=== PATIENT | male | born 1980 | race American Indian/Alaskan Native ===

== ENCOUNTER 2019-06-14 09:56 | Emergency (ER) | payer SELFPAY ==
[2019-06-14 10:59] VITALS: BP 216/129; PULSE 71; RESP 16; TEMP 36.6; O2SAT 95; BMI 56.4
--- NOTE | 2019-06-14 11:22 | CT_ITS ---
WS: [id number] CT HEAD NONCONTRAST HISTORY: worst headache ever TECHNIQUE: Contiguous axial imaging performed through the brain in 2.5 mm imaging. Bone and soft tiss ue windows. Sagittal and coronal reformats reviewed. All CT scans at [facility] use at ast one of these dose optimization techniques: automated exposure control; mA and/or kV adjustment pe r patient size (includes targeted exams where dose is matched to clinical indication); or iterative r econstruction. DLP: 1087.6 mGy.cm COMPARISON: 12/10/2014 No acute intracranial hemorrhage, midline shift or mass effect. No atrophy or prior infarcts or herniation. Ventricles: No ventricular dilatation. 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 Paranasal sinuses: As visualized are clear. Mastoid air cells: Well pneumatized. Calvarium and scalp: Skull is intact with no soft tissue edema or swelling. CT/CT head wo con* [id number] IMPRESSION: No acute intracranial process. Stable noncontrast head CT since 12/10/2014.
--- NOTE | 2019-06-14 11:30 | W.ED.HA ---
HPI - Headache General: Chief Complaint: Headache Stated Complaint: Headache Time Seen by Provider: 06/14/19 11:11 Source: patient Mode of arrival: ambulatory Limitations: no limitations History of Present Illness: HPI Narrative: Patient comes in today with complaints of headache for 2 days. Patient thinks he might have a sinus infection or ear infection. Patient appears mildly unwell. Patient appears in moderate pain. Patient has a history of hypertension and gout. Review of Systems General: Reports: 10 or more systems reviewed and unremarkable except in HPI and below Neuro: Reports: headache PFSH ED PFSH: Statuses (acute, chronic, etc) shown below reflect problem list status as previously entered and may not be historically accurate Social History Smoking and tobacco status: never smoked Physical Exam Const: COMMON NORMALS: no apparent distress and oriented x3 GENERAL APPEARANCE: cooperative HENMT: COMMON NORMALS: normocephalic, external ears normal, EAC's normal and external nose normal HEAD & SCALP: normal to inspection and normocephalic FACE & SINUS: normal facial exam NOSE: external nose normal GENERAL EAR: hearing not grossly impaired EXTERNAL EAR: Yes external ears normal EXTERNAL AUDITORY CANAL: EAC's normal TYMPANIC MEMBRANE: TM abnormal TM laterality: right Details: erythematous and left Details: bulging and erythematous MOUTH: oral and palatal mucosa normal THROAT: posterior oropharynx normal Eye: COMMON NORMALS: PERRL and EOMs intact bilaterally PUPIL: Yes PERRL Neck/C-Spine: COMMON NORMALS: full ROM and no lymphadenopathy Lymph: LYMPHATIC: no lymphedema noted Chest: COMMONS NORMALS: inspection of chest normal and palpation of chest normal Resp: COMMON NORMALS: normal respiratory effort and clear to auscultation bilaterally AUSCULTATION: clear to auscultation bilaterally Cardio: COMMON NORMALS: regular rate and regular rhythm RATE: regular rate RHYTHM: regular rhythm GI: COMMON NORMALS: normal to inspection, nondistended, normoactive bowel sounds and non-tender : COMMON NORMALS: Yes no CVA tenderness BLADDER/KIDNEY EXAM: Yes no CVA tenderness Back/Pelvis: COMMON NORMALS: no CVA tenderness and thoracic and lumbar spine normal to inspection Extremity: COMMON NORMALS: normal to inspection GENERAL: No edema Neuro: COMMON NORMALS: oriented x3, moves all extremities and no focal motor deficits Psych: COMMON NORMALS: mental status grossly normal and cooperative Skin: COMMON NORMALS: no rashes or lesions noted GENERAL SKIN EXAM: no rashes or lesions noted Course ED course: 1222, patient reports some improvement in headache, reports being more tired now. blood pressure improved to 180 systolic. wjw 1320, patient reports headache is much improved at this time. reviewed exam and recommendations for further treatment, and home instructions. wjw Vital Signs: Vital signs: Vital Signs Temperature 97.9 F 06/14/19 10:59 Pulse Rate 71 06/14/19 10:59 Respiratory Rate 16 06/14/19 10:59 Blood Pressure 216/129 06/14/19 10:59 Pulse Oximetry 95 06/14/19 10:59 MDM - Headache MDM Narrative: Medical decision making narrative: Patient comes in with ear pain and headache. Patient's blood pressure is significantly high. Exam notes bilateral tympanic membranes are erythematous. Lungs are clear to auscultation. Heart rate is regular with normal auscultation. Abdomen soft nontender. Patient moves all extremities well. No focal neural deficits is noted. Differential diagnosis includes uncontrolled hypertension, hypertensive emergency, migraine, sinusitis, otitis media, subarachnoid hemorrhage. CT scan of the head was normal. Laboratory values were insignificant. Patient was treated for headache with Reglan and Benadryl with significant improvement. Patient was also given clonidine for blood pressure. Patient reports understanding of care plan and need for follow-up. Patient was treated for otitis media and medication for pain. Patient states understanding and agreed to plan. Lab Data: Labs: Lab Results 06/14/19 06/14/19 Range/Units 12:00 12:00 WBC 4.3 (4.0-10.0) 10^3/ uL RBC 4.81 (4.1-5.3) 10^6/u L Hgb 14.1 (11.7-16.6) g/dL Hct 41.1 L (42.0-52.0) % MCV 85.4 (80-94) fL MCH 29.3 (28.0-34.0) pg MCHC 34.3 (30.0-36.0) g/dL RDW 13.0 (12.1-15.1) % Plt Count 163 (130-400) 10^3/c mm MPV 11.2 H (7.4-10.4) fL Neut % (Auto) 62.9 % Lymph % (Auto) 27.1 % [place] % (Auto) 7.7 % Eos % (Auto) 1.6 % Baso % (Auto) 0.5 % Neut # (Auto) 2.7 (1.8-7.7) 10^3/u L Lymph # (Auto) 1.2 (0.8-4.8) 10^3/u L [place] # (Auto) 0.3 (0.2-0.9) 10^3/u L Eos # (Auto) 0.1 (0.0-0.8) 10^3/u L Baso # (Auto) 0.0 (0.0-0.1) 10^3/u L Nucleated RBC % (a uto) 0 % Nucleated RBCs # 0.0 /100WBC Sodium 139 (136-145) mmol/L Potassium 4.3 (3.5-5.1) mmol/L Chloride 100 (98-107) mmol/L Carbon Dioxide 27 (22-29) mmol/L Anion Gap 16.3 (5-19) BUN 13 (6-20) mg/dL Creatinine 1.0 (0.7-1.2) mg/dL GFR Calculation 83.2 L (90-130) mL/min Glucose 111 H (74-109) mg/dL Calcium 10.2 (8.5-10.5) mg/dL Total Bilirubin 0.6 (0.15-1.2) mg/dL AST 28 (0-40) U/L ALT 24 (0-41) U/L Alkaline Phosphata se 78 (40-130) IU/L Total Protein 7.4 (6.6-8.7) g/dL Albumin 4.7 (3.5-5.2) g/dL Globulin 2.7 (1.3-4.6) g/dL Discharge Plan Discharge Patient Disposition: Home, Self-Care Clinical Impression: Otitis media Qualifiers: Otitis media type: unspecified Chronicity: acute Qualified Code(s): H66.90 - Otitis media, unspecified, unspecified ear Headache Qualifiers: Headache type: unspecified Headache chronicity pattern: acute headache Intractability: intractable Qualified Code(s): R51 - Headache Condition: Stable Prescriptions: New hydrocodone-acetaminophen 5-325 mg tablet 1 tab PO Q6H PRN (Reason: pain) Qty: 7 RF: 0 amoxicillin 500 mg tablet 1,000 mg PO BID 10 Days Qty: 40 RF: 0 No Action ibuprofen 200 mg Tablet 600 mg PO Q4H PRN (Reason: Headache) RF: 0 Discharge Orders: Discharge Order (Routine); Ordered 06/14/19 Ordered By: Brian Dumont Referrals: [facility] [Other] Discharge Diet: Usual diet Discharge Activity: Resume usual activity Patient Instructions: Acute Headache (ED) Activity Restrictions/Additional Instructions: Drink plenty of water with medication Continue routine medication for hypertension Healthy diet and exercise Follow-up with primary care in one week Return to ER for return of symptoms or new concerns Coding Level of Care Code 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
[2019-06-14] MEDS: metoclopramide 5 mg/mL SDV 2 mL 10 MG IVP (11:59)
[2019-06-14] MEDS: diphenhydrAMINE 50 mg/mL SDV 1mL 25 MG IVP (11:59)
[2019-06-14] MEDS: cloNIDine 0.1 mg Tablet PO (11:59)
[2019-06-14 12:11] LABS: Basophils % 0.5 %; Eosinophils # 0.1 10^3/uL (0.0-0.8); Eosinophils % 1.6 %; Hematocrit 41.1 % (42.0-52.0); Hemoglobin 14.1 g/dL (11.7-16.6); Lymphocytes # 1.2 10^3/uL (0.8-4.8); Lymphocytes % 27.1 %; Mean Corpuscular HGB Conc 34.3 g/dL (30.0-36.0); Mean Corpuscular Hemoglobin 29.3 pg (28.0-34.0); Mean Corpuscular Volume 85.4 fL (80-94); Mean Platelet Volume 11.2 fL (7.4-10.4); Monocytes # 0.3 10^3/uL (0.2-0.9); Monocytes % 7.7 %; Neutrophils # 2.7 10^3/uL (1.8-7.7); Neutrophils % 62.9 %; Nucleated Red Blood Cells % 0 %; Platelet Count 163 10^3/cmm (130-400); Red Blood Count 4.81 10^6/uL (4.1-5.3); White Blood Count 4.3 10^3/uL (4.0-10.0)
[2019-06-14 12:41] LABS: Alanine Aminotransferase 24 U/L (0-41); Albumin Level 4.7 g/dL (3.5-5.2); Alkaline Phosphatase 78 IU/L (40-130); Anion Gap 16.3 (5-19); Aspartate Amino Transferase 28 U/L (0-40); Blood Urea Nitrogen 13 mg/dL (6-20); Calcium 10.2 mg/dL (8.5-10.5); Carbon Dioxide 27 mmol/L (22-29); Chloride 100 mmol/L (98-107); Creatinine Clr Calc Pharmacy 151.9955; Globulin 2.7 g/dL (1.3-4.6); Glomerular Filtration Rate 83.2 mL/min (90-130); Glucose 111 mg/dL (74-109); Potassium 4.3 mmol/L (3.5-5.1); Sodium 139 mmol/L (136-145); Total Bilirubin 0.6 mg/dL (0.15-1.2); Total Protein 7.4 g/dL (6.6-8.7)
[2019-06-14 13:43] VITALS: BP 149/99; PULSE 72; RESP 18
== END 2019-06-14 13:21 | disposition home or self-care (01) ==
PROVIDERS: Emergency Provider Nurse Practitioner Family
DX: R51 Headache (principal); H66.90 Otitis media, unspecified, unspecified ear
CPT/HCPCS: 70450; 80053; 85025; 96374; 99281; J1200; J2765

== ENCOUNTER 2019-07-14 17:21 | Emergency (ER) | payer SELFPAY ==
[2019-07-14 18:14] VITALS: BP 201/98; PULSE 75; RESP 16; TEMP 37.1; O2SAT 96
--- NOTE | 2019-07-14 18:15 | ED_ITS ---
HPI - Skin/Abscess/Foreign Bdy General: Stated complaint: spider bite Time Seen by Provider: 07/14/19 18:08 History of Present Illness: HPI narrative: Patient is a 38-year-old male who comes into the ED with possible spider bite and cellulitis. Patient states that 2 days ago he woke up and he had small bites/ulcer the anterior part of his left lower leg. He went and saw an urgent care yesterday to get her evaluated. The determined he had some cellulitis and put patient on Bactrim. Patient picked up antibiotic today and took his first dose today. Patient states that his spider bite/cellulitis has gotten worse since yesterday. Patient does say he has a li ttle bit of pain when he walks due to the cellulitis and he takes ibuprofen for the pain. Denies any fever, nausea, vomiting. Associated symptoms: Deny chills, fever(s), nausea or vomiting Review of Systems Const: Denies: fever, chills or fatigue Eyes: Denies: change in vision or eye discomfort ENMT: Denies: throat pain, painful swallowing, nasal discharge or nasal congestion Card: Denies: chest pain, palpitations, edema, swelling of feet/ankles, shortness of breath on exertion or shortness of breath when lying down Resp: Denies: shortness of breath, productive cough or non-productive cough GI: Denies: abdominal pain, nausea, vomiting, diarrhea, constipation or blood in stool : Denies: flank pain, difficulty urinating, painful urination or blood in urine Musc: Reports: extremity pain (left Lower extremity); Denies: neck pain, back pain or extremity swelling Skin/Breast: Reports: rash; Denies: new lesion Neuro: Denies: headache, numbness in extremities or weakness in extremities [facility] ED PFSH: Social History Smoking and tobacco status: never smoked Physical Exam Const: COMMON NORMALS: oriented x3 HENMT: COMMON NORMALS: normocephalic HEAD & SCALP: normocephalic MOUTH: oral and palatal mucosa normal THROAT: posterior oropharynx normal and uvula midline Neck/C-Spine: COMMON NORMALS: supple GENERAL: Yes normal visual inspection Resp: COMMON NORMALS: normal respiratory effort, no retractions, no use of accessory muscles and clear to auscultation bilaterally AUSCULTATION: clear to auscultation bilaterally Cardio: COMMON NORMALS: regular rate, regular rhythm, S1 normal heart sound, S2 normal heart sound, no gallops, no clicks, no murmurs and peripheral pulses 2+ throughout RATE: regular rate RHYTHM: regular rhythm HEART SOUNDS: S1 normal and S2 normal PERIPHERAL PULSES: pulses 2+ throughout GI: COMMON NORMALS: normal to inspection, nondistended, normoactive bowel sounds, soft to palpation, non-tender and no masses PALPATION: Yes soft : COMMON NORMALS: Yes no CVA tenderness BLADDER/KIDNEY EXAM: Yes no CVA tenderness Back/Pelvis: COMMON NORMALS: no CVA tenderness Extremity: COMMON NORMALS: normal to inspection LEFT LOWER EXTREMITY: Yes lower leg Left lower leg: Yes palpation (tender when palpating over cellulitis/spider bite) and Yes neurovascular exam (intact) Neuro: COMMON NORMALS: oriented x3 and moves all extremities Skin: NARRATIVE SKIN EXAM: Patient has small circular ulcer on his left lower extremity. He has some erythema and warmth surrounding the ulcer. It is hard and nonfluctuant. There appears to be no abscess to drain. LESIONS: lesion noted Course Vital Signs: Vital signs: Vital Signs Temperature 98.8 F 07/14/19 18:14 Pulse Rate 75 07/14/19 18:14 Respiratory Rate 16 07/14/19 18:14 Blood Pressure 201/98 07/14/19 18:14 Pulse Oximetry 96 07/14/19 18:14 Discharge Plan Discharge Patient Disposition: Home, Self-Care Clinical Impression: Cellulitis Qualifiers: Site of cellulitis: extremity Site of cellulitis of extremity: lower extremity Laterality: left Qualified Code(s): L03.116 - Cellulitis of left lower limb Condition: Stable Prescriptions: No Action sulfamethoxazole-trimethoprim [Bactrim] 400-80 mg tablet 1 tab PO BID 10 Days Qty: 20 RF: 0 ibuprofen 200 mg Tablet 600 mg PO Q4H PRN (Reason: Headache) RF: 0 Discharge Orders: Discharge Order (Routine); Ordered 07/14/19 Ordered By: Afshin Wu Referrals: [facility] [Other] Huber Sanders NP [Primary Care Provider] - Discharge Diet: Regular Discharge Activity: Resume usual activity Patient Instructions: Cellulitis Activity Restrictions/Additional Instructions: Follow-up reevaluation in 5 days and either the emergency department, urgent care over PCP. Continue taking your antibiotics as previously prescribed. Take ibuprofen for pain and for any fevers. Drink plenty of fluids and stay hydrated. Clean bite area daily with warm soapy water. Coding Level of Care Code ED Clinical Support Tech for Epi Hassan Exam Comprehensive
[2019-07-14 19:09] VITALS: BP 181/84; PULSE 78; RESP 16; TEMP 36.7; O2SAT 96
== END 2019-07-14 19:12 | disposition home or self-care (01) ==
PROVIDERS: Emergency Provider Physician Assistant; PCP Nurse Practitioner Family
DX: L03.116 Cellulitis of left lower limb (principal)
CPT/HCPCS: 99281; 99282

== ENCOUNTER 2019-09-30 16:05 | Emergency (ER) | payer SELFPAY ==
[2019-09-30 16:29] VITALS: BP 218/129; PULSE 86; RESP 17; TEMP 36.6; O2SAT 97; BMI 59.0
== END 2019-09-30 19:55 | disposition left against medical advice (07) ==
LOC: ER 16:45
PROVIDERS: Emergency Provider Physician Assistant; PCP Nurse Practitioner Family
DX: Z53.21 Procedure and treatment not carried out due to patient leaving prior to being seen by health care provider (principal)
CPT/HCPCS: 99281

== ENCOUNTER 2019-10-01 09:26 | Emergency (ER) | payer SELFPAY ==
[2019-10-01 09:52] VITALS: BMI 59.0
[2019-10-01 10:04] VITALS: BP 211/136; PULSE 77; RESP 18; TEMP 36.9; O2SAT 98
--- NOTE | 2019-10-01 10:13 | PC.NURSE ---
Noted swelling to lower bilateral legs, ankles and feet. Pulse strong and regular in both feet.
--- NOTE | 2019-10-01 10:29 | CT_ITS ---
WS: [id number] CT LUMBAR SPINE, noncontrast. HISTORY: back pain and swelling of extremities TECHNIQUE: Contiguous 2.5 mm axial imaging are performed. Sagittal and coronal reformats are submitte d and reviewed. All CT scans at [facility] use at least one of these dose optimization te chniques: automated exposure control; mA and/or kV adjustment per patient size (includes targeted exa ms where dose is matched to clinical indication); or iterative reconstruction. IV contrast: None DLP: 1905.68 mGy.cm COMPARISON: 06/07/2016 Posterior lumbar alignment is normal. Vacuum disc phenomenon at L2-3. No lumbar spine fracture. Pedic les are all intact. Small endplate osteophytes at all levels. L1-2: Normal. L2-3: Mild annular disc bulging. No stenosis. L3-4: Normal. L4-5: Mild osteophytic ridging and annular disc bulging. Small RIGHT foraminal disc protrusion with m ild contact on the L4 nerve root. Mild widening of facet joints at L4-5. L5-S1: Mild annular disc bulging. Visualized retroperitoneum is normal. CT/CT lumbar spine wo con* [id number] IMPRESSION: 1. No acute lumbar spine fracture. 2. Development of mild degenerative disc disease at L2-3. 3. Very mild widening of the facet joints at L4-5. 4. Very small RIGHT foraminal disc protrusion at L4-5 with slight contact on t he L4 nerve root. Similar to the prior study. No progression.
--- NOTE | 2019-10-01 10:29 | CT_ITS ---
WS: [id number] CT THORACIC SPINE HISTORY: back pain and swelling of extremities TECHNIQUE: Contiguous 2.5 mm axial images are reviewed to thoracic spine. Images are reformatted in s agittal and coronal planes. All CT scans at [facility] use at least one of these dose opt imization techniques: automated exposure control; mA and/or kV adjustment per patient size (includes targeted exams where dose is matched to clinical indication); or iterative reconstruction. DLP: 2380.77 mGy.cm COMPARISON: None available. Posterior thoracic alignment is normal. Mild disc space narrowing and desiccation throughout the lumb ar spine. Vacuum disc phenomenon from T8-9 through T12-L1. Mild anterior wedging of T7 and T8. No acu te fractures. There are multiple small Schmorl's nodes defects throughout the thoracic spine. No comp romise of the cord or disc protrusions. Bilateral foraminal narrowing is mild to moderate from T1-2 through T4-5. No central stenosis. Osteop hyte encroachment upon the posterior lateral thecal sac at the T10 level. CT/CT thoracic spin wo con* [id number] IMPRESSION: 1. No thoracic spine acute fracture. 2. Mild anterior wedging of T7 and T8 is chronic. 3. Mild to moderate bilateral foraminal stenosis from T1-2 through T4-5. 4. Multilevel mild to moderate spondylosis.
--- NOTE | 2019-10-01 10:29 | CT_ITS ---
WS: [id number] CT CERVICAL SPINE HISTORY: back pain and swelling of extremities TECHNIQUE: Contiguous 2.5 mm axial imaging performed through the entire cervical spine. Sagittal and coronal reformats also performed. All CT scans at [facility] use at least one of these do se optimization techniques: automated exposure control; mA and/or kV adjustment per patient size (inc ludes targeted exams where dose is matched to clinical indication); or iterative reconstruction. DLP: 1580.21 mGy.cm COMPARISON: None available. Straightening and reversal the normal cervical lordosis. Mild disc space narrowing at C4-5 and C5-6. Endplate hypertrophic osteophytes. No fracture. Craniocervical junction is normal. Lateral masses of C1 and C2 are aligned. Odontoid is intact. C2-C3: Hypertrophic osteophytic ridging and shallow central disc protrusion. No stenosis. C3-C4: Hypertrophic osteophytic ridging resulting in moderate LEFT foraminal narrowing. Mild central stenosis and shallow central protrusion. C4-C5: Diffuse osteophytic ridging with contact on the ventral thecal sac greatest to the LEFT. Moder ate central stenosis and mild bilateral foraminal stenosis. C5-C6: Diffuse osteophytic ridging with mild osteophyte contact on the LEFT lateral thecal sac. Moder ate central stenosis. C6-C7: Diffuse osteophytic ridging with moderate central stenosis. C7-T1: No significant stenosis. Soft tissues are normal. Lung apices are clear. CT/CT cervical spin wo con* [id number] IMPRESSION: 1. No acute cervical spine fracture. 2. Multilevel foraminal and central cervical stenosis on the basis of osteophy nayana and disc protrusions. Most significant stenosis centrally at C4-5, C5-6 and C6-7. 3. Moderate LEFT foraminal stenosis at C3-4.
--- NOTE | 2019-10-01 10:29 | XR_ITS ---
WS: [id number] PORTABLE CHEST HISTORY: SOB and swelling COMPARISON: 01/04/2016 Lungs are clear and well expanded. No pleural effusion or pneumothorax. Cardiac size: Mildly enlarged cardiac silhouette. Mediastinum/Aorta: Normal mediastinum. No osseous abnormality seen. XR/XR chest 1V portable [id number] IMPRESSION: Mild enlarged heart. No acute findings.
--- NOTE | 2019-10-01 10:34 | W.ED.BACK ---
HPI - Back Pain/Injury General: Chief Complaint: Back Pain/Injury Stated Complaint: BACK PAIN, SWELLING Time Seen by Provider: 10/01/19 09:28 Source: patient Mode of arrival: wheelchair Limitations: physical limitation History of Present Illness: HPI Narrative: pt states back pain worsening over the past two weeks with increased weakness in extremities and swelling MD elicited complaint: back pain Pertinent past history: prior back pain and recent trauma Onset (ago): week(s) (2 weeks) Timing: constant Quality: sharp Location: lumbar spine and thoracic spine Exacerbating factors: movement Relieving factors: none Associated symptoms: Reports no associated symptoms Work related injury: No Review of Systems General: Reports: 10 or more systems reviewed and unremarkable except in HPI and below Resp: Reports: shortness of breath and wheezing : Denies: difficulty urinating Musc: Reports: neck pain, back pain, extremity pain and extremity swelling PFSH ED PFSH: Social History Smoking and tobacco status: never smoked Physical Exam Const: COMMON NORMALS: no apparent distress, oriented x3, no limitations and alert GENERAL APPEARANCE: cooperative and comfortable ORIENTATION/CONSCIOUSNESS: Yes awake, Yes oriented to person, Yes oriented to place and Yes oriented to time HENMT: COMMON NORMALS: normocephalic, head/scalp atraumatic, external ears normal, EAC's normal, TM's normal bilaterally and external nose normal HEAD & SCALP: normal to inspection, normocephalic and atraumatic FACE & SINUS: normal facial exam, sinuses nontender and face symmetric NOSE: external nose normal, nares normal and no nasal discharge EXTERNAL EAR: Yes external ears normal EXTERNAL AUDITORY CANAL: EAC's normal TYMPANIC MEMBRANE: TM's normal bilaterally MOUTH: oral and palatal mucosa normal, lip normal and tongue normal THROAT: posterior oropharynx normal, tonsils normal and uvula midline Eye: COMMON NORMALS: PERRL, EOMs intact bilaterally and conjunctivae normal GENERAL EYE: normal appearance of both eyes and normal light reflex EYELID: eyelids normal CONJUNCTIVA: Yes conjunctivae normal PUPIL: Yes PERRL EOM: Yes EOM abnormal DIRECT OPHTHALMOSCOPY: Yes normal light reflex Neck/C-Spine: COMMON NORMALS: full ROM, no lymphadenopathy, supple, no meningeal signs, no JVD and thyroid normal GENERAL: Yes normal visual inspection THYROID: thyroid normal CERVICAL SPINE: Yes cervical ROM normal and Yes normal cervical lordosis Lymph: LYMPHATIC: no lymphadenopathy noted Chest: COMMONS NORMALS: inspection of chest normal and palpation of chest normal Resp: COMMON NORMALS: no retractions EFFORT & INSPECTION: Yes abnormal respiratory pattern AUSCULTATION: wheezes and diminished lung sounds Cardio: COMMON NORMALS: no JVD, regular rate, regular rhythm, S1 normal heart sound, S2 normal heart sound, no gallops, no clicks, no murmurs, no rub and peripheral pulses 2+ throughout RATE: regular rate RHYTHM: regular rhythm HEART SOUNDS: S1 normal and S2 normal PERIPHERAL PULSES: pulses 2+ throughout GI: COMMON NORMALS: normal to inspection, nondistended, normoactive bowel sounds, soft to palpation, non-tender and no masses PALPATION: Yes soft : COMMON NORMALS: Yes no CVA tenderness BLADDER/KIDNEY EXAM: Yes no CVA tenderness Back/Pelvis: COMMON NORMALS: no CVA tenderness, thoracic and lumbar spine normal to inspection, no thoracic nor lumbar tenderness and thoraco-lumbar ROM normal Extremity: COMMON NORMALS: normal capillary refill, no joint enlargement, no clubbing, cyanosis or edema and no calf tenderness GENERAL: Yes normal exam except as noted and Yes edema (BLE 1 plus) Neuro: COMMON NORMALS: oriented x3, moves all extremities, no focal motor deficits, no sensory deficits noted and gait normal SENSORIUM/ORIENTATION: Yes alert, Yes oriented to person, Yes oriented to place and Yes oriented to time MENINGEAL SIGNS: Yes no meningeal signs Psych: COMMON NORMALS: mental status grossly normal, thought process normal, cooperative, affect normal, speech normal and activity/motor behavior normal SPEECH: Yes normal speech THOUGHT PROCESS: normal thought process Skin: COMMON NORMALS: no rashes or lesions noted, no wounds and skin turgor normal GENERAL SKIN EXAM: no rashes or lesions noted and turgor normal Course ED course: Pt presents with back pain and extremity swelling worsening over the past 2 weeks. He denies NVD but pt is unable to speak in full sentences during exam. Will evaluate BNP to ensure his noted elevated BP is not contributing to any fluid build up around his heart and lungs as well. He notes parasthesias in his hands but has good tone and strength. Labs and CTs ordered. Pain medication orally and IM steroids given for any acute radiculopathies. Reevaluation(s): Reevaluation #1: Pt ct scans reveal likely radiculopathy and multiple abnormalities per CT. Will need to follow up with PCP and referral to neurosurgery. Will proceed with DC with steroids and limited activity until seen by PCP. Time: 12:49 Vital Signs: Vital signs: Vital Signs Temperature 98.5 F 10/01/19 10:04 Pulse Rate 81 10/01/19 12:37 Respiratory Rate 18 10/01/19 12:37 Blood Pressure 173/104 10/01/19 12:37 Pulse Oximetry 97 10/01/19 12:37 MDM - Back Pain/Injury Lab Data: Labs: Lab Results 10/01/19 10/01/19 10/01/19 Range/Units 10:40 10:40 10:45 WBC 4.8 (4.0-10.0) 10^3/ uL RBC 5.00 (4.1-5.3) 10^6/u L Hgb 14.6 (11.7-16.6) g/dL Hct 43.4 (42.0-52.0) % MCV 86.8 (80-94) fL MCH 29.2 (28.0-34.0) pg MCHC 33.6 (30.0-36.0) g/dL RDW 13.2 (12.1-15.1) % Plt Count 171 (130-400) 10^3/c mm MPV 11.1 H (7.4-10.4) fL Neut % (Auto) 62.7 % Lymph % (Auto) 24.9 % [place] % (Auto) 10.3 % Eos % (Auto) 1.5 % Baso % (Auto) 0.4 % Neut # (Auto) 3.0 (1.8-7.7) 10^3/u L Lymph # (Auto) 1.2 (0.8-4.8) 10^3/u L [place] # (Auto) 0.5 (0.2-0.9) 10^3/u L Eos # (Auto) 0.1 (0.0-0.8) 10^3/u L Baso # (Auto) 0.0 (0.0-0.1) 10^3/u L Nucleated RBC % (a uto) 0 % Nucleated RBCs # 0.0 /100WBC Sodium 138 (136-145) mmol/L Potassium 4.6 (3.5-5.1) mmol/L Chloride 99 (98-107) mmol/L Carbon Dioxide 27 (22-29) mmol/L Anion Gap 16.6 (5-19) BUN 15 (6-20) mg/dL Creatinine 0.9 (0.7-1.2) mg/dL GFR Calculation 93.9 (90-130) mL/min Glucose 103 (65-115) mg/dL Calculated Osmolal ity 283 L (285-295) mOsm/k g Calcium 10.3 (8.5-10.5) mg/dL Total Bilirubin 0.4 (0.15-1.2) mg/dL AST 34 (0-40) U/L ALT 30 (0-41) U/L Alkaline Phosphata se 71 (40-130) IU/L NT-Pro-B Natriuret Pep 7 (0-125) pg/mL Total Protein 7.0 (6.6-8.7) g/dL Albumin 4.7 (3.5-5.2) g/dL Globulin 2.3 (1.3-4.6) g/dL Urine Color Straw (Yellow) Urine Appearance Clear (CLEAR) Urine pH 7.5 (5-7) Ur Specific Gravit y 1.015 (1.005-1.030) Urine Protein Neg (Negative) Urine Glucose (UA) Norm (Normal) Urine Ketones Negative (Negative) Urine Blood Neg (Negative) Urine Nitrate Negative (Negative) Urine Bilirubin Neg (NEGATIVE) Urine Urobilinogen Norm (Negative) mg/dL Ur Leukocyte Miladys ase Negative (Negative) Imaging Data^: Other CT: Radiologist's impression: [address] [address] XRay Report Signed Patient: Pankaj Perez Unit #: [id number] : 1980 Age/Sex: 38 / M ADM Date: 10/01/19 Loc: ER Room/Bed: Attending Dr: Ordering Provider/Ordering MD: Shakira aHile NP Date of Service: 10/01/19 Procedure(s): XR chest 1V portable [id number] Accession Number(s): [id number] Report Number: [id number] WS: [id number] PORTABLE CHEST HISTORY: SOB and swelling COMPARISON: 01/04/2016 Lungs are clear and well expanded. No pleural effusion or pneumothorax. Cardiac size: Mildly enlarged cardiac silhouette. Mediastinum/Aorta: Normal mediastinum. No osseous abnormality seen. XR/XR chest 1V portable [id number] IMPRESSION: Mild enlarged heart. No acute findings. Dictated By: Jayne Moreland DO Signed By: Jayne Moreland DO Signed Date/Time: 10/01/19 1135 DD/ 113[address] [place] [address] CT Scan Report Signed Patient: Pankaj Perez Unit #: [id number] : 1980 Age/Sex: 38 / M ADM Date: 10/01/19 Loc: ER Room/Bed: Attending Dr: Ordering Provider/Ordering MD: Shakira Haile NP Date of Service: 10/01/19 Procedure(s): CT cervical spin wo con* [id number] Accession Number(s): [id number] Report Number: [id number] WS: [id number] CT CERVICAL SPINE HISTORY: back pain and swelling of extremities TECHNIQUE: Contiguous 2.5 mm axial imaging performed through the entire cervical spine. Sagittal and coronal reformats also performed. All CT scans at [facility] use at least one of these dose optimization techniques: automated exposure control; mA and/or kV adjustment per patient size (includes targeted exams where dose is matched to clinical indication); or iterative reconstruction. DLP: 1580.21 mGy.cm COMPARISON: None available. Straightening and reversal the normal cervical lordosis. Mild disc space narrowing at C4-5 and C5- 6. Endplate hypertrophic osteophytes. No fracture. Craniocervical junction is normal. Lateral masses of C1 and C2 are aligned. Odontoid is intact. C2-C3: Hypertrophic osteophytic ridging and shallow central disc protrusion. No stenosis. C3-C4: Hypertrophic osteophytic ridging resulting in moderate LEFT foraminal narrowing. Mild central stenosis and shallow central protrusion. C4-C5: Diffuse osteophytic ridging with contact on the ventral thecal sac greatest to the LEFT. Moderate central stenosis and mild bilateral foraminal stenosis. C5-C6: Diffuse osteophytic ridging with mild osteophyte contact on the LEFT lateral thecal sac. Moderate central stenosis. C6-C7: Diffuse osteophytic ridging with moderate central stenosis. C7-T1: No significant stenosis. Soft tissues are normal. Lung apices are clear. CT/CT cervical spin wo con* [id number] IMPRESSION: 1. No acute cervical spine fracture. 2. Multilevel foraminal and central cervical stenosis on the basis of osteophytes and disc protrusions. Most significant stenosis centrally at C4-5, C5-6 and C6-7. 3. Moderate LEFT foraminal stenosis at C3-4. Dictated By: Jayne Moreland DO Signed By: Jayne Moreland DO Signed Date/Time: 10/01/19 1133 DD/ [address] [place] [address] CT Scan Report Signed Patient: Pankaj Perez Unit #: [id number] : 1980 Age/Sex: 38 / M ADM Date: 10/01/19 Loc: ER Room/Bed: Attending Dr: Ordering Provider/Ordering MD: Shakira Haile NP Date of Service: 10/01/19 Procedure(s): CT thoracic spin wo con* [id number] Accession Number(s): [id number] Report Number: [id number] WS: [id number] CT THORACIC SPINE HISTORY: back pain and swelling of extremities TECHNIQUE: Contiguous 2.5 mm axial images are reviewed to thoracic spine. Images are reformatted in sagittal and coronal planes. All CT scans at [facility] use at least one of these dose optimization techniques: automated exposure control; mA and/or kV adjustment per patient size (includes targeted exams where dose is matched to clinical indication); or iterative reconstruction. DLP: 2380.77 mGy.cm COMPARISON: None available. Posterior thoracic alignment is normal. Mild disc space narrowing and desiccation throughout the lumbar spine. Vacuum disc phenomenon from T8-9 through T12-L1. Mild anterior wedging of T7 and T8. No acute fractures. There are multiple small Schmorl's nodes defects throughout the thoracic spine. No compromise of the cord or disc protrusions. Bilateral foraminal narrowing is mild to moderate from T1-2 through T4-5. No central stenosis. Osteophyte encroachment upon the posterior lateral thecal sac at the T10 level. CT/CT thoracic spin wo con* [id number] IMPRESSION: 1. No thoracic spine acute fracture. 2. Mild anterior wedging of T7 and T8 is chronic. 3. Mild to moderate bilateral foraminal stenosis from T1-2 through T4-5. 4. Multilevel mild to moderate spondylosis. Dictated By: Jayne Moreland DO Signed By: Jayne Moreland DO Signed Date/Time: 10/01/19 1148 DD/ [address] [place] [address] CT Scan Report Signed Patient: Pankaj Perez Unit #: [id number] : 1980 Age/Sex: 38 / M ADM Date: 10/01/19 Loc: ER Room/Bed: Attending Dr: Ordering Provider/Ordering MD: Shakira Haile NP Date of Service: 10/01/19 Procedure(s): CT lumbar spine wo con* [id number] Accession Number(s): [id number] Report Number: [id number] WS: [id number] CT LUMBAR SPINE, noncontrast. HISTORY: back pain and swelling of extremities TECHNIQUE: Contiguous 2.5 mm axial imaging are performed. Sagittal and coronal reformats are submitted and reviewed. All CT scans at [facility] use at least one of these dose o ptimization techniques: automated exposure control; mA and/or kV adjustment per patient size (includes targeted exams where dose is matched to clinical indication); or iterative reconstruction. IV contrast: None DLP: 1905.68 mGy.cm COMPARISON: 06/07/2016 Posterior lumbar alignment is normal. Vacuum disc phenomenon at L2-3. No lumbar spine fracture. Pedicles are all intact. Small endplate osteophytes at all levels. L1-2: Normal. L2-3: Mild annular disc bulging. No stenosis. L3-4: Normal. L4-5: Mild osteophytic ridging and annular disc bulging. Small RIGHT foraminal disc protrusion with mild contact on the L4 nerve root. Mild widening of facet joints at L4-5. L5-S1: Mild annular disc bulging. Visualized retroperitoneum is normal. CT/CT lumbar spine wo con* [id number] IMPRESSION: 1. No acute lumbar spine fracture. 2. Development of mild degenerative disc disease at L2-3. 3. Very mild widening of the facet joints at L4-5. 4. Very small RIGHT foraminal disc protrusion at L4-5 with slight contact on the L4 nerve root. Similar to the prior study. No progression. Dictated By: Jayne Moreland DO Signed By: Jayne Moreland DO Signed Date/Time: 10/01/19 1143 DD/ 1139 Discharge Plan Discharge Patient Disposition: Home, Self-Care Clinical Impression: Lumbar radiculopathy Condition: Stable Prescriptions: New Medrol (Wade) 4 mg tablets,dose pack See Rx Instructions .ROUTE .COMPLEX Qty: 21 RF: 0 cyclobenzaprine 10 mg tablet 10 mg PO Q8H PRN (Reason: muscle spasm) Qty: 14 RF: 0 Tylenol-Codeine #3 300-30 mg tablet 1 tab PO Q8H PRN (Reason: pain) Qty: 14 RF: 0 Referrals: Rafael Maradiaga MD [Physician] - (Radiculopathy and back pain ) Huber Sanders NP [Primary Care Provider] - Discharge Diet: Usual diet Discharge Activity: Increase activity as tolerated Activity Restrictions/Additional Instructions: Follow up with PCP without family and consult with neurosurgery Stand Alone Forms: Work/School Release Coding Level of Care Code 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
[2019-10-01] MEDS: dexamethasone 10 mg/mL INJ IM (10:44)
[2019-10-01] MEDS: HYDROcodone-acetaminophen 5-325 mg Tablet 2 TAB PO (10:44)
[2019-10-01] MEDS: orphenadrine 30 mg/mL Inj 2 mL 60 MG IM (10:44)
[2019-10-01] MEDS: naproxen 500 mg Tablet PO (10:45)
[2019-10-01 10:50] LABS: Basophils % 0.4 %; Eosinophils # 0.1 10^3/uL (0.0-0.8); Eosinophils % 1.5 %; Hematocrit 43.4 % (42.0-52.0); Hemoglobin 14.6 g/dL (11.7-16.6); Lymphocytes # 1.2 10^3/uL (0.8-4.8); Lymphocytes % 24.9 %; Mean Corpuscular HGB Conc 33.6 g/dL (30.0-36.0); Mean Corpuscular Hemoglobin 29.2 pg (28.0-34.0); Mean Corpuscular Volume 86.8 fL (80-94); Mean Platelet Volume 11.1 fL (7.4-10.4); Monocytes # 0.5 10^3/uL (0.2-0.9); Monocytes % 10.3 %; Neutrophils % 62.7 %; Nucleated Red Blood Cells % 0 %; Platelet Count 171 10^3/cmm (130-400); Red Cell Distribution Width 13.2 % (12.1-15.1); White Blood Count 4.8 10^3/uL (4.0-10.0)
[2019-10-01 10:56] LABS: Add Urine Microscopic? NO
[2019-10-01 11:05] LABS: Bilirubin Urine Neg (NEGATIVE); Blood Urine Neg (Negative); Glucose Urine UA Norm (Normal); Ketones Urine Negative (Negative); Leukocyte Esterase Urine Negative (Negative); Nitrate Urine Negative (Negative); Protein Urine Neg (Negative); Specific Gravity, Urine 1.015 (1.005-1.030); Urine Appearance Clear (CLEAR); Urine Color Straw (Yellow); Urobilinogen Urine Norm (Negative); pH Urine 7.5 (5-7)
[2019-10-01 11:38] LABS: Alanine Aminotransferase 30 U/L (0-41); Albumin Level 4.7 g/dL (3.5-5.2); Alkaline Phosphatase 71 IU/L (40-130); Anion Gap 16.6 (5-19); Aspartate Amino Transferase 34 U/L (0-40); Blood Urea Nitrogen 15 mg/dL (6-20); Calcium 10.3 mg/dL (8.5-10.5); Carbon Dioxide 27 mmol/L (22-29); Chloride 99 mmol/L (98-107); Globulin 2.3 g/dL (1.3-4.6); Glomerular Filtration Rate 93.9 mL/min (90-130); Glucose 103 mg/dL (65-115); NT Pro B Type Natriuretic Pept 7 pg/mL (0-125); Osmolality Calculated 283 mOsm/kg (285-295); Potassium 4.6 mmol/L (3.5-5.1); Sodium 138 mmol/L (136-145); Total Bilirubin 0.4 mg/dL (0.15-1.2)
[2019-10-01 12:37] VITALS: BP 173/104; PULSE 81; RESP 18; O2SAT 97
[2019-10-01 13:32] VITALS: BP 197/102; PULSE 77; RESP 18; O2SAT 96
--- NOTE | 2019-10-01 13:32 | DCPLANNER ---
crisis manager was asked to schedule a follow up appointment for patient with Dr. Maradiaga. crisis manager called [facility], spoke with Brianne, gave clinic patients information. crisis manager was told that patients information would be printed and given to Jeramy for review.
--- NOTE | 2019-10-04 09:58 | DCPLANNER ---
Patient had an appointment scheduled with Dr. Maradiaga, for 10.03.19, patient did attend appointment.
== END 2019-10-01 13:36 | disposition home or self-care (01) ==
PROVIDERS: Emergency Provider Nurse Practitioner Family; PCP Nurse Practitioner Family
DX: M54.16 Radiculopathy, lumbar region (principal)
CPT/HCPCS: 12345; 71045; 72125; 72128; 72131; 80053; 81003; 83880; 85025; 96372; 99281; 99284; J1100; J2360

== ENCOUNTER 2019-10-04 10:55 | Outpatient (CLI) | payer SELFPAY ==
--- NOTE | 2019-10-04 11:02 | XR_ITS ---
WS: [id number] LATERAL LUMBAR SPINE: 3 view. Lateral radiographs are performed in upright neutral, flexion and extension to the patient's toleranc e. HISTORY: Low back pain COMPARISON: 04/27/2016 Normal posterior lumbar alignment. With flexion and extension there is no instability. Endplate osteo phytes throughout the lumbar spine. XR/XR lumbar spine f/e only [id number] IMPRESSION: No lumbar spine instability.
--- NOTE | 2019-10-04 11:02 | XR_ITS ---
WS: [id number] LATERAL CERVICAL SPINE: 3 view. Lateral radiographs are performed in upright neutral, flexion and extension to the patient's toleranc e. HISTORY: Neck pain COMPARISON: 10/01/2019 Straightening and reversal normal cervical lordosis. Reversal is centered at C5. Mild disc space narr owing at C4-5 and C5-6 endplate osteophytes. No fracture. With extension the alignment returns to kathrine r normal. There is no instability. XR/XR cervical spine fl/ex [id number] IMPRESSION: 1. No cervical spine instability with flexion or extension. 2. Reversal of the normal cervical lordosis centered at C5 during neutral imag ing.
== END 2019-10-04 10:56 | disposition home or self-care (01) ==
LOC: RAD 11:00
PROVIDERS: PCP Nurse Practitioner Family; Visit Provider Specialist
DX: M54.2 Cervicalgia (principal); M54.5 Low back pain
CPT/HCPCS: 72040; 72120

== ENCOUNTER → 2019-10-23 13:52 | Outpatient (BNVA) | payer SELFPAY | PROVIDERS: PCP Nurse Practitioner Family; Visit Provider Specialist | DX: G56.03 Carpal tunnel syndrome, bilateral upper limbs (principal) | CPT/HCPCS: 95908 ==

== ENCOUNTER 2019-12-06 17:05 | Emergency (ER) | payer SELFPAY ==
[2019-12-06 17:22] VITALS: BP 214/112; PULSE 85; RESP 18; TEMP 37.1; O2SAT 98; BMI 60.8
--- NOTE | 2019-12-06 18:39 | ED_ITS ---
HPI - Extremity Problem General: Chief complaint: Extremity Problem,Nontraumatic Stated complaint: right foot/leg swelling Time Seen by Provider: 12/06/19 18:35 Source: patient Mode of arrival: ambulatory Limitations: no limitations History of Present Illness: HPI Narrative: Patient presents with right foot pain, redness, swelling. Patient does have a history of recurrent cellulitis to this extremity. Patient appears well. Patient appears in no acute distress. Patient does have a history of hypertension does not take any routine medication. Patient does report that his has been giving him potassium and furosemide due to his increased swelling in the extremities. Complaint: extremity swelling Review of Systems General: Reports: 10 or more systems reviewed and unremarkable except in HPI and below Musc: Reports: extremity pain and extremity swelling PFS ED PFSH: Medical History (Updated 12/06/19 @ 19:59 by KAMILA Byrd) Cervical disc disorder with myelopathy of mid-cervical region Displacement of lumbar intervertebral disc Low back pain of over 3 months duration Lumbar disc disease Morbid obesity with BMI of 50.0-59.9, adult Neck pain of over 3 months duration Stenosis of cervical spine with myelopathy Surgical History No pertinent past surgical history Family History Mother SVT (supraventricular tachycardia) Arthritis Hypertension Grandfather Arthritis Dementia Diabetes Hypertension Grandmother Arthritis Dementia Diabetes Hypertension Social History Smoking and tobacco status: never smoked Alcohol intake: current Alcohol intake frequency: holidays/special occasions only Household members: spouse and children Marital status: Current occupational status: unemployed History of recent travel: No Physical Exam Const: COMMON NORMALS: no acute distress and patient oriented x3 GENERAL APPEARANCE: cooperative HENMT: COMMON NORMALS: normocephalic and Normal external nose present HEAD & SCALP: normal to inspection and normocephalic NOSE: Normal external nose present MOUTH: Normal oral and palatal mucosa present Eye: GENERAL EYE: appearance normal, both eyes and all related structures Neck/C-Spine: COMMON NORMALS: full ROM Chest: COMMONS NORMALS: normal inspection of the chest Resp: COMMON NORMALS: normal respiratory effort EFFORT & INSPECTION: Yes able to speak in complete sentences Cardio: COMMON NORMALS: regular rate and regular rhythm RATE: regular rate RHYTHM: regular rhythm GI: COMMON NORMALS: non-tender Back/Pelvis: COMMON NORMALS: thoracic and lumbar spine normal to inspection Extremity: NARRATIVE EXTREMITY EXAM: Mild redness and swelling to the right lower extremity. Pulses are intact. Prompt capillary refill is noted. Patient does have some mild weeping of the skin. Neuro: COMMON NORMALS: patient oriented x3 and moves all extremities Psych: COMMON NORMALS: mental status grossly normal and cooperative Skin: COMMON NORMALS: no rashes or lesions noted GENERAL SKIN EXAM: no rashes or lesions noted Course Vital Signs: Vital signs: Vital Signs Temperature 98.7 F 12/06/19 17: Pulse Rate 85 12/06/19 17: Respiratory Rate 18 12/06/19 17:22 Blood Pressure 214/112 12/06/19 17: Pulse Oximetry 98 12/06/19 17:22 MDM - Extremity (Nontraumatic) MDM Narrative: Medical decision making narrative: Patient comes in for increased redness and swelling to the right lower extremity. On exam we note pulses intact to lower extremity. Patient has some edema to the right lower extremity with some redness to the foot. Prompt capillary refill is intact. Differential diagnosis includes but not limited to DVT, cellulitis, gout. X-ray of the foot was negative for any abnormality. CBC and CMP were unremarkable. Reviewed exam with patient recommended treatment for cellulitis we will also treat with colchicine due to history of gout. Patient reports understanding of care plan and need for follow-up. Lab Data: Labs: Lab Results 12/06/19 12/06/19 12/06/19 Range/Units 18:45 18:45 18:45 WBC 5.5 (4.0-10.0) 10^3/ uL RBC 4.52 (4.1-5.3) 10^6/u L Hgb 13.7 (11.7-16.6) g/dL Hct 40.0 L (42.0-52.0) % MCV 88.5 (80-94) fL MCH 30.3 (28.0-34.0) pg MCHC 34.3 (30.0-36.0) g/dL RDW 13.1 (12.1-15.1) % Plt Count 191 (130-400) 10^3/c mm MPV 10.6 H (7.4-10.4) fL Neut % (Auto) 64.5 % Lymph % (Auto) 23.5 % [place] % (Auto) 10.0 % Eos % (Auto) 1.3 % Baso % (Auto) 0.5 % Neut # (Auto) 3.54 (1.8-7.7) 10^3/u L Lymph # (Auto) 1.3 (0.8-4.8) 10^3/u L [place] # (Auto) 0.6 (0.2-0.9) 10^3/u L Eos # (Auto) 0.1 (0.0-0.8) 10^3/u L Baso # (Auto) 0.0 (0.0-0.1) 10^3/u L Nucleated RBC % (a uto) 0 % Nucleated RBCs # 0.0 /100WBC D-Dimer 0.40 (0-0.59) ug/mIFE U Sodium 136 (136-145) mmol/L Potassium 3.9 (3.5-5.1) mmol/L Chloride 98 (98-107) mmol/L Carbon Dioxide 29 (22-29) mmol/L Anion Gap 12.9 (5-19) BUN 14 (6-20) mg/dL Creatinine 0.9 (0.7-1.2) mg/dL GFR Calculation 93.5 (90-130) mL/min Glucose 102 (65-115) mg/dL Calculated Osmolal ity 278 L (285-295) mOsm/k g Uric Acid (3.4-7.0) mg/dL Calcium 9.2 (8.5-10.5) mg/dL Total Bilirubin 0.6 (0.15-1.2) mg/dL AST 24 (0-40) U/L ALT 22 (0-41) U/L Alkaline Phosphata se 75 (40-130) IU/L Total Protein 7.1 (6.6-8.7) g/dL Albumin 4.5 (3.5-5.2) g/dL Globulin 2.6 (1.3-4.6) g/dL 12/06/19 Range/Units 18:45 WBC (4.0-10.0) 10^3/ uL RBC (4.1-5.3) 10^6/u L Hgb (11.7-16.6) g/dL Hct (42.0-52.0) % MCV (80-94) fL MCH (28.0-34.0) pg MCHC (30.0-36.0) g/dL RDW (12.1-15.1) % Plt Count (130-400) 10^3/c mm MPV (7.4-10.4) fL Neut % (Auto) % Lymph % (Auto) % [place] % (Auto) % Eos % (Auto) % Baso % (Auto) % Neut # (Auto) (1.8-7.7) 10^3/u L Lymph # (Auto) (0.8-4.8) 10^3/u L [place] # (Auto) (0.2-0.9) 10^3/u L Eos # (Auto) (0.0-0.8) 10^3/u L Baso # (Auto) (0.0-0.1) 10^3/u L Nucleated RBC % (a uto) % Nucleated RBCs # /100WBC D-Dimer (0-0.59) ug/mIFE U Sodium (136-145) mmol/L Potassium (3.5-5.1) mmol/L Chloride (98-107) mmol/L Carbon Dioxide (22-29) mmol/L Anion Gap (5-19) BUN (6-20) mg/dL Creatinine (0.7-1.2) mg/dL GFR Calculation (90-130) mL/min Glucose (65-115) mg/dL Calculated Osmolal ity (285-295) mOsm/k g Uric Acid 9.8 H (3.4-7.0) mg/dL Calcium (8.5-10.5) mg/dL Total Bilirubin (0.15-1.2) mg/dL AST (0-40) U/L ALT (0-41) U/L Alkaline Phosphata se (40-130) IU/L Total Protein (6.6-8.7) g/dL Albumin (3.5-5.2) g/dL Globulin (1.3-4.6) g/dL Discharge Plan Discharge Patient Disposition: Home, Self-Care Clinical Impression: Cellulitis Qualifiers: Site of cellulitis: extremity Site of cellulitis of extremity: lower extremity Laterality: right Qualified Code(s): L03.115 - Cellulitis of right lower limb Condition: Stable Prescriptions: New cephalexin 500 mg capsule 500 mg PO TID 10 Days Qty: 30 RF: 0 colchicine 0.6 mg tablet 1.2 mg PO DAILY Qty: 3 RF: 0 No Action Gummies Children Multivitamin Tablet,Chewable 1 tab PO DAILY RF: 0 cyclobenzaprine 10 mg tablet 10 mg PO Q8H PRN (Reason: muscle spasm) Qty: 14 RF: 0 Aleve 220 mg Tablet 440 mg PO PRN PRN (Reason: Pain) RF: 0 furosemide 1 tab PO PRN PRN (Reason: edema/fluid overload) RF: 0 Discharge Orders: Discharge Order (Routine); Ordered 12/06/19 Ordered By: Brian Dumont Referrals: Huber Sanders NP [Primary Care Provider] - Discharge Diet: Usual diet Patient Instructions: Cellulitis (ED) Activity Restrictions/Additional Instructions: Home and rest. Drink plenty of water. Take cephalexin 3 times a day for the next 10 days this is for the treatment of cellulitis. Use colchicine by taking 2 tabs when you receive the medication and then repeat 1 tab an hour this is for the treatment of gout. Follow-up with primary care for recheck on blood pressure. Use acetaminophen or naproxen for pain. Elevate feet as much as possible for swelling. You can continue furosemide and potassium for your blood pressure and swelling. Return to the ER for high fever or worsening symptoms. Coding Level of Care Code ED Special Education Administrator for Epi Fwibrahima Exam Comprehensive
[2019-12-06 18:54] LABS: Basophils % 0.5 %; Eosinophils # 0.1 10^3/uL (0.0-0.8); Eosinophils % 1.3 %; Hemoglobin 13.7 g/dL (11.7-16.6); Lymphocytes # 1.3 10^3/uL (0.8-4.8); Lymphocytes % 23.5 %; Mean Corpuscular HGB Conc 34.3 g/dL (30.0-36.0); Mean Corpuscular Hemoglobin 30.3 pg (28.0-34.0); Mean Corpuscular Volume 88.5 fL (80-94); Mean Platelet Volume 10.6 fL (7.4-10.4); Monocytes # 0.6 10^3/uL (0.2-0.9); Neutrophils # 3.54 10^3/uL (1.8-7.7); Neutrophils % 64.5 %; Nucleated Red Blood Cells % 0 %; Platelet Count 191 10^3/cmm (130-400); Red Blood Count 4.52 10^6/uL (4.1-5.3); Red Cell Distribution Width 13.1 % (12.1-15.1); White Blood Count 5.5 10^3/uL (4.0-10.0)
[2019-12-06 19:08] LABS: Alanine Aminotransferase 22 U/L (0-41); Albumin Level 4.5 g/dL (3.5-5.2); Alkaline Phosphatase 75 IU/L (40-130); Anion Gap 12.9 (5-19); Aspartate Amino Transferase 24 U/L (0-40); Blood Urea Nitrogen 14 mg/dL (6-20); Calcium 9.2 mg/dL (8.5-10.5); Carbon Dioxide 29 mmol/L (22-29); Chloride 98 mmol/L (98-107); Creatinine Clr Calc Pharmacy 175.3315; Globulin 2.6 g/dL (1.3-4.6); Glomerular Filtration Rate 93.5 mL/min (90-130); Glucose 102 mg/dL (65-115); Osmolality Calculated 278 mOsm/kg (285-295); Potassium 3.9 mmol/L (3.5-5.1); Sodium 136 mmol/L (136-145); Total Bilirubin 0.6 mg/dL (0.15-1.2); Total Protein 7.1 g/dL (6.6-8.7)
--- NOTE | 2019-12-06 19:16 | XRR_ITS ---
PROCEDURE INFORMATION: Exam: XR Right Foot Complete Exam date and time: 12/06/2019 7:33 PM Age: 39 years old Clinical indication: Bilateral; Patient HX: Right foot pain // no trauma; Additional info: Injury TECHNIQUE: Imaging protocol: XR Right foot. Views: 3 or more views. COMPARISON: CR Foot 3 views, RIGHT* [id number] 09/04/2018 8:46 PM FINDINGS: Bones/joints: Degenerative changes of the 1st metatarsophalangeal and interphalangeal joints and the intertarsal joints. The bones are intact with no fracture or bone destruction identified. Soft tissues: Severe soft tissue swelling of the right foot and ankle. XR/XR foot RT min 3V* [id number] IMPRESSION: 1. Degenerative changes and soft tissue swelling.
[2019-12-06 19:57] LABS: Uric Acid 9.8 mg/dL (3.4-7.0)
[2019-12-06 20:22] VITALS: BP 174/98; PULSE 88; RESP 18; TEMP 36.7; O2SAT 99
== END 2019-12-06 20:24 | disposition home or self-care (01) ==
PROVIDERS: Emergency Provider Nurse Practitioner Family; PCP Nurse Practitioner Family
DX: L03.115 Cellulitis of right lower limb (principal)
CPT/HCPCS: 12345; 73630; 80053; 84550; 85025; 85378; 99281; 99283

== ENCOUNTER 2020-08-20 10:56 | Emergency (ER) | payer SELFPAY ==
[2020-08-20] VITALS (13 sets, daily range): BP systolic 166–233; BP diastolic 102–131; PULSE 74–98; RESP 18–20; TEMP 36.8; O2SAT 95–98; BMI 57.6
[2020-08-20 11:48] LABS: Basophils % 0.5 %; Eosinophils # 0.1 10^3/uL (0.0-0.8); Eosinophils % 1.9 %; Hematocrit 40.5 % (42.0-52.0); Hemoglobin 13.6 g/dL (11.7-16.6); Lymphocytes # 0.9 10^3/uL (0.8-4.8); Lymphocytes % 21.4 %; Mean Corpuscular HGB Conc 33.6 g/dL (30.0-36.0); Mean Corpuscular Hemoglobin 29.6 pg (28.0-34.0); Monocytes # 0.4 10^3/uL (0.2-0.9); Neutrophils # 2.83 10^3/uL (1.8-7.7); Nucleated Red Blood Cells % 0 %; Platelet Count 154 10^3/cmm (130-400); Red Cell Distribution Width 13.2 % (12.1-15.1); White Blood Count 4.3 10^3/uL (4.0-10.0)
--- NOTE | 2020-08-20 11:48 | XR_ITS ---
WS: [id number] LEFT ELBOW: 3 VIEW(S) TECHNIQUE: AP, oblique and lateral. HISTORY: pain/swelling COMPARISON: None available. No acute fractures or dislocation. No joint effusion is identified. There is a small osteophyte at the triceps tendon attachment to the olecranon. There is mild soft tissue edema along the posterior proximal forearm. XR/XR elbow LT min 3V* [id number] IMPRESSION: No LEFT elbow fracture or joint effusion.
--- NOTE | 2020-08-20 11:48 | W.ED.GENADLT ---
HPI - General Adult General: Chief complaint: General Medical Stated complaint: AB PAIN, SWOLLEN ARMS, NAUSEA Time Seen by Provider: 08/20/20 11:29 History of Present Illness: HPI narrative: 39-year-old male presents emergency room complaining of mid abdominal pain bilaterally radiating to the groin. Patient states he has a history of kidney stones he has had some discoloration of his urine over the last day or 2 but no kari blood. He denies fever sweats or chills no dysuria. He also has some left elbow pain with pain with flexion extension. Onset (ago): day(s) Location: abdomen Severity: moderate Quality: aching Pain Consistency: constant Exacerbating factors: none Associated symptoms: Deny chest pain, confusion, cough, diaphoresis, decreased appetite, dyspnea, fevers/chills, headache(s), malaise, nausea, rash, palpitations, seizures, short of breath, syncope, vomiting or weakness Treatments prior to arrival: none Review of Systems Const: Denies: malaise or diaphoresis ENMT: Denies: throat pain, ear or mastoid pain, nasal discharge or nasal congestion Card: Denies: chest pain, palpitations or syncope Resp: Denies: dyspnea GI: Denies: nausea : Denies: flank pain, dysuria, urinary frequency or urinary urgency Skin/Breast: Denies: rash Neuro: Denies: headache(s) or confusion PFSH ED PFSH: Medical History Cervical disc disorder with myelopathy of mid-cervical region Displacement of lumbar intervertebral disc Low back pain of over 3 months duration Lumbar disc disease Morbid obesity with BMI of 50.0-59.9, adult Neck pain of over 3 months duration Stenosis of cervical spine with myelopathy Surgical History No pertinent past surgical history Family History Mother SVT (supraventricular tachycardia) Arthritis Hypertension Grandfather Arthritis Dementia Diabetes Hypertension Grandmother Arthritis Dementia Diabetes Hypertension Social History Smoking and tobacco status: never smoked Alcohol intake: current Alcohol intake frequency: holidays/special occasions only Household members: spouse and children Marital status: Current occupational status: unemployed History of recent travel: No Physical Exam Const: COMMON NORMALS: no acute distress GENERAL APPEARANCE: cooperative and comfortable ORIENTATION/CONSCIOUSNESS: Yes awake, Yes oriented to person, Yes oriented to place and Yes oriented to time HENMT: COMMON NORMALS: normocephalic, atraumatic and hearing grossly normal bilaterally HEAD & SCALP: normocephalic and atraumatic Neck/C-Spine: COMMON NORMALS: no JVD Resp: COMMON NORMALS: normal respiratory effort, No retractions, No use of accessory muscles and clear to auscultation bilaterally AUSCULTATION: clear to auscultation bilaterally Cardio: COMMON NORMALS: no JVD, regular rate, regular rhythm and No murmurs present (Cardio) RATE: regular rate RHYTHM: regular rhythm GI: COMMON NORMALS: Soft to palpation and No hepatosplenomegaly present AUSCULTATION: Yes normoactive bowel sounds PALPATION: Yes Soft to palpation, No Tenderness to palpation present (GI), No Guarding due to palpation present (GI) and Yes No hepatosplenomegaly present Extremity: COMMON NORMALS: normal to inspection, capillary refill normal, no clubbing, cyanosis or edema, no calf tenderness and no pedal edema Neuro: SENSORIUM/ORIENTATION: Yes oriented to person, Yes oriented to place and Yes oriented to time Skin: COMMON NORMALS: no rashes or lesions noted GENERAL SKIN EXAM: no rashes or lesions noted Course Vital Signs: Vital signs: Vital Signs Temperature 98.2 F 08/20/20 11:18 Pulse Rate 98 08/20/20 19:12 Respiratory Rate 20 H 08/20/20 19:12 Blood Pressure 166/110 08/20/20 19:12 Pulse Oximetry 98 08/20/20 19:12 MDM - General Adult MDM Narrative: Medical decision making narrative: CT is unremarkable. Started him on indomethacin and Medrol Dosepak for the gout any elbow lisinopril for his hypertension. Supportive cares follow-up with his primary care doctor in the next week to reevaluate blood pressure and gouty arthritis Lab Data: Labs: Lab Results 08/20/20 08/20/20 08/20/20 Range/Units 11:35 11:35 13:30 WBC 4.3 (4.0-10.0) 10^3/ uL RBC 4.60 (4.1-5.3) 10^6/u L Hgb 13.6 (11.7-16.6) g/dL Hct 40.5 L (42.0-52.0) % MCV 88.0 (80-94) fL MCH 29.6 (28.0-34.0) pg MCHC 33.6 (30.0-36.0) g/dL RDW 13.2 (12.1-15.1) % Plt Count 154 (130-400) 10^3/c mm MPV 11.0 H (7.4-10.4) fL Neut % (Auto) 66.0 % Lymph % (Auto) 21.4 % [place] % (Auto) 10.0 % Eos % (Auto) 1.9 % Baso % (Auto) 0.5 % Neut # (Auto) 2.83 (1.8-7.7) 10^3/u L Lymph # (Auto) 0.9 (0.8-4.8) 10^3/u L [place] # (Auto) 0.4 (0.2-0.9) 10^3/u L Eos # (Auto) 0.1 (0.0-0.8) 10^3/u L Baso # (Auto) 0.0 (0.0-0.1) 10^3/u L Nucleated RBC % (a uto) 0 % Nucleated RBCs # 0.0 /100WBC Sodium 135 L (136-145) mmol/L Potassium 3.9 (3.5-5.1) mmol/L Chloride 100 (98-107) mmol/L Carbon Dioxide 27 (22-29) mmol/L Anion Gap 11.9 (5-19) BUN 11 (6-20) mg/dL Creatinine 1.0 (0.7-1.2) mg/dL GFR Calculation 82.8 L (90-130) mL/min Glucose 120 H (65-115) mg/dL POC Glucose (70-110) mg/dL Calculated Osmolal ity 281 L (285-295) mOsm/k g Calcium 9.0 (8.5-10.5) mg/dL Total Bilirubin 0.4 (0.15-1.2) mg/dL AST 40 (0-40) U/L ALT 36 (0-41) U/L Alkaline Phosphata se 79 (40-130) IU/L Total Protein 7.0 (6.6-8.7) g/dL Albumin 4.1 (3.5-5.2) g/dL Globulin 2.9 (1.3-4.6) g/dL Lipase 21 (13-60) U/L Urine Color Yellow (Yellow) Urine Appearance Clear (CLEAR) Urine pH 6.5 (5-7) Ur Specific Gravit y 1.015 (1.005-1.030) Urine Protein Trace (Negative) Urine Glucose (UA) Norm (Normal) Urine Ketones Negative (Negative) Urine Blood Neg (Negative) Urine Nitrate Negative (Negative) Urine Bilirubin Neg (Negative) Urine Urobilinogen 1 H (Negative) mg/dL Ur Leukocyte Miladys ase Negative (Negative) Urine RBC None (0-2) /hpf Urine WBC None (0-5) /hpf Ur Squamous Epith Cells None (0-5) /hpf Amorphous Sediment Not Reportable Urine Bacteria None (NONE) /hpf 08/20/20 Range/Units 16:46 WBC (4.0-10.0) 10^3/ uL RBC (4.1-5.3) 10^6/u L Hgb (11.7-16.6) g/dL Hct (42.0-52.0) % MCV (80-94) fL MCH (28.0-34.0) pg MCHC (30.0-36.0) g/dL RDW (12.1-15.1) % Plt Count (130-400) 10^3/c mm MPV (7.4-10.4) fL Neut % (Auto) % Lymph % (Auto) % [place] % (Auto) % Eos % (Auto) % Baso % (Auto) % Neut # (Auto) (1.8-7.7) 10^3/u L Lymph # (Auto) (0.8-4.8) 10^3/u L [place] # (Auto) (0.2-0.9) 10^3/u L Eos # (Auto) (0.0-0.8) 10^3/u L Baso # (Auto) (0.0-0.1) 10^3/u L Nucleated RBC % (a uto) % Nucleated RBCs # /100WBC Sodium (136-145) mmol/L Potassium (3.5-5.1) mmol/L Chloride (98-107) mmol/L Carbon Dioxide (22-29) mmol/L Anion Gap (5-19) BUN (6-20) mg/dL Creatinine (0.7-1.2) mg/dL GFR Calculation (90-130) mL/min Glucose (65-115) mg/dL POC Glucose 81 (70-110) mg/dL Calculated Osmolal ity (285-295) mOsm/k g Calcium (8.5-10.5) mg/dL Total Bilirubin (0.15-1.2) mg/dL AST (0-40) U/L ALT (0-41) U/L Alkaline Phosphata se (40-130) IU/L Total Protein (6.6-8.7) g/dL Albumin (3.5-5.2) g/dL Globulin (1.3-4.6) g/dL Lipase (13-60) U/L Urine Color (Yellow) Urine Appearance (CLEAR) Urine pH (5-7) Ur Specific Gravit y (1.005-1.030) Urine Protein (Negative) Urine Glucose (UA) (Normal) Urine Ketones (Negative) Urine Blood (Negative) Urine Nitrate (Negative) Urine Bilirubin (Negative) Urine Urobilinogen (Negative) mg/dL Ur Leukocyte Miladys ase (Negative) Urine RBC (0-2) /hpf Urine WBC (0-5) /hpf Ur Squamous Epith Cells (0-5) /hpf Amorphous Sediment Urine Bacteria (NONE) /hpf Discharge Plan Discharge Patient Disposition: Home Clinical Impression: Benign essential HTN, Gout Condition: Stable Prescriptions: New Medrol (Wade) 4 mg tablets,dose pack See Rx Instructions .ROUTE .COMPLEX Qty: 21 RF: 0 indomethacin 50 mg capsule 50 mg PO TID Qty: 30 RF: 0 lisinopril 20 mg tablet 20 mg PO DAILY Qty: 30 RF: 0 amlodipine 5 mg tablet 5 mg PO DAILY Qty: 30 RF: 0 Colcrys 0.6 mg tablet 0.6 mg PO BID Qty: 14 RF: 0 No Action naproxen sodium [Aleve] 220 mg Tablet 440 mg PO PRN PRN (Reason: Pain) RF: 0 Discharge Orders: Discharge ED (Routine); Ordered 08/20/20 Ordered By: Juan Jose Garcia Discharge Diet: Usual diet Patient Instructions: Opioid Safety Activity Restrictions/Additional Instructions: Follow-up with your primary care doctor within the week. Coding Level of Care Code ED Perinatal Breastfeeding Assistant for Epi Fwibrahima Exam Comprehensive
[2020-08-20 12:03] LABS: Alanine Aminotransferase 36 U/L (0-41); Albumin Level 4.1 g/dL (3.5-5.2); Alkaline Phosphatase 79 IU/L (40-130); Anion Gap 11.9 (5-19); Aspartate Amino Transferase 40 U/L (0-40); Blood Urea Nitrogen 11 mg/dL (6-20); Carbon Dioxide 27 mmol/L (22-29); Chloride 100 mmol/L (98-107); Globulin 2.9 g/dL (1.3-4.6); Glomerular Filtration Rate 82.8 mL/min (90-130); Glucose 120 mg/dL (65-115); Lipase 21 U/L (13-60); Osmolality Calculated 281 mOsm/kg (285-295); Potassium 3.9 mmol/L (3.5-5.1); Sodium 135 mmol/L (136-145); Total Bilirubin 0.4 mg/dL (0.15-1.2)
[2020-08-20] MEDS: ondansetron 2 mg/ML SDV 2 mL 4 MG IVP (12:25)
[2020-08-20] MEDS: amlodipine 5 mg Tablet PO (12:25)
[2020-08-20] MEDS: morphine 4 mg/mL SDV 1 mL IVP (12:26)
[2020-08-20] MEDS: metoprolol tartrate 1 mg/1 mL SDV 5 mL 2.5 MG IV (12:26)
[2020-08-20] MEDS: hyDRALAzine 25 mg Tablet PO (12:57)
[2020-08-20 14:02] LABS: Add Urine Microscopic? YES; Bilirubin Urine Neg (Negative); Blood Urine Neg (Negative); Glucose Urine UA Norm (Normal); Ketones Urine Negative (Negative); Leukocyte Esterase Urine Negative (Negative); Nitrate Urine Negative (Negative); Protein Urine Trace (Negative); Specific Gravity, Urine 1.015 (1.005-1.030); Urine Appearance Clear (CLEAR); Urine Color Yellow (Yellow); Urobilinogen Urine 1 mg/dL (Negative); pH Urine 6.5 (5-7)
--- NOTE | 2020-08-20 14:25 | CT_ITS ---
WS: [id number] CT ABDOMEN AND PELVIS WITH CONTRAST HISTORY: Mid and lower abdominal pain. TECHNIQUE: Imaging performed of the abdomen and pelvis with IV contrast. Single phase imaging of the abdomen. Coronal and sagittal reformats are submitted. All CT scans at [facility] use at least one of these dose optimization techniques: automated exposure control; mA and/or kV adjustment per patient size (includes targeted exams where dose is matched to clinical indication); or iterativ e reconstruction. IV CONTRAST: Omnipaque 300; 95 mL IV. Oral contrast: No DLP: 2448.81 mGy.cm COMPARISON: 08/10/2018 Lower thorax: Benign granuloma at the RIGHT lung base. Mild enlargement of the heart. No hiatal herni a. Liver/biliary system: Mild hepatomegaly with diffuse hepatic steatosis. No mass or bile duct dilatati on. Gallbladder: Normal. No gallstones or wall thickening. No pericholecystic fluid. Pancreas: Normal. Spleen: Spleen is mildly enlarged measuring 15 cm in length. No mass. Adrenal glands: Normal. Right kidney: Normal. Left kidney: Normal size LEFT kidney. There is 2 hypodensities within the kidney. The largest in the upper pole measures 2.8 x 2.2 cm and was present on the prior study. These are probably complex cysts . No obstruction. Aorta: Normal. Lymphadenopathy: Small benign-appearing retroperitoneal and inguinal lymph nodes. Free fluid: None. GI tract: Normal appendix. No GI tract obstruction. No evidence for diverticulitis. Abdominal wall: Unremarkable abdominal wall. No hernia. Pelvis: Normal. Bones: Unremarkable. CT/CT abdomen pelvis w con* [id number] IMPRESSION: 1. No evidence for appendicitis. 2. Mild hepatosplenomegaly. Mild hepatic steatosis. 3. No ascites. 4. Negative gallbladder.
[2020-08-20] MEDS: iohexol 300 mg/mL 100 mL Btl IV (14:45)
[2020-08-20] MEDS: hyDRALAzine 20 mg/mL INJ 1 mL IVP (15:37)
[2020-08-20] MEDS: cloNIDine 0.1 mg Tablet PO (16:42)
[2020-08-20 16:54] LABS: Glucose Point of Care 81 mg/dL (70-110)
[2020-08-20] MEDS: metoprolol tartrate 1 mg/1 mL SDV 5 mL 5 MG IV (17:49)
[2020-08-20] MEDS: labetalol 5 mg/mL SDV 20mL 20 MG IVP (18:44)
== END 2020-08-20 19:13 | disposition home or self-care (01) ==
PROVIDERS: Nurse Practitioner Family; Emergency Provider Family Medicine
DX: M10.9 Gout, unspecified (principal); I10 Essential (primary) hypertension
CPT/HCPCS: 36416; 73080; 74177; 80053; 81001; 82962; 83690; 85025; 96374; 96375; 96376; 99284; J0360; J2270; J2405; J3490; Q9967

== ENCOUNTER 2020-12-13 15:19 | Emergency (ER) | payer MEDICAID, SELFPAY ==
[2020-12-13 15:28] VITALS: BP 240/114; PULSE 86; RESP 19; TEMP 37.3; O2SAT 94; BMI 57.6
--- NOTE | 2020-12-13 16:18 | XRR_ITS ---
PROCEDURE INFORMATION: Exam: XR Chest Exam date and time: 12/13/2020 4:18 PM Age: 40 years old Clinical indication: Other: Swelling; Additional info: Pedal edema TECHNIQUE: Imaging protocol: XR of the chest. Views: 1 view. COMPARISON: CR XR chest 1V portable [id number] 10/01/2019 10:55 AM FINDINGS: Lungs: Unremarkable. No consolidation. Pleural spaces: Unremarkable. No pleural effusion. No pneumothorax. Heart/Mediastinum: Unremarkable. No cardiomegaly. Bones/joints: Unremarkable. XR/XR chest 1V portable [id number] IMPRESSION: No acute findings.
[2020-12-13] MEDS: FUROsemide 10 mg/mL SDV 4mL 40 MG IVP (16:25)
[2020-12-13 16:29] LABS: Basophils % 0.3 %; Eosinophils # 0.1 10^3/uL (0.0-0.8); Eosinophils % 1.6 %; Hematocrit 40.6 % (42.0-52.0); Hemoglobin 13.8 g/dL (11.7-16.6); Lymphocytes % 27.6 %; Mean Corpuscular Hemoglobin 29.6 pg (28.0-34.0); Mean Corpuscular Volume 87.1 fL (80-94); Mean Platelet Volume 10.8 fL (7.4-10.4); Monocytes # 0.3 10^3/uL (0.2-0.9); Monocytes % 6.8 %; Neutrophils # 2.31 10^3/uL (1.8-7.7); Neutrophils % 63.2 %; Nucleated Red Blood Cells % 0 %; Platelet Count 147 10^3/cmm (130-400); Red Blood Count 4.66 10^6/uL (4.1-5.3); Red Cell Distribution Width 13.4 % (12.1-15.1); White Blood Count 3.7 10^3/uL (4.0-10.0)
[2020-12-13 16:53] LABS: Alanine Aminotransferase 27 U/L (0-41); Albumin Level 4.4 g/dL (3.5-5.2); Alkaline Phosphatase 77 IU/L (40-130); Aspartate Amino Transferase 33 U/L (0-40); Blood Urea Nitrogen 12 mg/dL (6-20); Calcium 8.9 mg/dL (8.5-10.5); Carbon Dioxide 26 mmol/L (22-29); Chloride 99 mmol/L (98-107); Globulin 2.2 g/dL (1.3-4.6); Glomerular Filtration Rate 124.3 mL/min (90-130); Glucose 125 mg/dL (65-115); NT Pro B Type Natriuretic Pept 22 pg/mL (0-125); Osmolality Calculated 281 mOsm/kg (285-295); Sodium 135 mmol/L (136-145); Total Bilirubin 0.4 mg/dL (0.15-1.2); Total Protein 6.6 g/dL (6.6-8.7)
--- NOTE | 2020-12-13 16:55 | W.ED.EXTPRO ---
HPI - Extremity Problem General: Chief complaint: Extremity Problem,Nontraumatic Stated complaint: BLE PAIN/SWELLING Time Seen by Provider: 12/13/20 15:34 Source: patient Mode of arrival: ambulatory Limitations: no limitations History of Present Illness: HPI Narrative: This 40 year old male with a history of chronic pedal edema, HTN, chronic back pain who presents to the emergency department with leg swelling that has progressively worsened over the last 3 to 4 days. He has been out of his Lasix for about 4 days now. He has noticed increased leg swelling with some blistering forming on his left lower leg. He denies any shortness of breath. Denies orthopnea. Denies any cough or chest pain. He is here for evaluation of the leg swelling. MD Complaint: extremity swelling Onset (ago): day(s) (3) Pain Consistency: constant Location: left, right and lower extremity Review of Systems General: Reports: 10 or more systems reviewed and unremarkable except in HPI and below PFSH ED PFSH: Medical History Cervical disc disorder with myelopathy of mid-cervical region Displacement of lumbar intervertebral disc Low back pain of over 3 months duration Lumbar disc disease Morbid obesity with BMI of 50.0-59.9, adult Neck pain of over 3 months duration Stenosis of cervical spine with myelopathy Surgical History No pertinent past surgical history Family History Mother SVT (supraventricular tachycardia) Arthritis Hypertension Grandfather Arthritis Dementia Diabetes Hypertension Grandmother Arthritis Dementia Diabetes Hypertension Social History Smoking and tobacco status: never smoked Alcohol intake: current Alcohol intake frequency: holidays/special occasions only Household members: spouse and children Marital status: Current occupational status: unemployed History of recent travel: No Physical Exam Const: COMMON NORMALS: no acute distress, average body habitus, patient oriented x3, no limitations, healthy appearing, alert and well nourished HENMT: COMMON NORMALS: normocephalic, atraumatic and moist oral mucous membranes HEAD & SCALP: normocephalic and atraumatic Neck/C-Spine: COMMON NORMALS: no meningeal signs and no JVD Resp: COMMON NORMALS: normal respiratory effort, No retractions, No use of accessory muscles, clear to auscultation bilaterally and percussion normal AUSCULTATION: clear to auscultation bilaterally PERCUSSION: percussion normal Cardio: COMMON NORMALS: no JVD, regular rate, regular rhythm, S1 normal heart sound present, S2 normal heart sound present, No gallops present (Cardio), No clicks present (Cardio), No murmurs present (Cardio), No rub (Cardio) and Peripheral pulses 2+ throughout RATE: regular rate RHYTHM: regular rhythm HEART SOUNDS: S1 normal heart sound present and S2 normal heart sound present PERIPHERAL PULSES: Peripheral pulses 2+ throughout GI: COMMON NORMALS: Normal to inspection, nondistended, normoactive bowel sounds present, Soft to palpation, non-tender, No hepatosplenomegaly present, no masses and no bruits PALPATION: Yes Soft to palpation and Yes No hepatosplenomegaly present Extremity: COMMON NORMALS: normal to inspection, full ROM, capillary refill normal and no calf tenderness GENERAL: Yes edema Neuro: COMMON NORMALS: patient oriented x3 SENSORIUM/ORIENTATION: Yes alert MENINGEAL SIGNS: Yes no meningeal signs Skin: COMMON NORMALS: no rashes or lesions noted, no wounds, turgor normal, no jaundice, no petechiae and no mottling GENERAL SKIN EXAM: no rashes or lesions noted and turgor normal Course Reevaluation(s): Reevaluation #1: Discussed his lab and imaging findings with him. BNP normal, CXR negative for acute findings. He does not appear to have CHF. Will refill his furosemide and discharge him home. He voiced understanding and all questions answered. Time: 18:17 Vital Signs: Vital signs: Vital Signs Temperature 99.1 F 12/13/20 15:28 Pulse Rate 70 12/13/20 19:30 Respiratory Rate 16 12/13/20 19:30 Blood Pressure 182/106 12/13/20 19:30 Pulse Oximetry 96 12/13/20 19:30 MDM - Extremity (Nontraumatic) MDM Narrative: Medical decision making narrative: 40 year old male with chronic edema of his legs. He ran out of his furosemide and his swelling worsened. He has no SOB and no significant symptoms of CHF. CXR negative. He is discharged home with a refill of furosemide and is to f/u with his PCP. Medical Records: Attestation: I reviewed the patient's medical records. Lab Data: Attestation: I reviewed the patient's lab results. Labs: Lab Results 12/13/20 12/13/20 Range/Units 15:50 15:50 WBC 3.7 L (4.0-10.0) 10^3/ uL RBC 4.66 (4.1-5.3) 10^6/u L Hgb 13.8 (11.7-16.6) g/dL Hct 40.6 L (42.0-52.0) % MCV 87.1 (80-94) fL MCH 29.6 (28.0-34.0) pg MCHC 34.0 (30.0-36.0) g/dL RDW 13.4 (12.1-15.1) % Plt Count 147 (130-400) 10^3/c mm MPV 10.8 H (7.4-10.4) fL Neut % (Auto) 63.2 % Lymph % (Auto) 27.6 % [place] % (Auto) 6.8 % Eos % (Auto) 1.6 % Baso % (Auto) 0.3 % Neut # (Auto) 2.31 (1.8-7.7) 10^3/u L Lymph # (Auto) 1.0 (0.8-4.8) 10^3/u L [place] # (Auto) 0.3 (0.2-0.9) 10^3/u L Eos # (Auto) 0.1 (0.0-0.8) 10^3/u L Baso # (Auto) 0.0 (0.0-0.1) 10^3/u L Nucleated RBC % (a uto) 0 % Nucleated RBCs # 0.0 /100WBC Sodium 135 L (136-145) mmol/L Potassium 4.0 (3.5-5.1) mmol/L Chloride 99 (98-107) mmol/L Carbon Dioxide 26 (22-29) mmol/L Anion Gap 14.0 (5-19) BUN 12 (6-20) mg/dL Creatinine 0.7 (0.7-1.2) mg/dL GFR Calculation 124.3 (90-130) mL/min Glucose 125 H (65-115) mg/dL Calculated Osmolal ity 281 L (285-295) mOsm/k g Calcium 8.9 (8.5-10.5) mg/dL Total Bilirubin 0.4 (0.15-1.2) mg/dL AST 33 (0-40) U/L ALT 27 (0-41) U/L Alkaline Phosphata se 77 (40-130) IU/L NT-Pro-B Natriuret Pep 22 (0-125) pg/mL Total Protein 6.6 (6.6-8.7) g/dL Albumin 4.4 (3.5-5.2) g/dL Globulin 2.2 (1.3-4.6) g/dL Imaging Data^: CXR: Attestation: I personally reviewed and interpreted this imaging study as follows: Radiologist's impression: [address] [id number] ReportSigned Patient: Pankaj Perez #: [id number]: 1980Acct#:[id number]/Sex: 40 / MADM Date: 12/13/20Loc: [facility]/Bed:Attending Dr: Ordering Provider/Ordering MD: Bret Kay MD, [facility] [place] of Service: 12/13/20 Procedure(s): XR chest 1V portable [id number] Accession Number(s): [id number] Report Number: [id number] PROCEDURE INFORMATION: Exam: XR Chest Exam date and time: 12/13/2020 4:18 PM Age: 40 years old Clinical indication: Other: Swelling; Additional info: Pedal edema TECHNIQUE: Imaging protocol: XR of the chest. Views: 1 view. COMPARISON: CR XR chest 1V portable [id number] 10/01/2019 10:55 AM FINDINGS: Lungs: Unremarkable. No consolidation. Pleural spaces: Unremarkable. No pleural effusion. No pneumothorax. Heart/Mediastinum: Unremarkable. No cardiomegaly. Bones/joints: Unremarkable. XR/XR chest 1V portable [id number] IMPRESSION: No acute findings. Dictated By:Montse Lomeli MDSigned By:Montse Lomeli MDSigned Date/Time:12/13/201736DD/ 35 Discharge Plan Discharge Patient Disposition: Home Clinical Impression: Pedal edema Condition: Stable Prescriptions: New furosemide 20 mg tablet 20 mg PO DAILY Qty: 7 RF: 0 Continued furosemide 40 mg Tablet 40 mg PO DAILY RF: 0 potassium chloride 10 mEq Capsule, Extended Release 10 meq PO DAILY RF: 0 carvedilol 6.25 mg Tablet 6.25 mg PO DAILY RF: 0 allopurinol 100 mg Tablet 100 mg PO DAILY RF: 0 nabumetone 500 mg Tablet 500 mg PO DAILY RF: 0 Tylenol 325 mg Tablet 325 - 650 mg PO QID PRN (Reason: PAIN/FEVER) RF: 0 Discharge Orders: Discharge ED (Routine); Ordered 12/13/20 Ordered By: Bret Kay Discharge Diet: Usual diet Discharge Activity: Increase activity as tolerated Patient Instructions: Leg Edema (ED) Activity Restrictions/Additional Instructions: Return for any new or worsening symptoms. Follow-up with your primary care provider within 3 days. Continue your home medications. Coding Level of Care Code ED Rn [facility] for [facility]g Fwd Exam Comprehensive
[2020-12-13 18:15] VITALS: BP 199/140; PULSE 80; RESP 20; O2SAT 94
[2020-12-13 18:30] VITALS: BP 202/140; PULSE 76; RESP 18; O2SAT 94
[2020-12-13 18:32] VITALS: BP 199/140
[2020-12-13] MEDS: cloNIDine 0.1 mg Tablet PO (18:32)
[2020-12-13 19:00] VITALS: BP 198/123; PULSE 775; RESP 18; O2SAT 94
[2020-12-13 19:30] VITALS: BP 182/106; PULSE 70; RESP 16; O2SAT 96
[2020-12-13] MEDS: nitroglycerin 0.4 mg sublingual Tablet SUBLINGUAL (19:31)
== END 2020-12-13 19:46 | disposition home or self-care (01) ==
PROVIDERS: Emergency Provider Family Medicine
DX: R60.0 Localized edema (principal); I10 Essential (primary) hypertension; E66.01 Morbid (severe) obesity due to excess calories; Z68.43 Body mass index [BMI] 50.0-59.9, adult
CPT/HCPCS: 71045; 80053; 83880; 85025; 96374; 99284; J1940

== ENCOUNTER 2020-12-27 16:24 | Emergency (ER) | payer MEDICAID, SELFPAY ==
[2020-12-27 16:50] VITALS: PULSE 82; RESP 17; TEMP 37.3; O2SAT 96; BMI 57.6
--- NOTE | 2020-12-27 17:15 | ED_ITS ---
HPI - Extremity Injury (Lower) General: Chief Complaint: Extremity Injury, Lower Stated Complaint: R. LEG PAIN/TROUBLE WALKING Time Seen by Provider: 12/27/20 17:10 History of Present Illness: HPI Narrative: Patient is a 40-year-old male comes to the ED with right knee pain. Patient says a about a week ago he went fishing and was out walking denies any fall, or injury. He says he was up walking further than he usually walks and thinks he might have overused knee. He has been using crutches at home to help with his pain and ambulation. Patient takes Motrin at home for pain. Patient denies any other symptoms at this time. Review of Systems Const: Denies: fever(s), chills or fatigue Eyes: Denies: change in vision or eye discomfort ENMT: Denies: throat pain, odynophagia, nasal discharge or nasal congestion Card: Denies: chest pain, palpitations, edema, swelling of feet/ankles, dyspnea on exertion or orthopnea Resp: Denies: dyspnea, productive cough or non-productive cough GI: Denies: abdominal pain, nausea, vomiting, diarrhea, constipation or hematochezia : Denies: flank pain, difficulty urinating, dysuria or hematuria Musc: Reports: joint pain (right knee pain); Denies: neck pain, back pain or extremity swelling Skin/Breast: Denies: rash or new lesions Neuro: Denies: headache(s), numbness in extremities or weakness in extremities PFS ED PFSH: Medical History Cervical disc disorder with myelopathy of mid-cervical region Displacement of lumbar intervertebral disc Low back pain of over 3 months duration Lumbar disc disease Morbid obesity with BMI of 50.0-59.9, adult Neck pain of over 3 months duration Stenosis of cervical spine with myelopathy Surgical History No pertinent past surgical history Family History Mother SVT (supraventricular tachycardia) Arthritis Hypertension Grandfather Arthritis Dementia Diabetes Hypertension Grandmother Arthritis Dementia Diabetes Hypertension Social History Smoking and tobacco status: never smoked Alcohol intake: current Alcohol intake frequency: holidays/special occasions only Household members: spouse and children Marital status: Current occupational status: unemployed History of recent travel: No Physical Exam Const: COMMON NORMALS: no acute distress, patient oriented x3 and alert GENERAL APPEARANCE: cooperative and comfortable NUTRITIONAL APPEARANCE: obese HENMT: COMMON NORMALS: normocephalic HEAD & SCALP: normocephalic MOUTH: Normal oral and palatal mucosa present THROAT: posterior oropharynx normal and uvula midline Neck/C-Spine: COMMON NORMALS: supple GENERAL: Yes normal visual inspection Resp: COMMON NORMALS: normal respiratory effort, No retractions, No use of accessory muscles and clear to auscultation bilaterally AUSCULTATION: clear to auscultation bilaterally Cardio: COMMON NORMALS: regular rate, regular rhythm, S1 normal heart sound present, S2 normal heart sound present, No gallops present (Cardio), No clicks present (Cardio), No murmurs present (Cardio) and Peripheral pulses 2+ throughout RATE: regular rate RHYTHM: regular rhythm HEART SOUNDS: S1 normal heart sound present and S2 normal heart sound present PERIPHERAL PULSES: Peripheral pulses 2+ throughout GI: COMMON NORMALS: Normal to inspection, nondistended, normoactive bowel sounds present, Soft to palpation, non-tender and no masses PALPATION: Yes Soft to palpation : COMMON NORMALS: Yes no CVA tenderness BLADDER/KIDNEY EXAM: Yes no CVA tenderness Back/Pelvis: COMMON NORMALS: no CVA tenderness Extremity: GENERAL: Yes normal exam except as noted, Yes calf tenderness (Right calf) and Yes edema (Bilateral 2+ pitting edema) RIGHT LOWER EXTREMITY: Yes knee joint Right knee: Yes inspection (No visible deformity seen or ecchymosis noted.), Yes palpation (Tenderness to anterior aspect of knee), Yes ROM (Limited due to pain) and Yes neurovascular exam (Intact) Neuro: COMMON NORMALS: patient oriented x3 and moves all extremities SENSORIUM/ORIENTATION: Yes alert Skin: GENERAL SKIN EXAM: dry skin Course Vital Signs: Vital signs: Vital Signs Temperature 99.2 F 12/27/20 16:50 Pulse Rate 80 12/27/20 19:34 Respiratory Rate 18 12/27/20 19:34 Blood Pressure 189/116 12/27/20 19:34 Pulse Oximetry 95 12/27/20 19:34 MDM - Extremity Injury (Lower) MDM Narrative: Medical decision making narrative: Patient is a 40-year-old male comes to the ED with right knee pain. Symptoms started approximately 1 week ago after he was fishing and walking around. Patient is obese with a BMI of 57. Exam shows obese patient in no acute distress or pain. He does have some right calf tenderness along with tenderness to the anterior aspect of his knee. Bilateral 2+ pitting edema. Neurovascular tact. X-ray right knee shows no acute fractures or findings. Also venous duplex of right lower extremity showed no DVTs or blood clots. Patient diagnosed with a right knee sprain and discharged home. He was told to take [id number] ibuprofen or Tylenol for pain. Rest ice and elevate right lower extremity. Use crutches for the next couple days as needed. Follow-up with PCP in 7 to 10 days reevaluation. Return to ED precautions given. Patient understood and agree with plan. Imaging Data^: Xray Ortho: Attestation: I personally reviewed and interpreted this imaging study as follows: My impression: Right knee x-ray?no acute fractures or findings. US Vascular: Attestation: I personally reviewed and interpreted this imaging study as follows: Radiologist's impression: Ultrasound venous duplex of right lower extremity?prelim report?no DVTs or blood clots seen. Discharge Plan Discharge Patient Disposition: Home Clinical Impression: Right knee sprain Qualifiers: Encounter type: initial encounter Involved ligament of knee: unspecified ligament Qualified Code(s): S83.91XA - Sprain of unspecified site of right knee, initial encounter Condition: Stable Prescriptions: No Action furosemide 40 mg Tablet 40 mg PO DAILY RF: 0 potassium chloride 10 mEq Capsule, Extended Release 10 meq PO DAILY RF: 0 carvedilol 6.25 mg Tablet 6.25 mg PO DAILY RF: 0 allopurinol 100 mg Tablet 100 mg PO DAILY RF: 0 nabumetone 500 mg Tablet 500 mg PO DAILY RF: 0 Tylenol 325 mg Tablet 325 - 650 mg PO QID PRN (Reason: PAIN/FEVER) RF: 0 furosemide 20 mg tablet 20 mg PO DAILY Qty: 7 RF: 0 Discharge Orders: Discharge ED (Routine); Ordered 12/27/20 Ordered By: Afshin Wu Discharge Diet: Regular Discharge Activity: Increase activity as tolerated and Use walker/crutches as instructed Patient Instructions: Knee Sprain (ED), Knee Pain (ED) Activity Restrictions/Additional Instructions: Follow-up with medical provider as directed in 7-10 days. Rest, ice and elevate right knee. Use crutches and limit weightbearing for the next couple days to allow for healing. return to the ER or your medical provider if condition worsens. Please read and understand discharge instructions. Thank you for choosing [facility] for your healthcare needs today. Please realize this is an emergency room and that we are providing you with a medical screening exam and this may not be complete and all inclusive of all the testing and or work up that you may need to determine your ailment or severity of your illness. It is very important that you follow up as instructed or that you return to the Emergency Department should you have concerns or if your condition changes or worsens in any way. Coding Level of Care Code ED Fish Hatchery Specialist for Epi Hassan Exam Comprehensive
[2020-12-27 17:19] VITALS: BP 219/124; PULSE 82; RESP 18; O2SAT 95
--- NOTE | 2020-12-27 17:30 | XRR_ITS ---
PROCEDURE INFORMATION: Exam: XR Right Knee Exam date and time: 12/27/2020 5:30 PM Age: 40 years old Clinical indication: Pain; Knee; Right; Additional info: Right knee pain and swelling TECHNIQUE: Imaging protocol: XR Right knee. Views: 3 views. COMPARISON: CR XR foot RT min 3V* 52601 12/06/2019 7:23 PM FINDINGS: There is a joint effusion. There is no evidence of fracture. The joint spaces are well maintained. There is no acute bony destruction. XR/XR knee RT 3V* [id number] IMPRESSION: 1. Joint effusion. 2. No fracture or bony destruction.
[2020-12-27 17:36] VITALS: RESP 16
[2020-12-27] MEDS: morphine 4 mg/mL SDV 1 mL IM (17:36)
[2020-12-27 18:08] VITALS: PULSE 84; RESP 18; O2SAT 97
--- NOTE | 2020-12-27 18:24 | PC.NURSE ---
Patient back to room from radiology. RR even and nonlabored. Pain continues to decrease following Morphine.
--- NOTE | 2020-12-27 18:29 | USR_ITS ---
PROCEDURE INFORMATION: Exam: US Duplex Right Lower Extremity Veins, Limited Exam date and time: 12/27/2020 6:29 PM Age: 40 years old Clinical indication: Pain; Leg, upper; Right; Additional info: Right calf tenderness TECHNIQUE: Imaging protocol: Real-time Duplex ultrasound of the Right Lower Extremity with 2-D kohler scale, color Doppler flow and spectral waveform analysis with image documentation. Limited exam was focused on the right lower extremity veins. COMPARISON: CR (LOW EX, ) 12/27/2020 6:06 PM FINDINGS: Real-time grayscale, Doppler, color Doppler and duplex imaging of the right lower extremity was performed. Spectral analysis was performed. There is normal flow and compressibility of the common femoral, superficial femoral and popliteal veins. There is normal augmentation. There is no intraluminal thrombus. The visualized calf veins were unremarkable. US/[place] [address] IMPRESSION: No evidence for deep venous thrombosis.
[2020-12-27 19:34] VITALS: BP 189/116; PULSE 80; RESP 18; O2SAT 95
== END 2020-12-27 19:34 | disposition home or self-care (01) ==
PROVIDERS: Emergency Provider Physician Assistant
DX: S83.91XA Sprain of unspecified site of right knee, initial encounter (principal); X50.9XXA Other and unspecified overexertion or strenuous movements or postures, initial encounter
CPT/HCPCS: 73562; 93971; 96372; 99283; J2270

== ENCOUNTER → 2021-01-29 16:01 | Outpatient (BNVA) | payer OTHER, SELFPAY | PROVIDERS: Visit Provider Nurse Practitioner Family | DX: Z20.822 Contact with and (suspected) exposure to COVID-19 (principal) | CPT/HCPCS: 87635 ==

== ENCOUNTER 2021-05-05 07:52 | Emergency (ER) | payer MEDICAID, SELFPAY ==
[2021-05-05 08:02] VITALS: BP 163/96; PULSE 84; RESP 16; TEMP 37.3; O2SAT 96; BMI 53.1
--- NOTE | 2021-05-05 08:11 | XR_ITS ---
WS: [id number] XR knee RT 3V* [id number] REASON FOR EXAM: pain and swelling FINDINGS: No fracture or dislocation. No focal bone lesion. The medial, lateral, and patellofemoral joint spaces are relatively well-preserved. No soft tissue abnormality Examination is unchanged compared to 12/27/2020. XR/XR knee RT 3V* [id number] IMPRESSION: No acute abnormality.
--- NOTE | 2021-05-05 08:11 | XR_ITS ---
WS: [id number] XR ankle RT min 3V* [id number] REASON FOR EXAM: pain and swelling. tender over lat malleolus FINDINGS: No fracture or dislocation. Ankle mortise is relatively preserved. Vascular calcifications otherwise, no significant soft tissue abnormality. XR/XR ankle RT min 3V* [id number] IMPRESSION: No acute abnormality.
--- NOTE | 2021-05-05 08:11 | USCV_ITS ---
Pankaj Perez Age: 40 Gender: M : 1980 Exam Date: 05/05/2021 08:34 Ordering Phys: Afshin Wu Technologist: Maritza Lindo [place] [facility] [place] Indication: RLE PAIN AND SWELLING X5DAYS HISTORY: Lower extremity pain. PROCEDURES: Venous duplex imaging was performed in only the right lower extremity. The following venous structures were evaluated: common femoral vein, profunda vein, proximal portion of the greater saphenous vein, superficial femoral vein, and the popliteal vein. In addition, the posterior tibial and peroneal trunk were evaluated. FINDINGS: TDS. Normal 2-D Doppler and augmentation and compressibility throughout the lower extremity venous structures. Additional imaging through the proximal calf veins also reveals no thrombus. Limited evaluation of the greater saphenous vein is patent with no thrombus.. CONCLUSIONS No evidence of right lower extremity DVT. Henrik Sher MD (Electronically Signed) Final Date: 05 May 2021 09:57 S
--- NOTE | 2021-05-05 08:13 | ED_ITS ---
HPI - Extremity Problem General: Chief complaint: Extremity Problem,Nontraumatic Stated complaint: RLE PAIN/SWELLING;NO KNOWN INJURY Time Seen by Provider: 05/05/21 08:00 History of Present Illness: HPI Narrative: Patient is a 40-year-old male who comes to the ED with right leg pain and swelling. Symptoms started approximately 3 days ago. He rates his pain currently 9 out of 10. Pain is located in his right knee, right ankle. Denies any injury or trauma to cause pain or swelling. He also reports some muscle cramping in his right lower leg as well. He states that he has been a little more active than usual over the past couple weeks. Patient says he has had pain in his right knee like this before and in the past they had to drain some fluid off his knee to help with symptoms. Denies any chest pain, shortness of breath or hemoptysis. No history of DVTs. Associated symptoms: Deny chest pain, fever(s) or rash Context: history of gout Review of Systems Const: Denies: fever(s), chills or fatigue Eyes: Denies: change in vision or eye discomfort ENMT: Denies: throat pain, odynophagia, nasal discharge or nasal congestion Card: Denies: chest pain, palpitations, edema, swelling of feet/ankles, dyspnea on exertion or orthopnea Resp: Denies: dyspnea, productive cough or non-productive cough GI: Denies: abdominal pain, nausea, vomiting, diarrhea, constipation or hematochezia : Denies: flank pain, difficulty urinating, dysuria or hematuria Musc: Reports: extremity pain (right knee and ankle), extremity swelling (right leg) and muscle cramps (right lower leg); Denies: neck pain or back pain Skin/Breast: Denies: rash or new lesions Neuro: Denies: headache(s), numbness in extremities or weakness in extremities PFS ED PFSH: Medical History Cervical disc disorder with myelopathy of mid-cervical region Displacement of lumbar intervertebral disc Low back pain of over 3 months duration Lumbar disc disease Morbid obesity with BMI of 50.0-59.9, adult Neck pain of over 3 months duration Stenosis of cervical spine with myelopathy Surgical History No pertinent past surgical history Family History Mother SVT (supraventricular tachycardia) Arthritis Hypertension Grandfather Arthritis Dementia Diabetes Hypertension Grandmother Arthritis Dementia Diabetes Hypertension Social History Smoking and tobacco status: never smoked Alcohol intake: current Alcohol intake frequency: holidays/special occasions only Household members: spouse and children Marital status: Current occupational status: unemployed History of recent travel: No Physical Exam Const: COMMON NORMALS: no acute distress, patient oriented x3 and alert GENERAL APPEARANCE: cooperative and comfortable NUTRITIONAL APPEARANCE: obese morbidly obese HENMT: COMMON NORMALS: normocephalic HEAD & SCALP: normocephalic MOUTH: Normal oral and palatal mucosa present THROAT: posterior oropharynx normal and uvula midline Neck/C-Spine: COMMON NORMALS: supple GENERAL: Yes normal visual inspection Resp: COMMON NORMALS: normal respiratory effort, No retractions, No use of accessory muscles and clear to auscultation bilaterally AUSCULTATION: clear to auscultation bilaterally Cardio: COMMON NORMALS: regular rate, regular rhythm, S1 normal heart sound present, S2 normal heart sound present, No gallops present (Cardio), No clicks present (Cardio), No murmurs present (Cardio) and Peripheral pulses 2+ throughout RATE: regular rate RHYTHM: regular rhythm HEART SOUNDS: S1 normal heart sound present and S2 normal heart sound present PERIPHERAL PULSES: Peripheral pulses 2+ throughout GI: COMMON NORMALS: Normal to inspection, nondistended, normoactive bowel sounds present, Soft to palpation, non-tender and no masses INSPECTION: Yes central obesity PALPATION: Yes Soft to palpation : COMMON NORMALS: Yes no CVA tenderness BLADDER/KIDNEY EXAM: Yes no CVA tenderness Back/Pelvis: COMMON NORMALS: no CVA tenderness Extremity: NARRATIVE EXTREMITY EXAM: No erythema, warmth or any signs of cellulitis in right lower leg. GENERAL: Yes normal exam except as noted, Yes calf tenderness (right leg) and Yes edema (1+ pitting edema to lower extremities bilaterally.) Neuro: COMMON NORMALS: patient oriented x3 and moves all extremities SENSORIUM/ORIENTATION: Yes alert Skin: NARRATIVE SKIN EXAM: No erythema, warmth or any signs of cellulitis in right lower leg. GENERAL SKIN EXAM: dry skin Course Vital Signs: Vital signs: Vital Signs Temperature 99.1 F 05/05/21 08:18 Pulse Rate 78 05/05/21 09:55 Respiratory Rate 20 H 05/05/21 09:55 Blood Pressure 162/95 05/05/21 09:55 Pulse Oximetry 94 05/05/21 09:55 MDM - Extremity (Nontraumatic) MDM Narrative: Medical decision making narrative: Patient is a 40-year-old male comes to the ED with nontraumatic right knee and ankle pain with some right lower extremity swelling. Patient is morbidly obese and admits to being more active over the last couple weeks. He has had right knee pain like this before in the past and he had to get fluid drained from his knee. Vitals stable. Patient has some right calf tenderness along with pain to palpation of right knee. He also has some palpable right lateral malleolus tenderness as well. 1+ pitting edema to lower extremities bilaterally. X-ray of right knee and right ankle showed no acute fractures or findings. Ultrasound venous duplex of right lower extremity shows no DVT or blood clots seen. Patient diagnosed with right knee pain and discharged home with crutches. I placed order with case management for patient to be referred to orthopedic for further evaluation of right knee pain. Return ED precautions given. Patient and agree with plan. Imaging Data^: Other Xray: Attestation: I personally reviewed and interpreted this imaging study as follows: Radiologist's impression: [address] [address] XRay Report Signed Patient: Pankaj Perez Unit #: [id number] : 1980 Age/Sex: 40 / M ADM Date: 05/05/21 Loc: ER Room/Bed: Attending Dr: Ordering Provider/Ordering MD: Afshin Wu Date of Service: 05/05/21 Procedure(s): XR ankle RT min 3V* 09845 Accession Number(s): [id number] Report Number: [id number] WS: [id number] XR ankle RT min 3V* [id number] REASON FOR EXAM: pain and swelling. tender over lat malleolus FINDINGS: No fracture or dislocation. Ankle mortise is relatively preserved. Vascular calcifications otherwise, no significant soft tissue abnormality. XR/XR ankle RT min 3V* [id number] IMPRESSION: No acute abnormality. Dictated By: Sp Billy Jr, MD Signed By: Sp Billy Jr, MD Signed Date/Time: 05/05/21899 DD/ [address] [address] XRay Report Signed Patient: Pankaj Perez Unit #: [id number] : 1980 Age/Sex: 40 / M ADM Date: 05/05/21 Loc: ER Room/Bed: Attending Dr: Ordering Provider/Ordering MD: Afshin Wu Date of Service: 05/05/21 Procedure(s): XR knee RT 3V* 10632 Accession Number(s): [id number] Report Number: [id number] WS: [id number] XR knee RT 3V* [id number] REASON FOR EXAM: pain and swelling FINDINGS: No fracture or dislocation. No focal bone lesion. The medial, lateral, and patellofemoral joint spaces are relatively well- preserved. No soft tissue abnormality Examination is unchanged compared to 12/27/2020. XR/XR knee RT 3V* 09591 IMPRESSION: No acute abnormality. Dictated By: Sp Billy Jr, MD Signed By: Sp Billy Jr, MD Signed Date/Time: 05/05/21901 DD/ 0900 Vascular: Attestation: I personally reviewed and interpreted this imaging study as follows: Radiologist's impression: Right lower extremity venous duplex ultrasound?no DVT or blood clots seen. Discharge Plan Discharge Patient Disposition: Home Clinical Impression: Knee pain, right Qualifiers: Chronicity: acute Qualified Code(s): M25.561 - Pain in right knee Condition: Stable Prescriptions: New cyclobenzaprine 10 mg tablet 10 mg PO BID PRN (Reason: muscle spasm) Qty: 20 RF: 0 No Action furosemide 40 mg Tablet 40 mg PO DAILY RF: 0 potassium chloride 10 mEq Capsule, Extended Release 10 meq PO DAILY RF: 0 carvedilol 6.25 mg Tablet 6.25 mg PO DAILY RF: 0 allopurinol 100 mg Tablet 100 mg PO DAILY RF: 0 nabumetone 500 mg Tablet 500 mg PO DAILY RF: 0 Tylenol 325 mg Tablet 325 - 650 mg PO QID PRN (Reason: PAIN/FEVER) RF: 0 furosemide 20 mg tablet 20 mg PO DAILY Qty: 7 RF: 0 Discharge Orders: Discharge ED (Routine); Ordered 05/05/21 Ordered By: Afshin Wu Discharge Diet: Regular Discharge Activity: Use walker/crutches as instructed Patient Instructions: Knee Pain (ED), Opioid Safety Activity Restrictions/Additional Instructions: Follow-up with medical provider as directed. candles pourer regarding you next several days set up appoint with orthopedic for further evaluation right knee pain and swelling. Take medications as prescribed. Cyclobenzaprine is a muscle relaxer can cause some drowsiness so take at night before going to bed. You can also take [id number] ibuprofen or Tylenol as well to help with pain. Rest, ice and elevate right knee. Use crutches to help with ambulation. Return to the ER or your medical provider if condition worsens. Please read and understand discharge instructions. Thank you for choosing [facility] for your healthcare needs today. Please realize this is an emergency room and that we are providing you with a medical screening exam and this may not be complete and all inclusive of all the testing and or work up that you may need to determine your ailment or severity of your illness. It is very important that you follow up as instructed or that you return to the Emergency Department should you have concerns or if your condition changes or worsens in any way. Coding Level of Care Code ED Waterproofer for Epi Hassan Exam Comprehensive
[2021-05-05 08:18] VITALS: BP 163/96; PULSE 84; RESP 16; TEMP 37.3; O2SAT 96
[2021-05-05] MEDS: HYDROcodone-acetaminophen 7.5-325 mg Tablet 1 TAB PO (08:38)
[2021-05-05] MEDS: orphenadrine 30 mg/mL Inj 2 mL 60 MG IM (08:39)
[2021-05-05 09:39] VITALS: RESP 20
[2021-05-05] MEDS: morphine 4 mg/mL SDV 1 mL IM (09:39)
[2021-05-05 09:48] VITALS: BP 123/86; PULSE 79; RESP 16; O2SAT 99
[2021-05-05 09:55] VITALS: BP 162/95; PULSE 78; RESP 20; O2SAT 94
--- NOTE | 2021-05-06 10:25 | DCPLANNER ---
manager community outreach had message to schedule a follow up appointment for patient with ortho. manager community outreach called the ortho clinic spoke with Tonja, gave clinic patients information. manager community outreach was told that patients information would be printed and reviewed. Clinic will call patient with appointment information.
--- NOTE | 2021-05-14 08:07 | DCPLANNER ---
Patient has a follow up appointment scheduled for Wednesday, May 19, 2021 at 2:[address] Melendez at [facility]. Clinic will call patient with appointment information.
--- NOTE | 2021-05-20 06:21 | DCPLANNER ---
Patient had a follow up appointment scheduled for Monday, May 19, 2021 with ortho - patient did attend appointment.
== END 2021-05-05 09:47 | disposition home or self-care (01) ==
PROVIDERS: Emergency Provider Physician Assistant
DX: M25.561 Pain in right knee (principal)
CPT/HCPCS: 73562; 73610; 93971; 96372; 99283; E0114; J2270; J2360

== ENCOUNTER 2021-05-08 12:55 | Emergency (ER) | payer MEDICAID, SELFPAY ==
[2021-05-08 13:01] VITALS: BP 231/120; PULSE 88; RESP 16; TEMP 36.4; O2SAT 98
--- NOTE | 2021-05-08 13:14 | ED_ITS ---
HPI - Fall General: Chief Complaint: Fall Stated Complaint: KNEE PAIN Time Seen by Provider: 05/08/21 13:14 Source: patient Mode of arrival: wheelchair Limitations: no limitations History of Present Illness: HPI Narrative: Patient is a 40-year-old male who presents to ED today for evaluation following a slip and fall. Patient was here in the ED a few days ago secondary to right knee pain which she has chronically struggled with. Provider performed x-rays as well as a right lower extremity venous ultrasound which was negative for DVT. He was placed on crutches and given orthopedic follow-up. Patient states he was using the crutches [place] when he accidentally slipped and fell and states his right lower extremity got caught underneath me . He is complaining of knee pain, lower leg pain, and foot/ankle pain. He also struck his right eyebrow on his significant others wheelchair that she was using next to him. No LOC. He does complain of a headache. Patient has had multiple evaluations for his right knee pain previously. He states at one point his PCP aspirated the joint as they were concerned for gout but states fluid came back normal. Associated symptoms-after fall: Reports headache(s); Denies abdominal pain, chest pain or neck pain Review of Systems Const: Denies: fever(s), chills, body aches, fatigue or malaise Card: Denies: chest pain Resp: Denies: dyspnea GI: Denies: abdominal pain Musc: Reports: extremity pain (R LE), extremity swelling, joint pain (R knee, ankle, foot) and joint swelling; Denies: neck pain, back pain, joint redness or joint warmth Skin/Breast: Reports: other (abrasion/laceration R eyebrow) Neuro: Reports: headache(s); Denies: numbness in extremities, weakness in extremities or sensory changes PFS ED PFSH: Medical History Cervical disc disorder with myelopathy of mid-cervical region Displacement of lumbar intervertebral disc Low back pain of over 3 months duration Lumbar disc disease Morbid obesity with BMI of 50.0-59.9, adult Neck pain of over 3 months duration Stenosis of cervical spine with myelopathy Surgical History No pertinent past surgical history Family History Mother SVT (supraventricular tachycardia) Arthritis Hypertension Grandfather Arthritis Dementia Diabetes Hypertension Grandmother Arthritis Dementia Diabetes Hypertension Social History Smoking and tobacco status: never smoked Alcohol intake: current Alcohol intake frequency: holidays/special occasions only Household members: spouse and children Marital status: Current occupational status: unemployed History of recent travel: No Physical Exam Const: COMMON NORMALS: no acute distress, no limitations and alert GENERAL APPEARANCE: cooperative NUTRITIONAL APPEARANCE: obese morbidly obese (BMI > 54) ORIENTATION/CONSCIOUSNESS: Yes awake, Yes oriented to person, Yes oriented to place and Yes oriented to time HENMT: COMMON NORMALS: normocephalic and atraumatic HEAD & SCALP: normal to inspection, normocephalic and atraumatic HEAD IMAGES: 1. small 1cm abrasion to R eyebrow; nothing repairable at this time Neck/C-Spine: COMMON NORMALS: full ROM CERVICAL SPINE: No Cervical spine tenderness and No Paracervical muscle tenderness Back/Pelvis: COMMON NORMALS: thoracic and lumbar spine normal to inspection, no thoracic nor lumbar tenderness and thoraco-lumbar ROM normal Extremity: OTHER: pt is morbidly obese making palpation of bony anatomy and examination for joint laxity difficuly; pt with bilateral LE edema R>L; he has tenderness from R knee distally without preference for one particular area; no redness/warmth/streaking/cellulitic changes; distal pulses are intact and normally bilaterally; normal cap refill; sensory intact Neuro: COMMON NORMALS: moves all extremities, no focal motor deficits and no sensory deficits noted SENSORIUM/ORIENTATION: Yes alert, Yes oriented to person, Yes oriented to place and Yes oriented to time GAIT: Yes Unable to assess gait Skin: COMMON NORMALS: no rashes or lesions noted GENERAL SKIN EXAM: no rashes or lesions noted Course Vital Signs: Vital signs: Vital Signs Temperature 99.1 F 05/08/21 14:34 Pulse Rate 86 05/08/21 14:34 Respiratory Rate 18 05/08/21 14:34 Blood Pressure 232/131 05/08/21 14:34 Pulse Oximetry 97 05/08/21 14:34 MDM - Fall MDM Narrative: Medical decision making narrative: XRs of R LE negative. CT head negative. CM referral placed on last visit. Recommend continue using his crutches as needed and following up with orthopedics. Imaging Data^: CT Head: Radiologist's impression: [facility] [address] [place] [address] CT Scan Report Signed Patient: Pankaj Perez Unit #: [id number] : 1980 Age/Sex: 40 / M ADM Date: 05/08/21 Loc: ER Room/Bed: Attending Dr: Ordering Provider/Ordering MD: Lorna Morales Date of Service: 05/08/21 Procedure(s): CT head wo con* [id number] Accession Number(s): [id number] Report Number: [id number] PROCEDURE INFORMATION: Exam: CT Head Without Contrast Exam date and time: 05/08/2021 1:18 PM Age: 40 years old Clinical indication: Injury or trauma; Fall; Blunt trauma (contusions or hematomas); Patient HX: PT fell striking R periorbital area on chair. Has laceration TECHNIQUE: Imaging protocol: Computed tomography of the head without contrast. Radiation optimization: All CT scans at this facility use at least one of these dose optimization techniques: automated exposure control; mA and/or kV adjustment per patient size (includes targeted exams where dose is matched to clinical indication); or iterative reconstruction. COMPARISON: CT head wo con* [id number] 06/14/2019 12:00 PM RADIATION DOSE METRICS: Total DLP (mGy-cm): 1102.02 FINDINGS: Brain: Normal. No hemorrhage. Unremarkable white matter. No mass effect. Cerebral ventricles: No ventriculomegaly. Paranasal sinuses: Visualized sinuses are unremarkable. No fluid levels. Mastoid air cells: Visualized mastoid air cells are well aerated. Bones/joints: Unremarkable. No acute fracture. Soft tissues: Unremarkable. CT/CT head wo con* [id number] IMPRESSION: No acute intracranial abnormality. Dictated By: Rafael Burrell MD Signed By: Rafael Burrell MD Signed Date/Time: 05/08/21 1519 DD/ 1318 XR R tib/fib: Radiologist's impression: [facility] [place], [place] [address]RSus ReportSigned Patient: Pankaj Perez #: [id number]: 1980Acct#:[id number]/Sex: 40 / MADM Date: 05/08/21Loc: ERRoom/Bed:Attending Dr: Ordering Provider/Ordering MD: Lorna Morales Date of Service: 05/08/21 Procedure(s): XR tibia fibula RT 2V 16138 Accession Number(s): [id number] Report Number: [id number] PROCEDURE INFORMATION: Exam: XR Right Tibia and Fibula Exam date and time: 05/08/2021 1:15 PM Age: 40 years old Clinical indication: Pain; Ankle and foot and knee and lower leg; Right; Additional info: Pain/fall TECHNIQUE: Imaging protocol: XR Right tibia and fibula. Views: 2 views. COMPARISON: No relevant prior studies available. FINDINGS: Bones/joints: No fracture or dislocation. Soft tissues: Mild subcutaneous edema present in the right leg. Vasculature: Several tiny phleboliths are seen in the anterior leg subcutaneous tissues. XR/XR tibia fibula RT 2V [id number] IMPRESSION: No fracture or dislocation. Dictated By:Rafael Burrell MDSigned By:Rafael Burrell MDSigned Date /Time:05/08/21 1537DD/ 1315 XR R knee: My impression: NAD; no changes when compared to previous films R ankle: My impression: effusion; no fracture noted; no changes (apart from current ef fusion) when compared to previous films XR R foot: My impression: NAD; no changes when compared to previous films Discharge Plan Discharge Patient Disposition: Home Clinical Impression: Fall from slipping Qualifiers: Encounter type: initial encounter Qualified Code(s): W01.0XXA - Fall on same level from slipping, tripping and stumbling without subsequent striking against object, initial encounter Strain of knee and leg, right Qualifiers: Encounter type: initial encounter Qualified Code(s): S86.911A - Strain of unspecified muscle(s) and tendon(s) at lower leg level, right leg, initial encounter Abrasion of forehead Qualifiers: Encounter type: initial encounter Qualified Code(s): S00.81XA - Abrasion of other part of head, initial encounter Condition: Stable Prescriptions: New ibuprofen 800 mg tablet 800 mg PO Q8H PRN (Reason: pain) Qty: 20 RF: 0 hydrocodone-acetaminophen 5-325 mg tablet 1 tab PO Q6H PRN (Reason: pain) Qty: 14 RF: 0 No Action cyclobenzaprine 10 mg tablet 10 mg PO BID PRN (Reason: muscle spasm) Qty: 20 RF: 0 furosemide 40 mg Tablet 40 mg PO DAILY RF: 0 potassium chloride 10 mEq Capsule, Extended Release 10 meq PO DAILY RF: 0 carvedilol 6.25 mg Tablet 6.25 mg PO DAILY RF: 0 allopurinol 100 mg Tablet 100 mg PO DAILY RF: 0 nabumetone 500 mg Tablet 500 mg PO DAILY RF: 0 Tylenol 325 mg Tablet 325 - 650 mg PO QID PRN (Reason: PAIN/FEVER) RF: 0 furosemide 20 mg tablet 20 mg PO DAILY Qty: 7 RF: 0 Discharge Orders: Discharge ED (Routine); Ordered 05/08/21 Ordered By: Lorna Morales Coding Level of Care Code ED Engineer Remote Control Diesel for Chg Fwd Exam Detailed
--- NOTE | 2021-05-08 13:15 | XRR_ITS ---
PROCEDURE INFORMATION: Exam: XR Right Foot Exam date and time: 05/08/2021 1:15 PM Age: 40 years old Clinical indication: Injury or trauma; Swelling (edema); Right; Injury date: 05/08/21; Patient HX: PT was here 05/05/21 for chronic knee pain, had xrays 05/05/21. Now using crutches has fallen and caught leg under him. C/O pain and swelling RT knee, ankle, foot; Additional info: Fall, pain TECHNIQUE: Imaging protocol: XR Right foot. Views: 3 or more views. Total images: 3 COMPARISON: CR XR foot RT min 3V* [id number] 12/06/2019 7:23 PM FINDINGS: Bones/joints: First metatarsal phalangeal and distal interphalangeal joint of the great toe showing mild degenerative changes unchanged from prior exam. Click Achilles. Degeneration of the dorsal midfoot is present. No acute fracture nor subluxation. No osseous erosion nor periosteal reaction. Soft tissues: Dorsal soft tissue swelling is present. XR/XR foot RT min 3V* [id number] IMPRESSION: 1. Dorsal soft tissue swelling is present. 2. No acute osseous pathology.
--- NOTE | 2021-05-08 13:15 | XRR_ITS ---
PROCEDURE INFORMATION: Exam: XR Right Knee Exam date and time: 05/08/2021 1:15 PM Age: 40 years old Clinical indication: Injury or trauma; Fall; Swelling (edema); Right; Injury date: 05/08/21; Patient HX: PT has had chronic pain RT knee. Had xrays 05/05/21. Now using crutches and fell. C/O pain and swelling RT knee , ankle, foot. When fell, leg went under him. ; Additional info: Fall, pain TECHNIQUE: Imaging protocol: XR Right knee. Views: 3 views. Total images: 3 COMPARISON: CR XR knee RT 3V* [id number] 05/05/2021 8:45 AM FINDINGS: Bones/joints: Small joint effusion. No acute fracture nor subluxation. No osseous erosion nor periosteal reaction. Soft tissues: Normal. XR/XR knee RT 3V* [id number] IMPRESSION: 1. Small joint effusion. 2. No acute osseous pathology.
--- NOTE | 2021-05-08 13:15 | XRR_ITS ---
PROCEDURE INFORMATION: Exam: XR Right Ankle Exam date and time: 05/08/2021 1:15 PM Age: 40 years old Clinical indication: Injury or trauma; Swelling (edema); Right; Injury date: 05/08/21; Patient HX: PT has had chronic pain RT knee-had xrays 05/05/21. Was using crutches now and has fallen, catching the the leg under him when fell. C/O pain RT knee, ankle, foot. C/O swelling; Additional info: Fall, pain TECHNIQUE: Imaging protocol: XR Right ankle. Views: 3 or more views. Total images: 3 COMPARISON: CR XR ankle RT min 3V* [id number] 05/05/2021 8:45 AM FINDINGS: Bones/joints: An enthesophyte is noted at the Achilles tendon insertion site. Degeneration of the dorsal midfoot is present. No acute fracture nor subluxation. No osseous erosion nor periosteal reaction. Soft tissues: Dorsal soft tissue swelling is present over the foot. XR/XR ankle RT min 3V* [id number] IMPRESSION: 1. Dorsal soft tissue swelling is present over the foot. 2. No acute osseous pathology.
--- NOTE | 2021-05-08 13:18 | CTR_ITS ---
PROCEDURE INFORMATION: Exam: CT Head Without Contrast Exam date and time: 05/08/2021 1:18 PM Age: 40 years old Clinical indication: Injury or trauma; Fall; Blunt trauma (contusions or hematomas); Patient HX: PT fell striking R periorbital area on chair. Has laceration TECHNIQUE: Imaging protocol: Computed tomography of the head without contrast. Radiation optimization: All CT scans at this facility use at least one of these dose optimization techniques: automated exposure control; mA and/or kV adjustment per patient size (includes targeted exams where dose is matched to clinical indication); or iterative reconstruction. COMPARISON: CT head wo con* [id number] 06/14/2019 12:00 PM RADIATION DOSE METRICS: Total DLP (mGy-cm): 1102.02 FINDINGS: Brain: Normal. No hemorrhage. Unremarkable white matter. No mass effect. Cerebral ventricles: No ventriculomegaly. Paranasal sinuses: Visualized sinuses are unremarkable. No fluid levels. Mastoid air cells: Visualized mastoid air cells are well aerated. Bones/joints: Unremarkable. No acute fracture. Soft tissues: Unremarkable. CT/CT head wo con* [id number] IMPRESSION: No acute intracranial abnormality.
[2021-05-08 14:34] VITALS: BP 232/131; PULSE 86; RESP 18; TEMP 37.3; O2SAT 97
== END 2021-05-08 16:00 | disposition home or self-care (01) ==
PROVIDERS: Emergency Provider Physician Assistant
DX: S86.911A Strain of unspecified muscle(s) and tendon(s) at lower leg level, right leg, initial encounter (principal); W01.0XXA Fall on same level from slipping, tripping and stumbling without subsequent striking against object, initial encounter; S00.211A Abrasion of right eyelid and periocular area, initial encounter
CPT/HCPCS: 70450; 73562; 73590; 73610; 73630; 99283; 99291

== ENCOUNTER → 2021-06-08 15:33 | Outpatient (BNVA) | payer MEDICAID, SELFPAY | PROVIDERS: Visit Provider Nurse Practitioner Family | DX: Z20.822 Contact with and (suspected) exposure to COVID-19 (principal) | CPT/HCPCS: 87635 ==

== ENCOUNTER → 2021-06-16 15:00 | Outpatient (BNVA) | payer MEDICAID, SELFPAY | PROVIDERS: Visit Provider Nurse Practitioner Family | DX: Z20.822 Contact with and (suspected) exposure to COVID-19 (principal) | CPT/HCPCS: 87635 ==

== ENCOUNTER → 2021-10-05 14:19 | Outpatient (BNVA) | payer MEDICAID, SELFPAY | PROVIDERS: Visit Provider Internal Medicine | DX: I10 Essential (primary) hypertension (principal); R00.2 Palpitations; R07.9 Chest pain, unspecified; R60.9 Edema, unspecified; R00.0 Tachycardia, unspecified; R00.1 Bradycardia, unspecified | CPT/HCPCS: 80048; 80061; 83880; 93270; 99203; 99204 ==

== ENCOUNTER → 2021-12-08 14:41 | Outpatient (BNVA) | payer MEDICAID, SELFPAY | PROVIDERS: Visit Provider Internal Medicine | DX: I10 Essential (primary) hypertension (principal); R00.2 Palpitations | CPT/HCPCS: 99213; 99214 ==

== ENCOUNTER 2021-12-30 05:55 | Outpatient (CLI) | payer MEDICAID, SELFPAY ==
--- NOTE | 2021-12-30 06:15 | USCV_ITS ---
Chris Pankaj Age: 41 Gender: M : 1980 Exam Date: 12/30/2021 06:28 Ordering Phys: Dilip Christianson M.D ([email or web address]) Technologist: RICHARD Exam Location: [facility] [place] Indication: DYSPNEA BP: 138 / 85 HR: 70 Rhythm: Sinus Technical Quality: Adequate MEASUREMENTS (Male / Female) Normal Values 2D ECHO LV Diastolic Diameter PLAX 6.5 cm 4.2 - 5.9 / 3.9 - 5.3 cm LV Systolic Diameter PLAX 4.0 cm IVS Diastolic Thickness 1.5 cm 0.6 - 1.0 / 0.6 - 0.9 cm IVS Systolic Thickness 1.8 cm LVPW Diastolic Thickness 1.4 cm 0.6 - 1.0 / 0.6 - 0.9 cm LVPW Systolic Thickness 2.5 cm LVOT Diameter 2.0 cm LV Ejection Fraction 2D Teich 69.1 % LV Ejection Fraction MOD 2C 52.9 % LV Ejection Fraction 2C AL 51.9 % LA Diameter 4.0 cm LA Width 4.1 cm LA Height 5.3 cm RA Width 3.9 cm RA Height 5.2 cm Aorta at Sinotubular Diameter 2.5 cm M-MODE Aortic Annulus Diameter 3.7 cm LA Ao Ratio MM 1.1 MV E Point Septal Separation 0.6 cm DOPPLER AV Peak Velocity 140.3 cm/s LVOT Peak Velocity 105.0 cm/s AV Area Cont Eq vti 2.4 cm squared AV Area Cont Eq pk 2.4 cm squared MV Peak Velocity 118.0 cm/s MV Area PHT 3.6 cm squared Mitral E to A Ratio 1.3 MV E' Velocity 106.0 cm/s Mitral E to LV E' Septal Ratio 12.8 TR Peak Velocity 106.4 cm/s TR Peak Gradient 4.5 mmHg TR Mean Velocity 83.2 cm/s TR Mean Gradient 2.9 mmHg TR Velocity Time Integral 21.8 cm TV Peak E Velocity 68.0 cm/s Right Atrial Pressure 8.0 mmHg Pulmonary Artery Systolic Pressu 12.5 mmHg PV Peak Velocity 108.0 cm/s RV Acceleration Time 0.1 s RV Ejection Time 0.3 s RV AcT/ET 0.4 FINDINGS Left Ventricle Normal left ventricular size and systolic function, EF 57 %. The left ventricle appears to be mildly dilated. No regional wall motion abnormalities. Echo contrast was used to delineate the endocardium and ejection fraction estimation. Right Ventricle Probably of normal size ejection fraction Right Atrium Possibly of normal size Left Atrium Possibly of normal size Mitral Valve No gross abnormalities noted Aortic Valve All gross abnormality noted Tricuspid Valve The valve was not visualized Pulmonic Valve Pulmonic valve not well visualized. Pericardium No pericardial effusion. Aorta Normal aortic annulus size. IVC Inferior vena cava not visualized. CONCLUSIONS Normal left ventricular size and systolic function, EF 57 %. The left ventricle appears to be mildly dilated. No regional wall motion abnormalities. Echo contrast was used to delineate the endocardium and ejection fraction estimation. The aortic and mitral valve morphology appears within normal limits. No pericardial effusion was noted. No similar previous studies are available for comparison Dr Kathe Smith MD FACC (Electronically Signed) Final Date: 30 December 2021 13:31 S
[2021-12-30] MEDS: perflutren protein-a microsphr 0.22 mg/mL SDV 3 mL IV (07:09)
[2021-12-30 09:45] LABS: Anion Gap 12.2 (5-19); Blood Urea Nitrogen 18 mg/dL (6-20); Calcium 9.6 mg/dL (8.5-10.5); Carbon Dioxide 28 mmol/L (22-29); Chloride 103 mmol/L (98-107); Glucose 110 mg/dL (65-115); NT Pro B Type Natriuretic Pept 21 pg/mL (0-125); Osmolality Calculated 291 mOsm/kg (285-295); Potassium 4.2 mmol/L (3.5-5.1); Sodium 139 mmol/L (136-145)
== END 2021-12-30 05:56 | disposition home or self-care (01) ==
LOC: RAD 05:56
PROVIDERS: Visit Provider Internal Medicine
DX: R06.00 Dyspnea, unspecified (principal); R00.2 Palpitations; R07.9 Chest pain, unspecified
CPT/HCPCS: 80048; 83880; C8929

== ENCOUNTER 2022-01-15 10:08 | Emergency (ER) | payer MEDICAID, SELFPAY ==
[2022-01-15 10:16] VITALS: BP 189/84; PULSE 106; RESP 18; TEMP 36.2; O2SAT 92
--- NOTE | 2022-01-15 10:24 | XRR_ITS ---
PROCEDURE INFORMATION: Exam: XR Right Shoulder Exam date and time: 01/15/2022 10:47 AM Age: 41 years old Clinical indication: Pain; Shoulder; Right; Additional info: Right shoulder pain TECHNIQUE: Imaging protocol: Radiologic exam of the Right shoulder. Views: 2 or more views. COMPARISON: CR XR chest 1V portable [id number] 12/13/2020 4:40 PM FINDINGS: Bones/joints: No acute fracture or malalignment. Mild acromioclavicular and glenohumeral joint degenerative changes. Soft tissues: Normal. XR/XR shoulder RT min 2V* [id number] IMPRESSION: No acute fracture or malalignment.
--- NOTE | 2022-01-15 10:27 | W.ED.BACK ---
HPI - Back Pain/Injury General: Chief Complaint: Back Pain/Injury Stated Complaint: neck/back/shoulder pain Time Seen by Provider: 01/15/22 10:13 History of Present Illness: Patient is a 41-year-old male comes to the ED with right shoulder pain. Symptoms started approximately 7 days ago. He went out and helped his son mow the yard and the next day as well as right shoulder started hurting. Pain starts on the right trapezius muscle and radiates down into the front of the shoulder. He rates the pain currently a 10 out of 10. Patient is also complaining of having some right ear pain that started about 5 days ago. Denies any fevers or ear drainage. He has not been swimming or gotten any water in his ear preceding symptoms. Associated symptoms: Deny abdominal pain, chills, dysuria, fatigue, fever(s), hematuria, nausea or vomiting Review of Systems Const: Denies: fever(s), chills or fatigue Eyes: Denies: change in vision or eye discomfort ENMT: Reports: ear or mastoid pain (right ear); Denies: throat pain, odynophagia, ear discharge, nasal discharge or nasal congestion Card: Denies: chest pain, palpitations, edema, swelling of feet/ankles, dyspnea on exertion or orthopnea Resp: Denies: dyspnea, productive cough or non-productive cough GI: Denies: abdominal pain, nausea, vomiting, diarrhea, constipation or hematochezia : Denies: flank pain, difficulty urinating, dysuria or hematuria Musc: Reports: extremity pain (right shoulder pain); Denies: neck pain, back pain or extremity swelling Skin/Breast: Denies: rash or new lesions Neuro: Denies: headache(s), numbness in extremities or weakness in extremities PFS ED PFSH: Medical History Cervical disc disorder with myelopathy of mid-cervical region Displacement of lumbar intervertebral disc Low back pain of over 3 months duration Lumbar disc disease Morbid obesity with BMI of 50.0-59.9, adult Neck pain of over 3 months duration Stenosis of cervical spine with myelopathy Surgical History No pertinent past surgical history Family History Mother SVT (supraventricular tachycardia) Arthritis Hypertension Grandfather Arthritis Dementia Diabetes Hypertension Grandmother Arthritis Dementia Diabetes Hypertension Social History Smoking and tobacco status: never smoked Alcohol intake: former Household members: spouse and children Marital status: Current occupational status: unemployed History of recent travel: No Physical Exam Const: COMMON NORMALS: no acute distress, patient oriented x3 and alert HENMT: COMMON NORMALS: normocephalic and EAC's normal HEAD & SCALP: normocephalic EXTERNAL AUDITORY CANAL: EAC's normal TYMPANIC MEMBRANE: TM normal on the left and TM abnormal TM laterality: right Details: dull, erythematous and fluid behind TM MOUTH: Normal oral and palatal mucosa present THROAT: posterior oropharynx normal and uvula midline Neck/C-Spine: COMMON NORMALS: supple GENERAL: Yes normal visual inspection CERVICAL SPINE: Yes Trapezius muscle tenderness right Resp: COMMON NORMALS: normal respiratory effort, No retractions, No use of accessory muscles and clear to auscultation bilaterally AUSCULTATION: clear to auscultation bilaterally Cardio: COMMON NORMALS: regular rate, regular rhythm, S1 normal heart sound present, S2 normal heart sound present, No gallops present (Cardio), No clicks present (Cardio), No murmurs present (Cardio) and Peripheral pulses 2+ throughout RATE: regular rate RHYTHM: regular rhythm HEART SOUNDS: S1 normal heart sound present and S2 normal heart sound present PERIPHERAL PULSES: Peripheral pulses 2+ throughout GI: COMMON NORMALS: Normal to inspection, nondistended, normoactive bowel sounds present, Soft to palpation, non-tender and no masses PALPATION: Yes Soft to palpation : COMMON NORMALS: Yes no CVA tenderness BLADDER/KIDNEY EXAM: Yes no CVA tenderness Back/Pelvis: COMMON NORMALS: no CVA tenderness Extremity: COMMON NORMALS: normal to inspection NARRATIVE EXTREMITY EXAM: Right shoulder?no visible deformity noted. He has some palpable tenderness over anterior aspect of shoulder and the AC joint. Limited range of motion due to pain. Neurovascular intact distally. Neuro: COMMON NORMALS: patient oriented x3 SENSORIUM/ORIENTATION: Yes alert GAIT: Yes Normal gait present Skin: GENERAL SKIN EXAM: dry skin Course Vital Signs: Vital signs: Vital Signs Temperature 97.1 F L 01/15/22 10:16 Pulse Rate 106 H 01/15/22 10:16 Respiratory Rate 18 01/15/22 10:16 Blood Pressure 189/84 01/15/22 10:16 Pulse Oximetry 92 01/15/22 10:16 Oxygen Delivery Me thod 01/15/22 10:16 MDM - Back Pain/Injury Medical Decision Making Patient is a 41-year-old male comes to the ED with right shoulder pain. Symptoms started approximately 7 days ago. He went out and helped his son mow the yard and the next day as well as right shoulder started hurting. Pain starts on the right trapezius muscle and radiates down into the front of the shoulder. Patient is also complaining of some right ear pain as well. Denies any discharge from ear. Vitals are stable. Exam of patient shows signs of otitis media in right ear. He has some right trapezius muscle tenderness along with tenderness on his right AC joint. Neurovascular tact distally on right arm. Rest of exam is benign. X-ray of right shoulder showed no acute fractures or findings. Patient was diagnosed with muscle strain of right shoulder and otitis media. He was discharged home with a prescription for amoxicillin, Celebrex and a muscle relaxer. Told to follow-up PCP in the next week for reevaluation. Patient was also put in a sling for discharge and told to wear it for the next couple days to allow for healing. He was instructed on how to prevent frozen shoulder by removing his arm from sling multiple times throughout the day and doing some range of motion exercises. Patient stood agree with plan. Labs Radiology Impressions Shoulder X-Ray 01/15/22 10:24 IMPRESSION: No acute fracture or malalignment. Discharge Plan Discharge Patient Disposition: Home Clinical Impression: Muscle strain of right shoulder Qualifiers: Encounter type: initial encounter Qualified Code(s): S46.911A - Strain of unspecified muscle, fascia and tendon at shoulder and upper arm level, right arm, initial encounter Otitis media Qualifiers: Otitis media type: unspecified Chronicity: acute Qualified Code(s): H66.90 - Otitis media, unspecified, unspecified ear Condition: Stable Prescriptions: New Celebrex 100 mg capsule 100 mg PO BID PRN (Reason: pain) Qty: 30 0RF cyclobenzaprine 10 mg tablet 10 mg PO BID PRN (Reason: muscle spasm) Qty: 20 0RF amoxicillin 500 mg capsule 500 mg PO BID 7 Days Qty: 14 0RF No Action amlodipine 10 mg tablet 10 mg PO DAILY Qty: 90 3RF metoprolol tartrate 50 mg tablet 50 mg PO BID Qty: 180 3RF furosemide 40 mg tablet 40 mg PO BID Qty: 180 3RF ibuprofen 800 mg tablet 800 mg PO Q8H PRN (Reason: pain) Qty: 20 0RF potassium chloride 10 mEq Capsule, Extended Release 10 meq PO DAILY Tylenol 325 mg Tablet 325 - 650 mg PO QID PRN (Reason: PAIN/FEVER) Discharge Orders: Discharge ED (Routine); Ordered 01/15/22 Ordered By: Afshin Wu Discharge Diet: Regular Discharge Activity: Increase activity as tolerated Patient Instructions: Otitis Media - Adult, Muscle Strain (DC), Fluid In The Ear (Serous Otitis Media) (ED) Activity Restrictions/Additional Instructions: Follow-up with medical provider as directed the next 5 to 7 days reevaluation. She can wear shoulder sling for the next 2 to 3 days to allow her right shoulder to rest and heal. Remove arm from sling multiple times throughout the day and do some range of motion exercises to prevent frozen shoulder. Take medications as prescribed. You can also get [id number] decongestants and Flonase nasal spray to help with fluid behind the ears. Return to the ER or your medical provider if condition worsens. Please read and understand discharge instructions. Thank you for choosing [facility] for your healthcare needs today. Please realize this is an emergency room and that we are providing you with a medical screening exam and this may not be complete and all inclusive of all the testing and or work up that you may need to determine your ailment or severity of your illness. It is very important that you follow up as instructed or that you return to the Emergency Department should you have concerns or if your condition changes or worsens in any way. Coding Level of Care Code ED Makeup Instructor for Epi Hassan Exam Comprehensive
[2022-01-15] MEDS: HYDROcodone-acetaminophen 5-325 mg Tablet 1 TAB PO (10:33)
== END 2022-01-15 11:37 | disposition home or self-care (01) ==
PROVIDERS: Emergency Provider Physician Assistant
DX: S46.911A Strain of unspecified muscle, fascia and tendon at shoulder and upper arm level, right arm, initial encounter (principal); H66.91 Otitis media, unspecified, right ear; X58.XXXA Exposure to other specified factors, initial encounter
CPT/HCPCS: 73030; 99283

== ENCOUNTER 2022-03-01 09:42 | Outpatient (CLI) | payer MEDICAID, SELFPAY ==
--- NOTE | 2022-03-01 09:30 | USCV_ITS ---
Pankaj Perez Age: 41 Gender: M : 1980 Exam Date: 03/01/2022 10:02 Ordering Phys: Twyla Estrada Technologist: Exam Location: [facility] [place]_ Indication: HISTORY: PROCEDURES: FINDINGS: All deep veins demonstrated compressibility without evidence of intraluminal thrombus or increased echogenicity. Spectral analysis of Doppler signals demonstrates normal response to compression maneuvers indicating patency without obstruction. Reflux determinations were made with the patient in the dependent position, the weight being on the contralateral leg. No notable reflux was seen at this time. The veins were found to be easily compressible with spontaneous blood flow. Non pulsatile flow pattern. Multiple echolucent areas are noted in the subcutaneous tissue at the below-knee level on the left side CONCLUSIONS No evidence of DVT in the above-mentioned identifiable veins. No significant venous reflux either in the deep or in the superficial veins bilaterally Features suggestive of fluid retention/edema on the left side Dr Kathe Smith MD [facility] (Electronically Signed) Final Date: 03 March 2022 08:13 S
== END 2022-03-01 09:43 | disposition home or self-care (01) ==
PROVIDERS: Visit Provider Nurse Practitioner Family
DX: R60.0 Localized edema (principal)
CPT/HCPCS: 93970

== ENCOUNTER → 2022-03-30 16:04 | Outpatient (BNVA) | payer MEDICAID, SELFPAY | PROVIDERS: Visit Provider Family Medicine | DX: G47.00 Insomnia, unspecified (principal); R06.83 Snoring; Z68.44 Body mass index [BMI] 60.0-69.9, adult; I10 Essential (primary) hypertension; I89.0 Lymphedema, not elsewhere classified; M48.02 Spinal stenosis, cervical region; G99.2 Myelopathy in diseases classified elsewhere | CPT/HCPCS: 80053; 80061; 83036; 84439; 84443; 85025 ==

== ENCOUNTER 2022-04-07 12:11 | Outpatient (CLI) | payer MEDICAID, SELFPAY ==
--- NOTE | 2022-04-07 12:16 | XR_ITS ---
WS: [id number] Exam: [place] [id number] Date/Time of Exam: 04/07/2022 12:26 PM Reason For Exam: Pain No acute fracture or dislocation. Mild degenerative change at the AC joint. Normal soft tissues. XR/[place] [id number] IMPRESSION: 1. Mild degenerative change at the AC joint. No other significant finding.
== END 2022-04-07 12:12 | disposition home or self-care (01) ==
LOC: RAD 12:13
PROVIDERS: PCP Family Medicine; Visit Provider Family Medicine
DX: M89.8X1 Other specified disorders of bone, shoulder (principal)
CPT/HCPCS: 73000; 80048

== ENCOUNTER → 2022-05-03 09:39 | Outpatient (BNVA) | payer MEDICAID, SELFPAY | PROVIDERS: PCP Family Medicine; Referring Provider Family Medicine; Visit Provider Physician Assistant | DX: M48.02 Spinal stenosis, cervical region (principal); M47.12 Other spondylosis with myelopathy, cervical region | CPT/HCPCS: 72050 ==

== ENCOUNTER 2022-05-22 10:58 | Emergency (ER) | payer MEDICAID, SELFPAY ==
[2022-05-22 11:08] VITALS: BP 188/94; PULSE 92; RESP 20; TEMP 37; O2SAT 97
--- NOTE | 2022-05-22 11:13 | XRR_ITS ---
PROCEDURE INFORMATION: Exam: XR Right Elbow Exam date and time: 05/22/2022 11:38 AM Age: 41 years old Clinical indication: Pain; Elbow; Right; Additional info: Severe pain, no trauma TECHNIQUE: Imaging protocol: Radiologic exam of the Right elbow. Views: 3 or more views. COMPARISON: CR (CHEST, ) 01/15/2022 10:47 AM FINDINGS: Bones/joints: Negative for acute bony abnormality Soft tissues: Normal. XR/XR elbow RT min 3V* [id number] IMPRESSION: No acute findings.
[2022-05-22] MEDS: HYDROcodone-acetaminophen 5-325 mg Tablet 1 TAB PO (12:54)
--- NOTE | 2022-05-22 15:28 | ED_ITS ---
HPI - Extremity Problem General: Chief complaint: Extremity Problem,Nontraumatic Stated complaint: right arm mobility issue Time Seen by Provider: 05/22/22 11:13 History of Present Illness: 41-year-old male patient presents to the emergency department with right elbow pain x2 days. Patient denies any injury or trauma. Patient states the pain is worsened over the last 2 days. Patient states he does have history of gout but does not take medications for this any longer. Patient denies any numbness or tingling. Patient denies any fever. Patient denies any other complaints at this time. Associated symptoms: Deny chest pain, fever(s) or rash Review of Systems Const: Denies: fever(s), chills, body aches, change in appetite, change in weight, fatigue, malaise or diaphoresis Eyes: Denies: change in vision, blurry vision, blind spots, photophobia, eye discomfort, eye discharge, eye redness, floaters or seeing flashes ENMT: Denies: throat pain, uvular edema, enlarged tonsils, odynophagia, hoarseness, mouth pain, swelling of lips/tongue, oral sores, bleeding gums, dental pain, dry mouth, ear or mastoid pain, ear discharge, change in hearing, tinnitus, disequilibrium, nasal discharge, nasal congestion, post nasal drip or sinus pain Card: Denies: chest pain, palpitations, irregular heart rhythm, edema, swelling of feet/ankles, lightheadedness, syncope, pre-syncope, dyspnea on exertion, orthopnea, leg pain with exertion or acrocyanosis Resp: Denies: dyspnea, productive cough, non-productive cough, wheezing, stridor, pain on inspiration, change in phlegm color, hemoptysis or chest congestion GI: Denies: abdominal pain, nausea, vomiting, hematemesis, dysphagia, diarrhea, constipation, GI cramping, change in bowel habits or rectal pain : Denies: flank pain, dysuria, urinary frequency, urinary urgency, urinary hesitancy or hematuria Musc: Denies: neck pain, back pain, joint pain, joint swelling, joint redness, joint warmth or deformity Skin/Breast: Denies: rash, pruritus, erythema, sores, new lesions, changes in skin color or dry skin Neuro: Denies: headache(s), numbness in extremities, weakness in extremities, sensory changes, lack of coordination, difficulty walking, frequent falls, dizziness, vertigo, confusion, behavioral changes, Slurred speech present, difficulty communicating thoughts or seizure-like activity Psych: Denies: anxiety, depression, suicidal ideation or homicidal ideation Endo: Denies: polyuria, polydipsia, tired all the time, cold intolerance, excessive sweating, flushing, hot flashes or heat intolerance Gilberto/Lymph: Denies: easy bruising, easy bleeding, petechiae, purpura, enlarged lymph nodes or tender lymph nodes All/Imm: Denies: urticaria, throat swelling, tongue swelling, facial swelling, acute wheezing or itchy eyes PFSH ED PFSH: Medical History Cervical disc disorder with myelopathy of mid-cervical region Displacement of lumbar intervertebral disc Low back pain of over 3 months duration Lumbar disc disease Morbid obesity with BMI of 50.0-59.9, adult Neck pain of over 3 months duration Stenosis of cervical spine with myelopathy Surgical History No pertinent past surgical history Family History Mother SVT (supraventricular tachycardia) Arthritis Hypertension Grandfather Arthritis Dementia Diabetes Hypertension CAD (coronary artery disease) Cancer Grandmother Arthritis Dementia Diabetes Hypertension Cancer Other Lung disease Denies family history of Clotting disorder Chronic kidney disease (CKD) Anesthesia complication Bleeding disorder Stroke Social History Smoking and tobacco status: never smoked Alcohol intake: former Desire information about alcohol rehabilitation?: No Desire information about substance/drug rehabilitation?: No Household members: spouse and children Marital status: Current occupational status: unemployed History of recent travel: No Current gender identity: Male Physical Exam Const: COMMON NORMALS: no acute distress, average body habitus, patient oriented x3, no limitations, healthy appearing, alert and well nourished HENMT: THROAT: no uvular edema Resp: COMMON NORMALS: normal respiratory effort, No retractions, No use of accessory muscles, clear to auscultation bilaterally and percussion normal AUSCULTATION: clear to auscultation bilaterally PERCUSSION: percussion normal Extremity: RIGHT UPPER EXTREMITY: Yes elbow joint (tender with palpation mild erythema and mild swelling NVI distally) Neuro: COMMON NORMALS: patient oriented x3 SENSORIUM/ORIENTATION: Yes alert Course Vital Signs: Vital signs: Vital Signs Temperature 98.6 F 05/22/22 11:08 Pulse Rate 92 05/22/22 11:08 Respiratory Rate 20 H 05/22/22 11:08 Blood Pressure 188/94 05/22/22 11:08 Pulse Oximetry 97 05/22/22 11:08 MDM - Extremity (Nontraumatic) Medical Decision Making Patient is well-appearing nontoxic and in no acute distress. 41-year-old male patient presents to the emergency department with right elbow pain x2 days. Patient denies any injury or trauma. Patient states the pain is worsened over the last 2 days. Patient states he does have history of gout but does not take medications for this any longer. Patient denies any numbness or tingling. Patient denies any fever. Patient denies any other complaints at this time. X- ray was negative for any acute findings. Patient's findings are consistent with gout. I will put patient on a short course of pain meds as well as 5 days of steroids. Patient has been discussed with return precautions as well as home care. Patient was neurovascularly intact distally to area of pain. I do not feel patient would warrant from any further testing at this time. Patient is medically cleared and appropriate for discharge Lab Data Radiology Impressions Elbow X-Ray 05/22/22 11:13 IMPRESSION: No acute findings. Discharge Plan Discharge Patient Disposition: Home Clinical Impression: Gout Condition: Stable Prescriptions: New prednisone 20 mg tablet 20 mg PO BID 5 Days Qty: 10 0RF hydrocodone-acetaminophen 5-325 mg tablet 1 tab PO Q8H PRN (Reason: pain) Qty: 12 0RF No Action (DME) Compression leg wraps large See Rx Instructions .Route .MEDSUPPLY Qty: 2 5RF Rx Instructions: As directed amlodipine 10 mg tablet 10 mg PO DAILY Qty: 90 3RF metoprolol tartrate 50 mg tablet 50 mg PO BID Qty: 180 3RF losartan 25 mg tablet 25 mg PO DAILY Qty: 60 2RF torsemide 20 mg tablet 60 mg PO DAILY 60 Days Qty: 180 0RF Rx Instructions: take TWO tablets in AM and ONE tablet at noon ibuprofen 800 mg tablet 800 mg PO Q8H PRN (Reason: pain) Qty: 20 0RF potassium chloride 10 mEq Capsule, Extended Release 10 meq PO DAILY Tylenol 325 mg Tablet 325 - 650 mg PO QID PRN (Reason: PAIN/FEVER) Discharge Orders: Discharge ED (Routine); Ordered 05/22/22 Ordered By: Elaina Frank Referrals: Dilshad Bennett MD [Primary Care Provider] - Discharge Diet: Advance as tolerated Patient Instructions: Gout (ED), Opioid Safety, Pain Management Activity Restrictions/Additional Instructions: Take meds as prescribed Please do not drive or operate heavy machinery while taking [place] Follow up with PCP Return to ER with any worsening of symptoms Coding Level of Care Code ED Testing Projects Administrator for Epi Hassan
== END 2022-05-22 12:57 | disposition home or self-care (01) ==
PROVIDERS: Emergency Provider Registered Nurse; PCP Family Medicine
DX: M10.9 Gout, unspecified (principal)
CPT/HCPCS: 73080; 99283

== ENCOUNTER → 2022-05-26 14:40 | Outpatient (BNVA) | payer MEDICAID, SELFPAY | PROVIDERS: PCP Family Medicine; Visit Provider Family Medicine | DX: M10.9 Gout, unspecified (principal); R53.83 Other fatigue; I89.0 Lymphedema, not elsewhere classified; Z68.44 Body mass index [BMI] 60.0-69.9, adult; R60.0 Localized edema; R06.83 Snoring | CPT/HCPCS: 80053; 84550 ==

== ENCOUNTER → 2022-06-01 11:35 | Outpatient (BNVA) | payer MEDICAID, SELFPAY | PROVIDERS: PCP Family Medicine; Visit Provider Family Medicine | DX: R53.83 Other fatigue (principal) | CPT/HCPCS: 82040; 84270; 84403 ==

== ENCOUNTER 2022-06-08 11:41 | Outpatient (RCR) | payer MEDICAID, SELFPAY | END 2022-06-21 23:59 | disposition home or self-care (01) | LOC: SPT 11:41 | PROVIDERS: PCP Family Medicine; Visit Provider Family Medicine | DX: I89.0 Lymphedema, not elsewhere classified (principal); R60.0 Localized edema; Z68.44 Body mass index [BMI] 60.0-69.9, adult | CPT/HCPCS: 97161 ==

== ENCOUNTER 2022-06-22 06:00 | Outpatient (RCR) | payer MEDICAID, SELFPAY | END 2022-06-29 23:59 | disposition home or self-care (01) | LOC: SPT 06:00 | PROVIDERS: PCP Family Medicine; Visit Provider Family Medicine | DX: I89.0 Lymphedema, not elsewhere classified (principal) | CPT/HCPCS: 29581; 97140 ==

== ENCOUNTER → 2022-07-12 09:06 | Outpatient (BNVA) | payer MEDICAID, SELFPAY | PROVIDERS: PCP Family Medicine; Visit Provider Family Medicine | DX: R79.89 Other specified abnormal findings of blood chemistry (principal) | CPT/HCPCS: 84403 ==

== ENCOUNTER 2022-07-21 09:54 | Day surgery (SDC) | payer MEDICAID, SELFPAY ==
[2022-07-19 14:28] VITALS: BMI 62.0
[2022-07-21] VITALS (9 sets, daily range): BP systolic 113–171; BP diastolic 59–91; PULSE 62–78; RESP 16–18; TEMP -12.3–36.6; O2SAT 94–97
[2022-07-21] MEDS: sodium chloride 0.9% 1,000 ML 30 ML IV (10:26)
--- NOTE | 2022-07-21 11:30 | P.ANESASSM_ITS ---
Pre-Anesthetic Assessment Height/Weight: Height 1.75 m Weight 190.509 kg Temp Pulse Resp BP Pulse Ox O2 Del Method 97.8 F 78 18 171/91 95 07/21/22 10:05 07/21/22 10:05 07/21/22 10:05 07/21/22 10:05 07/21/22 10:05 07/21/22 10:07 Preop Diagnosis: Right inguinal hernia Operation Date: 07/21/22 11:10 Proposed Procedures p [id number] lap repair right inguinal hernia w/mesh, K40.90(Right) - Casper Ortega DO Familial anesthetic complications: none Was Beta Phoebe taken within 24 hours: Yes Was Clonidine taken within 24 hours: N/A Last intake: Intake Last Liquid Date 07/20/22 Last Liquid Time 11:00 Last Solid Date 07/20/22 Last Solid Time 21:00 Social No alcohol and No tobacco Exam alert, oriented x 3, clear to auscultation bilaterally and regular rate & rhythm Airway Submandibular: within normal limits Cervical ROM: within normal limits Mallampati: Class II Dentition: chipped Pulmonary Sleep Apnea CV/HEM Hypertension Metabolic Morbid Obesity [facility] [place] Lower Back Pain and Osteoarthritis/DJD Anesthetic Plan ASA status: 3 Anesthesia: General Medications/Allergies Home Medications Medication Instructions Recorded Confirmed Last Taken Type acetaminophen 325 mg tablet 325 - 650 mg PO QID PRN PAIN/FEVER 12/13/20 07/19/22 Unknown History (Tylenol) potassium chloride 10 mEq 10 meq PO DAILY 12/13/20 07/19/22 12/09/20 History capsule,extended release ibuprofen 800 mg tablet 800 mg PO Q8H PRN pain #20 tabs 05/08/21 07/19/22 Unknown Rx amlodipine 10 mg tablet 10 mg PO DAILY #90 tabs 10/05/21 07/19/22 07/20/22 Rx metoprolol tartrate 50 mg tablet 50 mg PO BID #180 tabs 10/05/21 07/19/22 07/21/22 Rx losartan 25 mg tablet 25 mg PO DAILY #60 tabs 03/11/22 07/19/22 07/21/22 Rx Compression leg wraps #2 ea 03/31/22 07/20/22 Unknown Rx hydrocodone 5 mg-acetaminophen 325 1 tab PO Q8H PRN pain #12 tabs 05/22/22 07/19/22 Unknown Rx mg tablet allopurinol 100 mg tablet 100 mg PO DAILY #90 tabs 05/27/22 07/19/22 07/20/22 Rx colchicine 0.6 mg tablet 0.6 mg PO DAILY #60 tabs 06/14/22 07/19/22 Unknown Rx torsemide 20 mg tablet 60 mg PO DAILY 60 days #180 tabs 06/24/22 07/19/22 07/18/22 Rx Allergies Allergy/AdvReac Type Severity Reaction Status Date / Time ketorolac [From Toradol] Allergy ADR/ALGY-Pa Verified 06/30/22 13:22 lpitations Current Medications Generic Name Dose Route Start Last Admin Trade Name Freq PRN Reason Stop Dose Admin Sodium Chloride 1,000 mls @ 30 mls/hr 07/21/22 10:00 07/21/22 10:26 Sodium Chloride 0.9% IV 07/22/22 09:59 30 mls/hr .Q24H ROLA Administration PFSH Anesthesia Medical History (Updated 07/08/22 @ 14:07 by Dilshad Bennett MD) Arthritis Cervical disc disorder with myelopathy of mid-cervical region Displacement of lumbar intervertebral disc Low back pain of over 3 months duration Lumbar disc disease Morbid obesity with BMI of 50.0-59.9, adult Neck pain of over 3 months duration Stenosis of cervical spine with myelopathy Surgical History No pertinent past surgical history Family History Mother SVT (supraventricular tachycardia) Arthritis Hypertension Grandfather Arthritis Dementia Diabetes Hypertension CAD (coronary artery disease) Cancer Grandmother Arthritis Dementia Diabetes Hypertension Cancer Other Lung disease Denies family history of Clotting disorder Chronic kidney disease (CKD) Anesthesia complication Bleeding disorder Stroke Social History Smoking and tobacco status: never smoked Alcohol intake: former Desire information about alcohol rehabilitation?: No Desire information about substance/drug rehabilitation?: No Household members: spouse and children Marital status: Current occupational status: unemployed History of recent travel: No Current gender identity: Male Data Anesthesia Cardiac Studies: Echocardiogram 12/30/21 Cardiac Event Monitor 10/05/21
--- NOTE | 2022-07-21 11:32 | W.PM.OPSUD ---
Surgery/Procedure H&P Update DATE OF PROCEDURE: July 21, 2022 DATE H&P PERFORMED: 06/30/22 H&P UPDATE INFORMATION: I have reviewed H&P completed within last 30 days, I have examined patient prior to procedure and No changes to prior documentation PREOP DIAGNOSIS: Right inguinal hernia PLANNED PROCEDURE: Operation Date: 07/21/22 11:10 Proposed Procedures p [id number] lap repair right inguinal hernia w/mesh, K40.90(Right) - Casper Ortega DO
[2022-07-21] MEDS: ceFAZolin 2,000 MG in sodium chloride 0.9% (plus) 50 ML 100 MG IV (11:48)
[2022-07-21] MEDS: ceFAZolin 1,000 MG in sodium chloride 0.9% (plus) 50 ML 100 MG IV (11:48)
[2022-07-21] MEDS: lidocaine-epi 2% 20 mL INJ INJECTION (13:21)
--- NOTE | 2022-07-21 13:22 | PM.OP ---
Operative Report Date of procedure: July 21, 2022 Pre-op diagnosis: Preop Diagnosis Right inguinal hernia Post-op diagnosis: other (Indirect right inguinal hernia) Procedure done: Laparoscopic (TEPP) repair of right inguinal hernia with mesh Implants: Extra-large right 3D max Bard mesh Surgeon: Dr. Casper Ortega DO Anesthesia: General Estimated blood loss (mL): 5 Complications: None apparent Brief History: This very pleasant 41-year-old gentleman who came to my office with a right inguinal hernia. Laparoscopic repair with mesh was indicated. The risk and benefits were explained and documented. Procedure: Patient was wheeled into the operative room and placed on the OR table in a supine position. Abdomen was inspected prepped and draped in usual sterile fashion. Time-out was performed and all present were in agreement. A 15 blade scalpel was used to make 1.2 centimeter incision infraumbilically. Combination of sharp and blunt dissection was performed down to the anterior rectus sheath which was opened sharply. The dissecting balloon was then inserted into the space of Retzius and blown up. We put the camera into the port and identified that we were in the correct space. I then placed 2 5 millimeter trocars suprapubically in the midline. I then used endokitners to bluntly dissect in the space of Retzius out laterally. An indirect inguinal hernia was identified on the right. Blunt dissection was performed to dissect down the hernia sac until the vas deferens dove medially. An extra-large right inguinal mesh was then placed into the space of Retzius. The mesh was unrolled and tacked once medially at the pubic bone. The mesh laid out nicely over the spermatic cord. Photos were taken of the mesh laid out and the hernia sac laid underneath the mesh. I watched the hernia sac remained in place as insufflation was removed. Incisions were closed with 4-0 Monocryl in a subcuticular interrupted fashion. Skin glue was applied. Patient tolerated the procedure well.
[2022-07-21] MEDS: HYDROcodone-acetaminophen 5-325 mg Tablet 1 TAB PO (14:40)
--- NOTE | 2022-07-21 17:05 | ANE.PACU2 ---
Inpatient post-anesthesia follow up: Airway intact: Yes Vital signs: Temperature 9.9 F Pulse Rate 66 Respiratory Rate 18 Blood Pressure 132/72 Pulse Oximetry 95 Oxygen Delivery Me thod Room Air Oxygen Flow Rate 3 Fraction of Inspir ed Oxygen Hydration adequate: Yes Nausea and vomiting: No Pain level: 3 Mental status: Baseline
== END 2022-07-21 15:05 | disposition home or self-care (01) ==
PROVIDERS: PCP Family Medicine; Visit Provider Surgery
PROC: (CPT 49650; principal; 2022-07-21 10:40)
DX: K40.90 Unilateral inguinal hernia, without obstruction or gangrene, not specified as recurrent (principal); I10 Essential (primary) hypertension; E66.01 Morbid (severe) obesity due to excess calories; Z68.44 Body mass index [BMI] 60.0-69.9, adult
CPT/HCPCS: 49650; 51702; C1781; J0131; J0330; J0690; J1100; J1200; J2370; J2405; J2704; J3010; J3490; J7030

== ENCOUNTER → 2022-10-06 13:21 | Outpatient (BNVA) | payer MEDICAID, SELFPAY | PROVIDERS: PCP Family Medicine; Visit Provider Student in an Organized Health Care Education/Training Program | DX: G56.03 Carpal tunnel syndrome, bilateral upper limbs (principal) | CPT/HCPCS: 73110 ==

== ENCOUNTER 2022-10-18 16:56 | Outpatient (CLI) | payer MEDICAID, SELFPAY ==
--- NOTE | 2022-10-18 17:00 | CT_ITS ---
WS: [id number] CT CERVICAL SPINE HISTORY: M48.02 - Spinal stenosis, cervical region TECHNIQUE: Contiguous 2.0 mm axial imaging performed through the entire cervical spine. Sagittal and coronal reformats also performed. All CT scans at [facility] use at least one of these dose o ptimization techniques: automated exposure control; mA and/or kV adjustment per patient size (include s targeted exams where dose is matched to clinical indication); or iterative reconstruction. DLP: 701.97 mGy.cm COMPARISON: 10/01/2019 Straightening of the normal cervical lordosis. Less reversal of the cervical curvature as compared to the prior study from 2019. Disc spaces are narrowed throughout with osteophytes involving the endpla nayana. No fracture. Normal craniocervical junction. Lateral masses of C1 and C2 are aligned. Odontoid p rocess is intact. C2-C3: Mild osteophytic ridging. No stenosis. C3-C4: Mild osteophytic ridging with a central disc protrusion. Facet joint arthritis. Mild central s tenosis. Moderate LEFT foraminal stenosis due to osteophyte and facet arthritis. Similar to the prior study. C4-C5: Mild osteophytic ridging. More focal osteophyte on the LEFT encroaching on the LEFT lateral th ecal sac. Moderate central and bilateral foraminal stenosis. C5-C6: Osteophytic ridging, more focal osteophyte LEFT lateral encroaching upon the LEFT lateral thec al sac. Similar to the prior study. There is contact on the cord and deformity. Mild central with mod erate LEFT foraminal stenosis. C6-C7: Osteophytic ridging encroaching upon the ventral thecal sac. Moderate central and bilateral fo raminal stenosis. Facet joint arthritis. C7-T1: Osteophytic ridging. Lung apices are clear. CT/CT cervical spin wo con* [id number] IMPRESSION: 1. Straightening of the normal cervical lordosis. Similar to the prior studies . 2. No cervical spine fracture. 3. Central and foraminal stenoses predominantly due to osteophyte disease and facet disease. 4. Moderate LEFT foraminal stenosis at C3-4, unchanged. 5. Mild central and RIGHT foraminal stenosis at C3-4 unchanged. 6. Moderate central and bilateral foraminal stenosis at C4-5. LEFT lateral gurjit tebral body osteophyte encroaching upon the thecal sac. 7. Mild central with moderate LEFT foraminal stenosis at C5-6. LEFT lateral ve rtebral body osteophyte encroaching on the LEFT lateral thecal sac. 8. Moderate central and bilateral foraminal stenosis at C6-7 is unchanged.
== END 2022-10-18 16:57 | disposition home or self-care (01) ==
PROVIDERS: PCP Family Medicine; Visit Provider Physician Assistant
DX: M48.02 Spinal stenosis, cervical region (principal); M47.12 Other spondylosis with myelopathy, cervical region; M25.78 Osteophyte, vertebrae
CPT/HCPCS: 72125

== ENCOUNTER 2023-03-15 10:26 | Outpatient (RCR) | payer MEDICAID, SELFPAY | END 2023-03-21 23:59 | disposition home or self-care (01) | LOC: SPT 10:26 | PROVIDERS: PCP Family Medicine; Visit Provider Anesthesiology Pain Medicine | DX: M54.2 Cervicalgia (principal); G89.29 Other chronic pain | CPT/HCPCS: 97110; 97161 ==

== ENCOUNTER 2023-04-24 08:39 | Day surgery (SDC) | payer MEDICAID, SELFPAY ==
[2023-04-24] VITALS (12 sets, daily range): BP systolic 161–195; BP diastolic 84–100; PULSE 72–79; RESP 13–21; TEMP 36.3–36.8; O2SAT 91–98; BMI 63.5
--- NOTE | 2023-04-24 09:18 | PM.HP ---
Providers/Chief Complaint Primary Care Provider: Dilshad Bennett MD Chief Complaint: 65744 K90.91 History of Present Illness Pankaj Perez is a 42 year old male Review of Systems General: Reports: 10 or more systems reviewed and unremarkable except in HPI and below Medications/Allergies Home Medications Medication Instructions Recorded Confirmed Last Taken Type acetaminophen 325 mg tablet 325 - 650 mg PO QID PRN PAIN/FEVER 12/13/20 04/21/23 04/07/23 10:00 History (Tylenol) potassium chloride 10 mEq 10 meq PO PRN PRN Cramps 12/13/20 04/21/23 12/09/20 History capsule,extended release Compression leg wraps #2 ea 03/31/22 03/31/23 Unknown Rx gabapentin 300 mg capsule 300 mg PO TID pain #90 caps 03/09/23 04/21/23 04/21/23 Rx tizanidine 4 mg tablet 4 mg PO BID PRN muscle spasticity 03/09/23 04/21/23 04/03/23 21:00 Rx #60 tabs colchicine (gout) 0.6 mg tablet 0.6 mg PO PRN PRN gout 04/07/23 04/21/23 03/22/21 History allopurinol 100 mg tablet 100 mg PO DAILY 04/21/23 04/21/23 04/20/23 History amlodipine 10 mg tablet 10 mg PO DAILY 04/21/23 04/21/23 04/23/23 History losartan 25 mg tablet 25 mg PO DAILY 04/21/23 04/21/23 04/23/23 History metoprolol tartrate 50 mg tablet 50 mg PO BID 04/21/23 04/21/23 04/23/23 History prednisone 20 mg tablet 40 mg PO DAILY 04/21/23 04/21/23 04/21/23 History torsemide 20 mg tablet 20 mg PO BID 04/21/23 04/21/23 04/21/23 History Allergies Allergy/AdvReac Type Severity Reaction Status Date / Time ketorolac [From Toradol] Allergy ADR/ALGY-Pa Verified 04/21/23 15:16 lpitations topiramate Allergy Unknown Verified 04/21/23 15:16 tramadol Allergy Unknown Verified 04/21/23 15:16 PFSH Acute PFSH: Medical History Arthritis Bilateral carpal tunnel syndrome Cervical disc disorder with myelopathy of mid-cervical region Displacement of lumbar intervertebral disc Low back pain of over 3 months duration Lumbar disc disease Morbid obesity with BMI of 50.0-59.9, adult Neck pain of over 3 months duration Stenosis of cervical spine with myelopathy Surgical History Status post right inguinal hernia repair Family History Mother SVT (supraventricular tachycardia) Arthritis Hypertension Grandfather Arthritis Dementia Diabetes Hypertension CAD (coronary artery disease) Cancer Grandmother Arthritis Dementia Diabetes Hypertension Cancer Other Lung disease Denies family history of Clotting disorder Chronic kidney disease (CKD) Anesthesia complication Bleeding disorder Stroke Social History Smoking and tobacco/nicotine status: never used tobacco/nicotine Alcohol intake: former Substance/Drug Use: never Household members: spouse and children Marital status: Current occupational status: unemployed Current gender identity: Male Vitals/I&O/Wt Last Vital Signs Temp 97.4 F L 04/24/23 09:06 Pulse 73 04/24/23 09:06 Resp 16 04/24/23 09:06 BP 195/100 04/24/23 09:06 Pulse Ox 97 04/24/23 09:06 O2 Del Method Room Air 04/24/23 09:09 Weight last 48 hrs Weight 430 lb A&P Assessment and plan (1) Recurrent right inguinal hernia: Plan Laparoscopic repair of recurrent right inguinal hernia with mesh Attestations Medical Necessity Statement*: Home Coding Level of Care Code Acute Code for Chg Fwd Diagnoses Recurrent right inguinal hernia K40.91
[2023-04-24] MEDS: sodium chloride 0.9% 1,000 ML 30 ML IV (09:21)
--- NOTE | 2023-04-24 09:32 | P.ANESASSM_ITS ---
Pre-Anesthetic Assessment Height/Weight: Height 1.75 m Weight 195.045 kg Temp Pulse Resp BP Pulse Ox O2 Del Method 97.4 F L 73 16 195/100 97 Room Air 04/24/23 09:06 04/24/23 09:06 04/24/23 09:06 04/24/23 09:06 04/24/23 09:06 04/24/23 09:09 Operation Date: 04/24/23 10:40 Proposed Procedures p [id number] lap right inguinal hernia repair with mesh K40.91(Right) - Casper Ortega DO Familial anesthetic complications: none Was Beta Phoebe taken within 24 hours: Yes Was Clonidine taken within 24 hours: N/A Last intake: Intake Last Liquid Date 04/23/23 Last Liquid Time 20:00 Last Solid Date 04/23/23 Last Solid Time 20:00 Social No alcohol and No tobacco Exam alert, oriented x 3, clear to auscultation bilaterally and regular rate & rhythm Airway Submandibular: within normal limits Cervical ROM: within normal limits Mallampati: Class II Dentition: chipped Pulmonary Sleep Apnea CV/HEM Hypertension Metabolic Morbid Obesity [facility] [place]/el Lower Back Pain and Osteoarthritis/DJD Anesthetic Plan ASA status: 3 Anesthesia: General and Regional (specify below) (Right TAP blk) Medications/Allergies Home Medications Medication Instructions Recorded Confirmed Last Taken Type acetaminophen 325 mg tablet 325 - 650 mg PO QID PRN PAIN/FEVER 12/13/20 04/21/23 04/07/23 10:00 History (Tylenol) potassium chloride 10 mEq 10 meq PO PRN PRN Cramps 12/13/20 04/21/23 12/09/20 History capsule,extended release Compression leg wraps #2 ea 03/31/22 03/31/23 Unknown Rx gabapentin 300 mg capsule 300 mg PO TID pain #90 caps 03/09/23 04/21/23 04/21/23 Rx tizanidine 4 mg tablet 4 mg PO BID PRN muscle spasticity 03/09/23 04/21/23 04/03/23 21:00 Rx #60 tabs colchicine (gout) 0.6 mg tablet 0.6 mg PO PRN PRN gout 04/07/23 04/21/23 03/22/21 History allopurinol 100 mg tablet 100 mg PO DAILY 04/21/23 04/21/23 04/20/23 History amlodipine 10 mg tablet 10 mg PO DAILY 04/21/23 04/21/23 04/23/23 History losartan 25 mg tablet 25 mg PO DAILY 04/21/23 04/21/23 04/23/23 History metoprolol tartrate 50 mg tablet 50 mg PO BID 04/21/23 04/21/23 04/23/23 History prednisone 20 mg tablet 40 mg PO DAILY 04/21/23 04/21/23 04/21/23 History torsemide 20 mg tablet 20 mg PO BID 04/21/23 04/21/23 04/21/23 History Allergies Allergy/AdvReac Type Severity Reaction Status Date / Time ketorolac [From Toradol] Allergy ADR/ALGY-Pa Verified 04/21/23 15:16 lpitations topiramate Allergy Unknown Verified 04/21/23 15:16 tramadol Allergy Unknown Verified 04/21/23 15:16 [facility] Anesthesia Medical History Arthritis Bilateral carpal tunnel syndrome Cervical disc disorder with myelopathy of mid-cervical region Displacement of lumbar intervertebral disc Low back pain of over 3 months duration Lumbar disc disease Morbid obesity with BMI of 50.0-59.9, adult Neck pain of over 3 months duration Stenosis of cervical spine with myelopathy Surgical History Status post right inguinal hernia repair Family History Mother SVT (supraventricular tachycardia) Arthritis Hypertension Grandfather Arthritis Dementia Diabetes Hypertension CAD (coronary artery disease) Cancer Grandmother Arthritis Dementia Diabetes Hypertension Cancer Other Lung disease Denies family history of Clotting disorder Chronic kidney disease (CKD) Anesthesia complication Bleeding disorder Stroke Social History Smoking and tobacco/nicotine status: never used tobacco/nicotine Alcohol intake: former Substance/Drug Use: never Household members: spouse and children Marital status: Current occupational status: unemployed Current gender identity: Male Data Anesthesia 04/24/23 09:20 Cardiac Studies: 2 Echocardiogram 12/30/21 Cardiac Event Monitor 10/05/21
[2023-04-24 09:54] LABS: Anion Gap 13.3 (5-19); Blood Urea Nitrogen 14 mg/dL (6-20); Calcium 9.4 mg/dL (8.5-10.5); Carbon Dioxide 27 mmol/L (22-29); Chloride 103 mmol/L (98-107); Glomerular Filtration Rate 81.6 mL/min (90-130); Glucose 118 mg/dL (65-115); Osmolality Calculated 290 mOsm/kg (285-295); Potassium 4.3 mmol/L (3.5-5.1); Sodium 139 mmol/L (136-145)
[2023-04-24] MEDS: ceFAZolin 3,000 MG in sodium chloride 0.9% (plus) 100 ML 200 MG IV (10:34)
[2023-04-24] MEDS: lidocaine-epi 2% 20 mL INJ 3 ML INJECTION (11:34)
--- NOTE | 2023-04-24 12:03 | PM.OP ---
Operative Report Date of procedure: April 24, 2023 Pre-op diagnosis: Recurrent right inguinal hernia Post-op diagnosis: same Procedure done: Laparoscopic repair of recurrent right inguinal hernia with mesh Implants: Extra-large 3D max Bard mesh right Specimens removed/disposition: None Surgeon: Casper Ortega DO Anesthesia: General Estimated blood loss (mL): 5 Complications: None apparent Brief History: This is a very pleasant 42-year-old gentleman who presents my office months after a laparoscopic repair of right inguinal hernia with mesh. He reports that 3 weeks after his hernia repair he was lifting his out of a bathtub and felt a pop and then a new bulge in his right groin. Laparoscopic repair of right inguinal hernia with mesh was indicated. The risk benefits were explained and documented. Procedure: Patient was wheeled into the operative room and placed on the OR table in a supine position. Abdomen was inspected prepped and draped in usual sterile fashion. Time-out was performed and all present were in agreement. A 15 blade scalpel was used to make 1.2 centimeter incision infraumbilically. Combination of sharp and blunt dissection was performed down to the anterior rectus sheath which was opened sharply. The dissecting balloon was then inserted into the space of Retzius and blown up. We put the camera into the port and identified that we were in the correct space. I then placed 2 5 millimeter trocars suprapubically in the midline. I then used endokitners to bluntly dissect in the space of Retzius out laterally. A recurrent right inguinal hernia was identified. Blunt dissection was performed to dissect down the hernia sac until the vas deferens dove medially. An extra-large right 3D max Bard mesh was then placed into the space of Retzius. The mesh was unrolled and tacked once medially at the pubic bone. The mesh laid out nicely over the spermatic cord. Photos were taken of the mesh laid out and the hernia sac laid underneath the mesh. I watched the hernia sac remained in place as insufflation was removed. Incisions were closed with 4-0 Monocryl in a subcuticular interrupted fashion. Skin glue was applied. Patient tolerated the procedure well.
[2023-04-24] MEDS: fentaNYL 50 mcg/mL INJ 2mL IVP (12:58)
--- NOTE | 2023-04-24 13:19 | ANES.PROC ---
Anesthesia Procedures Procedure/Date: 04/24/23 Nerve Block ^: Nerve Block 1: Main Anesthesia: general anesthesia Time Out Performed: Yes Consent: requested by attending/covering physician, from patient, risks and benefits reviewed and patient agrees to proceed Nerve block location: other (TAP bilateral) Anesthesia monitors applied: pulse oximetry, EKG, BP cuff and oxygen Nerve block position: supine Anesthetic Used: ropivicaine 0.5% Amount of anesthesia used (mL): 30 Ultrasound used to: recognize landmarks Nerve Stimulator Used?: No Interscalene/Femoral BLK: 4 stimuplex 21 g needle used for position and inplane approach Injection: neg aspiration of heme Patient Tolerated Procedure: well Complications: none
[2023-04-24] MEDS: HYDROcodone-acetaminophen 7.5-325 mg Tablet 1 TAB PO (13:47)
--- NOTE | 2023-04-24 18:01 | ANE.PACU2 ---
Inpatient post-anesthesia follow up: Airway intact: Yes Vital signs: Temperature 98.3 F Pulse Rate 72 Respiratory Rate 16 Blood Pressure 185/92 Pulse Oximetry 97 Oxygen Delivery Me thod Room Air Oxygen Flow Rate 2 Fraction of Inspir ed Oxygen Hydration adequate: Yes Nausea and vomiting: No Pain level: 3 Mental status: Baseline
== END 2023-04-24 14:38 | disposition home or self-care (01) ==
PROVIDERS: Anesthesiology; PCP Family Medicine; Visit Provider Surgery
PROC: (CPT 49650; principal; 2023-04-24 10:40)
DX: K40.91 Unilateral inguinal hernia, without obstruction or gangrene, recurrent (principal); G47.30 Sleep apnea, unspecified; I10 Essential (primary) hypertension; E66.01 Morbid (severe) obesity due to excess calories; Z68.44 Body mass index [BMI] 60.0-69.9, adult
CPT/HCPCS: 49651; 36415; 80048; A4216; C1781; J0131; J0330; J0690; J1100; J1200; J2405; J2704; J2795; J3010; J3490; J7030

== ENCOUNTER → 2023-07-25 15:10 | Outpatient (BNVA) | payer MEDICAID, SELFPAY | PROVIDERS: PCP Family Medicine; Visit Provider Student in an Organized Health Care Education/Training Program | DX: Z01.818 Encounter for other preprocedural examination (principal) | CPT/HCPCS: 36415; 80053; 81001; 85025 ==

== ENCOUNTER 2023-08-01 10:03 | Outpatient (CLI) | payer MEDICAID, SELFPAY ==
--- NOTE | 2023-08-01 10:30 | US_ITS ---
WS: [id number] TESTICULAR ULTRASOUND HISTORY: concern for hernia COMPARISON: None available. TECHNIQUE: Real-time and color Doppler imaging or utilized to perform a testicular ultrasound. Right testicle: 4.4 cm x 3.0 cm x 2.7 cm. Normal size and echogenicity. No mass or torsion. There is increased Doppler throughout the RIGHT testicle. No mass identified. Small surrounding hydrocele. There is also mild diffuse scrotal wall thickening. Right epididymis: Increased vascularity within the RIGHT epididymis. The epididymis is enlarged. Inguinal canal is patent. Omentum is noted extending to the superior scrotal sac. There is no herniat ion of bowel. Left testicle: 3.6 cm x 2.2 cm x 2.2 cm. Normal size and echogenicity. No mass or torsion. Normal color Doppler is present throughout. Systolic and diastolic velocities are both present. Diffu se scrotal wall thickening. Small hydrocele. Omentum is noted along the inguinal canal. No herniated bowel loops. Left epididymis: Normal epididymis with no increased vascularity. IMPRESSION: 1. Mild acute RIGHT epididymoorchitis. 2. Small bilateral hydroceles. 3. No herniation of bowel loops into the scrotal sac. Omentum is identified in the inguinal canals. 4. No testicular mass.
== END 2023-08-01 10:04 | disposition home or self-care (01) ==
LOC: RAD 10:03
PROVIDERS: PCP Family Medicine; Visit Provider Family Medicine
DX: N45.3 Epididymo-orchitis (principal); N43.3 Hydrocele, unspecified
CPT/HCPCS: 76870

== ENCOUNTER → 2024-02-16 08:14 | Outpatient (BNVA) | payer MEDICAID, SELFPAY | PROVIDERS: PCP Family Medicine; Visit Provider Physician Assistant | DX: M25.561 Pain in right knee (principal); M25.562 Pain in left knee; M17.0 Bilateral primary osteoarthritis of knee; M23.303 Other meniscus derangements, unspecified medial meniscus, right knee; M23.304 Other meniscus derangements, unspecified medial meniscus, left knee | CPT/HCPCS: 73560; 73565 ==

== ENCOUNTER → 2024-03-27 13:40 | Outpatient (BNVA) | payer MEDICAID, SELFPAY | PROVIDERS: PCP Family Medicine; Visit Provider Family Medicine | DX: I89.0 Lymphedema, not elsewhere classified (principal) | CPT/HCPCS: 80053 ==

== ENCOUNTER 2024-04-01 15:45 | Outpatient (CLI) | payer MEDICAID, SELFPAY ==
--- NOTE | 2024-04-01 15:48 | XRR_ITS ---
PROCEDURE INFORMATION: Exam: XR Right Foot Exam date and time: 04/01/2024 4:01 PM Age: 43 years old Clinical indication: Right; Patient HX: RT foot pain and cellulitis, kicked feeder 4 days ago TECHNIQUE: Imaging protocol: Radiologic exam of the right foot. Views: 3 or more views. COMPARISON: CR XR foot RT min 3V* [id number] 05/08/2021 1:52 PM FINDINGS: Bones/joints: Alignment is normal. No acute fracture. No bone erosion. Moderate joint space narrowing and osteophytes at the 1st MTP and calcaneocuboid joints. There are dorsal osteophytes in the midfoot. There is a superior calcaneal enthesophyte of uncertain significance. Soft tissues: There is dorsal soft tissue edema in the foot. No soft tissue gas. No radiodense foreign body. XR/XR foot RT min 3V* [id number] IMPRESSION: 1. No acute osseous findings. 2. Osteoarthritis.
== END 2024-04-01 15:46 | disposition home or self-care (01) ==
LOC: RAD 15:47
PROVIDERS: PCP Family Medicine; Visit Provider Family Medicine
DX: M19.071 Primary osteoarthritis, right ankle and foot (principal); M25.78 Osteophyte, vertebrae; M77.31 Calcaneal spur, right foot
CPT/HCPCS: 73630

== ENCOUNTER → 2024-04-23 10:09 | Outpatient (BNVA) | payer MEDICAID, SELFPAY | PROVIDERS: PCP Family Medicine; Visit Provider Family Medicine | DX: R53.83 Other fatigue (principal) | CPT/HCPCS: 80048 ==

== ENCOUNTER 2024-06-06 10:34 | Outpatient (CLI) | payer MEDICAID, SELFPAY ==
--- NOTE | 2024-06-06 11:00 | USCV_ITS ---
Pankaj Perez Age: 43 Gender: M : 1980 Exam Date: 06/06/2024 10:42 Ordering Phys: Dilshad Bennett MD Technologist: ADRIAN [place] [facility] [place]: FAM HX HISTORY: Diameter (cm) AP x Transverse x Length Velocity (cm/s) Waveform Prox Aorta: x x Mid Aorta: x x Distal Aorta: 2.00 x 2.10 x 97.60 Triphasic Right Iliac Prox: 1.24 x 1.21 x 138.80 Triphasic Left Iliac Prox: 1.04 x 1.11 x 140.90 Triphasic Stent Prox Landing x x Aneurysmal Sac Max x x Lt Lat Sac Dim Rt Lat Sac Dim Stent Dist Landing x x Right Iliac Stent x x Left Iliac Stent x x Right Renal Art Left Renal Art FINDINGS: Extremely TDS due to habitus CONCLUSIONS Technically difficult study No evidence of abdominal aortic or bilateral iliac aneurysm. Henrik Sher MD (Electronically Signed) Final Date: 07 June 2024 11:05 S
== END 2024-06-06 10:35 | disposition home or self-care (01) ==
LOC: RAD 10:34
PROVIDERS: PCP Family Medicine; Visit Provider Family Medicine
DX: I72.9 Aneurysm of unspecified site (principal)
CPT/HCPCS: 93978

== ENCOUNTER → 2024-06-21 08:37 | Outpatient (BNVA) | payer MEDICAID, SELFPAY | PROVIDERS: PCP Family Medicine; Visit Provider Physician Assistant | DX: M17.0 Bilateral primary osteoarthritis of knee (principal); M25.562 Pain in left knee; M23.306 Other meniscus derangements, unspecified meniscus, right knee | CPT/HCPCS: 73560; 73565 ==

== ENCOUNTER 2024-08-28 17:16 | Inpatient (IN) | payer MEDICAID, SELFPAY ==
[2024-08-28] VITALS (27 sets, daily range): BP systolic 95–164; BP diastolic 61–111; PULSE 57–70; RESP 12–123; TEMP 36.7–37.4; O2SAT 90–96; BMI 60.7
--- NOTE | 2024-08-28 17:21 | ECG_ITS ---
[email or web address] Date: 2024-08-28 Pat Name: Pankaj Perez Department: Room: Gender: Male [employer]: : 1980 Requested By: Juan Jose Nazario Order Number: [id number] Francisca MD: Kathe Smith M.D. Measurements Intervals Jackson Rate: 61 P: 7 ID: [id number] QRS: -5 QRSD: 102 T: 12 QT: 424 QTc: 430 Interpretive Statements SINUS RHYTHM WITH FIRST DEGREE AV BLOCK MINIMAL VOLTAGE CRITERIA FOR LVH, CONSIDER NORMAL VARIANT [MEETS CRITERIA IN ONE OF: R(aVL), S(V1), R(V5), R(V5/V6)+S(V1)] Compared to ECG 12/10/2014 21:00:06 First degree AV block now present Electronically Signed On 08-28-2024 21:28:45 CDT by Kathe Smith M.D. [email or web address]
--- NOTE | 2024-08-28 17:21 | CTR_ITS ---
PROCEDURE INFORMATION: Exam: CT Head Without Contrast Exam date and time: 08/28/2024 5:24 PM Age: 43 years old Clinical indication: Stroke-like symptoms; Headache and speech disturbance; Additional info: Symptoms of acute stroke TECHNIQUE: Imaging protocol: Computed tomography of the head without contrast. Radiation optimization: All CT scans at this facility use at least one of these dose optimization techniques: automated exposure control; mA and/or kV adjustment per patient size (includes targeted exams where dose is matched to clinical indication); or iterative reconstruction. Other technique: STROKE PROTOCOL was implemented. COMPARISON: CT head wo con* [id number] 05/08/2021 2:24 PM RADIATION DOSE METRICS: Total DLP (mGy-cm): 1178.78 FINDINGS: Brain: Normal. No hemorrhage. Unremarkable white matter. No mass effect. Cerebral ventricles: No ventriculomegaly. Paranasal sinuses: Mucous retention cysts within right maxillary sinus. Mastoid air cells: Visualized mastoid air cells are well aerated. Bones: Unremarkable. No acute fracture. Soft tissues: Unremarkable. CT/CT head thrombolytic [id number] IMPRESSION: No acute intracranial abnormality. ASSESSMENT: ASPECTS ([place] Stroke Program Early CT Score) is 10.
--- NOTE | 2024-08-28 17:47 | W.ED.NEUROSD ---
HPI - Neuro Symptoms/Deficit General: Chief Complaint: ER Hold Stated Complaint: JOSEPH Time Seen by Provider: 08/28/24 17:21 History of Present Illness: 43-year-old male presents emergency room with a headache and slurred speech began about an hour prior to arrival he is having him difficulty with word finding. He had a similar episode about a year ago mostly resolved. He is not on any anticoagulants. He is complaining of a bit of a headache as well some numbness on the right side of his face. No chest pain or shortness of breath Associated symptoms: Deny chest pain Related Data Home Medications ?Medication ?Instructions ?Recorded ?Confirmed acetaminophen 325 mg tablet 325 - 650 mg PO QID PRN PAIN/FEVER 12/13/20 06/21/24 (Tylenol) potassium chloride 10 mEq 10 meq PO PRN PRN Cramps 12/13/20 06/21/24 capsule,extended release colchicine 0.6 mg tablet 0.6 mg PO PRN PRN gout 04/07/23 06/21/24 Held on 04/24/23. Instructions: Resume on 04/26/23. Previous Rx's ?Medication ?Instructions ?Recorded Compression leg wraps #2 ea 03/31/22 pen needle, diabetic 31 gauge x #100 ea 06/07/23 5/16 (BD Ultra-Fine Short Pen Needle) Knee High Compression Socks 25-35mm #2 ea 06/26/23 nystatin 100,000 unit/gram topical 1 applic topical DAILY #60 grams 08/30/23 powder mupirocin 2 % topical ointment 1 applic topical TID 7 days #22 05/01/24 grams metoprolol tartrate 50 mg tablet See Rx Instructions .Route 05/20/24 .COMPLEX #180 tabs chlorthalidone 25 mg tablet 25 mg PO DAILY #90 tabs 05/23/24 compression socks, x-large #2 ea 06/03/24 celecoxib 100 mg capsule (Celebrex) 100 mg PO BID #60 caps 06/17/24 metformin 500 mg tablet 500 mg PO BID #60 tabs 06/17/24 tizanidine 4 mg tablet See Rx Instructions .Route 06/17/24 .COMPLEX #60 tabs torsemide 20 mg tablet See Rx Instructions .Route 06/17/24 .COMPLEX #180 tabs allopurinol 100 mg tablet See Rx Instructions .Route 08/12/24 .COMPLEX #90 tabs amlodipine 10 mg tablet See Rx Instructions .Route 08/12/24 .COMPLEX #90 tabs losartan 100 mg tablet 100 mg PO DAILY #90 tabs 08/12/24 Allergies Allergy/AdvReac Type Severity Reaction Status Date / Time ketorolac (From Toradol) Allergy ADR/ALGY-Pa Verified 06/21/24 08:50 lpitations topiramate Allergy Unknown Verified 06/21/24 08:50 tramadol Allergy Unknown Verified 06/21/24 08:50 Review of Systems Const: Denies: fever(s) or chills Card: Denies: chest pain Resp: Denies: dyspnea GI: Denies: abdominal pain : Denies: dysuria, urinary frequency or urinary urgency Musc: Denies: neck pain or back pain Skin/Breast: Denies: rash PFSH ED PFSH: Medical History (Updated 08/29/24 @ 06:39 by Juan Jose Garcia DO) Abscess of skin of left ankle Abscess Epididymoorchitis Right testicular pain Indirect left inguinal hernia Right inguinal hernia Ventral hernia, recurrent Indirect right inguinal hernia Dental abscess BMI 60.0-69.9, adult Low testosterone Palpitations Grief Chest pain Testicular pain, right Arthritis Lumbar disc disease Bilateral carpal tunnel syndrome Low back pain of over 3 months duration Neck pain of over 3 months duration Stenosis of cervical spine with myelopathy Morbid obesity with BMI of 50.0-59.9, adult Cervical disc disorder with myelopathy of mid-cervical region Displacement of lumbar intervertebral disc Surgical History History of hernia repair Family History Mother SVT (supraventricular tachycardia) Arthritis Hypertension Grandfather Arthritis Dementia Diabetes Hypertension CAD (coronary artery disease) Cancer Grandmother Arthritis Dementia Diabetes Hypertension Cancer Other Lung disease Denies family history of Clotting disorder Chronic kidney disease (CKD) Anesthesia complication Bleeding disorder Stroke Social History Smoking and tobacco/nicotine status: never used tobacco/nicotine Alcohol intake: former Substance/Drug Use: never Household members: spouse and children Marital status: Current occupational status: unemployed Current gender identity: Male NIH stroke score NIHSS: Level Of Consciousness - 1a: 0 Level Of Consciousness Questions - 1b: Both Correct Level Of Consciousness Commands - 1c: Both Correct Best Gaze - 2: Normal Visual Fowler - 3: No Visual Loss Facial Palsy - 4: Normal Motor Arm Right - 5: No Drift Motor Arm Left - 5: No Drift Motor Leg Right - 6: No Drift Motor Leg Left - 6: No Drift Limb Ataxia - 7: Absent Sensory - 8: Mild To Moderate Loss Best Language - 9: No Aphasia Dysarthia - 10: Mild/Moderate Dysarthia Extinction And Inattention - 11: 0 Score: Total Score: 2 Physical Exam Const: COMMON NORMALS: no acute distress GENERAL APPEARANCE: cooperative and comfortable ORIENTATION/CONSCIOUSNESS: Yes awake, Yes oriented to person, Yes oriented to place and Yes oriented to time HENMT: COMMON NORMALS: normocephalic, atraumatic and hearing grossly normal bilaterally HEAD & SCALP: normocephalic and atraumatic Resp: COMMON NORMALS: normal respiratory effort, No retractions, No use of accessory muscles and clear to auscultation bilaterally AUSCULTATION: clear to auscultation bilaterally Cardio: COMMON NORMALS: regular rate, regular rhythm and No murmurs present (Cardio) RATE: regular rate RHYTHM: regular rhythm GI: COMMON NORMALS: Soft to palpation and No hepatosplenomegaly present AUSCULTATION: Yes normoactive bowel sounds PALPATION: Yes Soft to palpation, No Tenderness to palpation present (GI), No Guarding due to palpation present (GI) and Yes No hepatosplenomegaly present Extremity: COMMON NORMALS: normal to inspection, capillary refill normal, no clubbing, cyanosis or edema, no calf tenderness and no pedal edema Neuro: SENSORIUM/ORIENTATION: Yes oriented to person, Yes oriented to place and Yes oriented to time Skin: COMMON NORMALS: no rashes or lesions noted GENERAL SKIN EXAM: no rashes or lesions noted Course Vital Signs: Vital signs: Vital Signs Temperature 98.2 F 08/29/24 05:01 Pulse Rate 58 L 08/29/24 06:00 Respiratory Rate 18 08/29/24 05:01 Blood Pressure 125/69 08/29/24 05:01 Pulse Oximetry 91 08/29/24 05:01 Oxygen Delivery Me thod Room Air 08/29/24 05:01 Oxygen Flow Rate 2 08/29/24 01:24 MDM - Neuro Symptoms/Deficit Medical Decision Making Dr. Pereira responded to the stroke alert that he felt the patient had at best a stroke score of 1 or 2 does not recommend any thrombolytics. His CT of the head did not show any acute bleed. He is not on any anticoagulants. He is still having some difficulty with word finding and enunciation. He recommends admission to observation. Medical Records I reviewed the patient's medical records. Lab Data I reviewed the patient's lab results. 08/28/24 17:33 08/28/24 17:[address] 08/28/24 17:21 IMPRESSION: No acute intracranial abnormality. ASSESSMENT: ASPECTS (Jennifer Stroke Program Early CT Score) is 10. ADDENDUM: 08/28/24 1808 THIS REPORT CONTAINS FINDINGS THAT MAY BE CRITICAL TO PATIENT CARE. As of 6:07 PM CDT on 08/28/2024 operations center staff confirmed that has received the exam report and indicated that no conference call was necessary to discuss the exam findings. ADDENDUM: 08/28/24 1811 COMMENT: THIS REPORT CONTAINS FINDINGS THAT MAY BE CRITICAL TO PATIENT CARE. The exam findings were verbally communicated by me to Dr. Rojas via telephone conference at 6:10 PM CDT on 08/28/2024. The findings were acknowledged and understood. Laboratory Results WBC 3.22 10^3/uL (3.29-11.43) L 08/28/24 17:33 RBC 4.45 10^6/uL (3.85-5.65) 08/28/24 17:33 Hgb 13.90 g/dL (11.27-16.99) 08/28/24 17:33 Hct 40.1 % (37-53) 08/28/24 17:33 MCV 90.1 fl (82-101) 08/28/24 17:33 MCH 31.2 pg (27-33) 08/28/24 17:33 MCHC 34.7 g/dL (30-55) 08/28/24 17:33 RDW 13.2 % (12.1-15.1) 08/28/24 17:33 Plt Count 111 10^3/cmm (157-399) L 08/28/24 17:33 MPV 10.7 fL (7.4-10.4) H 08/28/24 17:33 Neut % (Auto) 57.6 % 08/28/24 17:33 Lymph % (Auto) 30.7 % 08/28/24 17:33 [place] % (Auto) 9.6 % 08/28/24 17:33 Eos % (Auto) 1.2 % 08/28/24 17:33 Baso % (Auto) 0.6 % 08/28/24 17:33 Neut # (Auto) 1.85 10^3/uL (1.8-7.7) 08/28/24 17:33 Lymph # (Auto) 1.0 10^3/uL (0.8-4.8) 08/28/24 17:33 [place] # (Auto) 0.3 10^3/uL (0.2-0.9) 08/28/24 17:33 Eos # (Auto) 0.0 10^3/uL (0.0-0.8) 08/28/24 17:33 Baso # (Auto) 0.0 10^3/uL (0.0-0.1) 08/28/24 17:33 Nucleated RBC % (auto) 0 % 08/28/24 17: Nucleated RBCs # 0.0 /100WBC 08/28/24 17: PT 13.90 SECONDS (12.1-14.9) 08/28/24 17:33 INR 1.00 (0.8-1.2) 08/28/24 17:33 APTT 27.4 SECONDS (23.9-36.7) 08/28/24 17:33 Sodium 139 mmol/L (136-145) 08/28/24 17:33 Potassium 3.8 mmol/L (3.5-5.1) 08/28/24 17:33 Chloride 98 mmol/L (98-107) 08/28/24 17:33 Carbon Dioxide 28 mmol/L (22-29) 08/28/24 17:33 Anion Gap 16.8 (5-19) 08/28/24 17:33 BUN 25 mg/dL (6-20) H 08/28/24 17:33 Creatinine 1.3 mg/dL (0.7-1.2) H 08/28/24 17:33 GFR Calculation 60.0 mL/min (90-130) L 08/28/24 17:33 Glucose 96 mg/dL (65-115) 08/28/24 17:33 POC Glucose 110 mg/dL (70-110) 08/28/24 18:16 Calculated Osmolality 292 mOsm/kg (285-295) 08/28/24 17:33 Calcium 9.6 mg/dL (8.5-10.5) 08/28/24 17:33 Total Bilirubin 0.6 mg/dL (0.15-1.2) 08/28/24 17:33 AST 47 U/L (0-40) H 08/28/24 17:33 ALT 40 U/L (0-41) 08/28/24 17:33 Alkaline Phosphatase 79 U/L (40-130) 08/28/24 17:33 Total Protein 7.3 g/dL (6.6-8.7) 08/28/24 17:33 Albumin 4.5 g/dL (3.5-5.2) 08/28/24 17:33 Globulin 2.8 g/dL (1.3-4.6) 08/28/24 17:33 Urine Color Yellow (Yellow) 08/28/24 18:24 Urine Appearance Clear (CLEAR) 08/28/24 18:24 Urine pH 6 (5-7) 08/28/24 18:24 Ur Specific [place] 1.010 (1.005-1.030) 08/28/24 18:24 Urine Protein Neg (Negative) 08/28/24 18:24 Urine Glucose (UA) Norm (Normal) 08/28/24 18:24 Urine Ketones Negative (Negative) 08/28/24 18:24 Urine Blood Neg (Negative) 08/28/24 18:24 Urine Nitrate Negative (Negative) 08/28/24 18:24 Urine Bilirubin Neg (Negative) 08/28/24 18:24 Urine Urobilinogen Norm mg/dL (Negative) 08/28/24 18:24 Ur Leukocyte Esterase Negative (Negative) 08/28/24 18:24 Amorphous Sediment Not Reportable 08/28/24 18:24 Urine Opiates Screen Negative ng/mL (Negative) 08/28/24 18:24 Ur Barbiturates Screen Negative ng/mL (Negative) 08/28/24 18:24 Ur Phencyclidine Scrn Negative ng/mL (Negative) 08/28/24 18:24 Ur Amphetamines Screen Negative ng/mL (Negative) 08/28/24 18:24 U Benzodiazepines Scrn Negative ng/mL (Negative) 08/28/24 18:24 Urine Cocaine Screen Negative ng/mL (Negative) 08/28/24 18:24 U Marijuana (THC) Screen Negative ng/mL (Negative) 08/28/24 18:24 All radiology interpretation(s) finalized by discharge Discharge Plan Discharge Patient Disposition: Placed in Observation Admit Provider: Afshin Carter Clinical Impression: Acute CVA (cerebrovascular accident), HTN (hypertension) Coding Level of Care Code 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
--- NOTE | 2024-08-28 17:48 | PM.CONSULT ---
Providers/Reason For Consult Consulting Physician/Specialty*: Mathew Pereira MD neurology and epilepsy Reason for Consult*: Acute care/stroke alert emergency department room #14 Primary Care Provider: Dilshad Bennett MD History of Present Illness History of Present Illness Pankaj Perez is a 43 year old male with a history of obesity and lymphedema, hypertension chest pain and palpitations. The patient stated that he was playing video games with his son and then suddenly experienced numbness in his mouth and tongue and left face and a V1 through V3 distribution associated with trouble talking approximately 1 hour prior to presenting to [facility] emergency department on 08/28/2024. Code stroke was initiated 5:21 PM on 08/28/2024 NIH stroke score = 2 (secondary to intermittent speech production difficulty which at times appears to be inconsistent =1 and reports of left facial numbness and tongue numbness =1) Glucose results pending Stat noncontrast head CT 08/28/2024 negative Since the patient NIH stroke stroke score =2, the patient was not a candidate for intravenous thrombolytics and no intravenous thrombolytics were administered Drug allergies: Toradol which resulted in palpitations Topamax type reaction unknown Tramadol type reaction unknown Current medications: Allopurinol 100 mg to take as instructed Norvasc 10 mg p.o. daily Celebrex 100 mg p.o. twice daily Chlorthalidone 25 mg p.o. daily Colchicine 0.6 mg p.o. as needed for gout Losartan 100 mg p.o. daily Metformin 500 mg p.o. twice daily Metoprolol 50 mg to take as instructed Potassium chloride 10 mEq p.o. as needed cramps Zanaflex 4 mg to take as instructed Torsemide 20 mg to take as instructed Past medical history: Lymphedema Hypertension Indirect left inguinal hernia Degenerative cervicals spinal stenosis Morbid obesity Bilateral carpal tunnel syndrome Low testosterone Ventral hernia, recurrent Indirect right inguinal hernia Gout Stenosis of the cervical spine with myelopathy Displacement of lumbar intervertebral disc Habits: None Family history: Negative for stroke Review of Systems General: Reports: 10 or more systems reviewed and unremarkable except in HPI and below Medications/Allergies Home Medications ?Medication ?Instructions ?Recorded ?Confirmed ?Last Taken ?Type acetaminophen 325 mg tablet 325 - 650 mg PO QID PRN PAIN/FEVER 12/13/20 06/21/24 04/07/23 10:00 History (Tylenol) potassium chloride 10 mEq 10 meq PO PRN PRN Cramps 12/13/20 06/21/24 12/09/20 History capsule,extended release Compression leg wraps #2 ea 03/31/22 06/21/24 Unknown Rx colchicine 0.6 mg tablet 0.6 mg PO PRN PRN gout 04/07/23 06/21/24 03/22/21 History Held on 04/24/23. Instructions: Resume on 04/26/23. pen needle, diabetic 31 gauge x #100 ea 06/07/23 06/21/24 Unknown Rx 5/16 (BD Ultra-Fine Short Pen Needle) Knee High Compression Socks 25-35mm #2 ea 06/26/23 06/21/24 Unknown Rx nystatin 100,000 unit/gram topical 1 applic topical DAILY #60 grams 08/30/23 06/21/24 Unknown Rx powder mupirocin 2 % topical ointment 1 applic topical TID 7 days #22 05/01/24 06/21/24 Unknown Rx grams metoprolol tartrate 50 mg tablet See Rx Instructions .Route 05/20/24 06/21/24 Unknown Rx .COMPLEX #180 tabs chlorthalidone 25 mg tablet 25 mg PO DAILY #90 tabs 05/23/24 06/21/24 Unknown Rx compression socks, x-large #2 ea 06/03/24 06/21/24 Unknown Rx celecoxib 100 mg capsule (Celebrex) 100 mg PO BID #60 caps 06/17/24 06/21/24 Unknown Rx metformin 500 mg tablet 500 mg PO BID #60 tabs 06/17/24 06/21/24 Unknown Rx tizanidine 4 mg tablet See Rx Instructions .Route 06/17/24 06/21/24 Unknown Rx .COMPLEX #60 tabs torsemide 20 mg tablet See Rx Instructions .Route 06/17/24 06/21/24 Unknown Rx .COMPLEX #180 tabs allopurinol 100 mg tablet See Rx Instructions .Route 08/12/24 Unknown Rx .COMPLEX #90 tabs amlodipine 10 mg tablet See Rx Instructions .Route 08/12/24 Unknown Rx .COMPLEX #90 tabs losartan 100 mg tablet 100 mg PO DAILY #90 tabs 08/12/24 Unknown Rx Allergies Allergy/AdvReac Type Severity Reaction Status Date / Time ketorolac (From Toradol) Allergy ADR/ALGY-Pa Verified 06/21/24 08:50 lpitations topiramate Allergy Unknown Verified 06/21/24 08:50 tramadol Allergy Unknown Verified 06/21/24 08:50 PFSH Acute PFSH: Medical History (Updated 08/28/24 @ 18:01 by Mathew Pereira MD) Testicular pain, right Arthritis Lumbar disc disease Bilateral carpal tunnel syndrome Low back pain of over 3 months duration Neck pain of over 3 months duration Stenosis of cervical spine with myelopathy Morbid obesity with BMI of 50.0-59.9, adult Cervical disc disorder with myelopathy of mid-cervical region Displacement of lumbar intervertebral disc Family History Mother SVT (supraventricular tachycardia) Arthritis Hypertension Grandfather Arthritis Dementia Diabetes Hypertension CAD (coronary artery disease) Cancer Grandmother Arthritis Dementia Diabetes Hypertension Cancer Other Lung disease Denies family history of Clotting disorder Chronic kidney disease (CKD) Anesthesia complication Bleeding disorder Stroke Social History Smoking and tobacco/nicotine status: never used tobacco/nicotine Alcohol intake: former Substance/Drug Use: never Household members: spouse and children Marital status: Current occupational status: unemployed Current gender identity: Male Vitals/I&O/Wt Last Vital Signs Pulse 70 08/28/24 17:17 BP 164/87 08/28/24 17:17 Weight last 48 hrs Weight 410 lb Physical Exam Narrative: NIH stroke score = 2 (secondary to intermittent speech production difficulty which at times appears to be inconsistent =1 and reports of left facial numbness and tongue numbness =1) Glucose results pending Stat noncontrast head CT 08/28/2024 negative The patient is alert and oriented x 3. Speech at times patient displays some difficulty producing words but at other times he did not and it was somewhat inconsistent. Pupils 4 mm round reactive to light and accommodation. Extraocular movements intact. There were no nystagmus. Visual yost appear to be full via confrontation. Motor testing 5/5 bilaterally there was no drift. Cranial nerves II through XII revealed patient reporting subjective decrease sensation in his mouth and tongue and left face in a V1 through V3 distribution. There was no obvious facial weakness. There was no extinction on double sensory stimulation. There was no signs of any ataxia. Throat clear. Lungs clear. Heart regular rhythm and rate. Extremities revealed lower extremity lymphedema, chronic A&P Assessment and plan (1) Left facial numbness: Impression: 1. Acute onset of tongue and left facial numbness 08/28/2024 1 hour prior to presenting to the [facility] emergency department. Stroke alert initiated at 5:21 PM on 08/28/2024. NIH stroke score =2. Since the patient is NIH stroke score =2, the patient was not a candidate for intravenous thrombolytics and no intravenous thrombolytics were administered. Plan: 1. Agree with admission 2. Neurochecks and vital signs per NIH stroke protocol 3. Recommend discontinuing Celebrex since nonsteroidals other than aspirin have been reported to potentially increase risk for heart disease and stroke 4. Recommend starting aspirin 81 mg p.o. every morning with food first dose now and start a cholesterol lowering agent per NIH stroke protocol if no contraindications 5. Recommend cardiac evaluation to assess for cardiac causes for possible TIA/stroke symptoms 6. Stroke education/stroke pamphlet to be given to patient 7. Recommend occupational therapy, speech therapy and physical therapy consults 8. Recommend obtaining carotid duplex study to assess for carotid or vertebral artery stenosis PDMP PDMP Reviewed: Not Reviewed Consult Attestations Medical Necessity Statement: The patient was evaluated by neurology for acute care/stroke alert emergency department room #14 Coding Level of Care Code 04369 Diagnoses Left facial numbness R20.0
--- NOTE | 2024-08-28 17:53 | PM.HP ---
Providers/Chief Complaint Primary Care Provider: Dilshad Bennett MD Chief Complaint: JOSEPH History of Present Illness Pankaj Perez is a very pleasant 43 year old male with past medical history significant for hypertension, chronic pain, arthritis, carpal tunnel, and prior stroke who presents to the emergency department for strokelike symptoms. Patient reports onset at 4 PM today. He describes his symptoms as left-sided facial numbness and difficulty speaking. Notes that he did have tremors initially and those have improved. Endorses associated headache and light sensitivity to left eye. He denies other focal neurological deficits. Denies fevers or chills. He does note increased stress this afternoon associate with a family member schoolwork. He reports a history of remote stroke. He does not recall the year of the stroke. He does note that at that time his stroke symptoms were similar. Code stroke was activated in the ED. Head CT was negative for acute findings. Neurology has evaluated recommending admission for further workup. Review of Systems Narrative: A complete review of systems was obtained and is negative except as stated in HPI. Medications/Allergies Home Medications ?Medication ?Instructions ?Recorded ?Confirmed ?Last Taken ?Type acetaminophen 325 mg tablet 325 - 650 mg PO QID PRN PAIN/FEVER 12/13/20 06/21/24 04/07/23 10:00 History (Tylenol) potassium chloride 10 mEq 10 meq PO PRN PRN Cramps 12/13/20 06/21/24 12/09/20 History capsule,extended release Compression leg wraps #2 ea 03/31/22 06/21/24 Unknown Rx colchicine 0.6 mg tablet 0.6 mg PO PRN PRN gout 04/07/23 06/21/24 03/22/21 History Held on 04/24/23. Instructions: Resume on 04/26/23. pen needle, diabetic 31 gauge x #100 ea 06/07/23 06/21/24 Unknown Rx 5/16 (BD Ultra-Fine Short Pen Needle) Knee High Compression Socks 25-35mm #2 ea 06/26/23 06/21/24 Unknown Rx nystatin 100,000 unit/gram topical 1 applic topical DAILY #60 grams 08/30/23 06/21/24 Unknown Rx powder mupirocin 2 % topical ointment 1 applic topical TID 7 days #22 05/01/24 06/21/24 Unknown Rx grams metoprolol tartrate 50 mg tablet See Rx Instructions .Route 05/20/24 06/21/24 Unknown Rx .COMPLEX #180 tabs chlorthalidone 25 mg tablet 25 mg PO DAILY #90 tabs 05/23/24 06/21/24 Unknown Rx compression socks, x-large #2 ea 06/03/24 06/21/24 Unknown Rx celecoxib 100 mg capsule (Celebrex) 100 mg PO BID #60 caps 06/17/24 06/21/24 Unknown Rx metformin 500 mg tablet 500 mg PO BID #60 tabs 06/17/24 06/21/24 Unknown Rx tizanidine 4 mg tablet See Rx Instructions .Route 06/17/24 06/21/24 Unknown Rx .COMPLEX #60 tabs torsemide 20 mg tablet See Rx Instructions .Route 06/17/24 06/21/24 Unknown Rx .COMPLEX #180 tabs allopurinol 100 mg tablet See Rx Instructions .Route 08/12/24 Unknown Rx .COMPLEX #90 tabs amlodipine 10 mg tablet See Rx Instructions .Route 08/12/24 Unknown Rx .COMPLEX #90 tabs losartan 100 mg tablet 100 mg PO DAILY #90 tabs 08/12/24 Unknown Rx Allergies Allergy/AdvReac Type Severity Reaction Status Date / Time ketorolac (From Toradol) Allergy ADR/ALGY-Pa Verified 06/21/24 08:50 lpitations topiramate Allergy Unknown Verified 06/21/24 08:50 tramadol Allergy Unknown Verified 06/21/24 08:50 PFSH Acute PFSH: Medical History (Updated 08/28/24 @ 18:09 by Afshin Carter MD) Abscess of skin of left ankle Abscess Epididymoorchitis Right testicular pain Indirect left inguinal hernia Right inguinal hernia Ventral hernia, recurrent Indirect right inguinal hernia Dental abscess BMI 60.0-69.9, adult Low testosterone Palpitations Grief Chest pain Testicular pain, right Arthritis Lumbar disc disease Bilateral carpal tunnel syndrome Low back pain of over 3 months duration Neck pain of over 3 months duration Stenosis of cervical spine with myelopathy Morbid obesity with BMI of 50.0-59.9, adult Cervical disc disorder with myelopathy of mid-cervical region Displacement of lumbar intervertebral disc Surgical History History of hernia repair Family History Mother SVT (supraventricular tachycardia) Arthritis Hypertension Grandfather Arthritis Dementia Diabetes Hypertension CAD (coronary artery disease) Cancer Grandmother Arthritis Dementia Diabetes Hypertension Cancer Other Lung disease Denies family history of Clotting disorder Chronic kidney disease (CKD) Anesthesia complication Bleeding disorder Stroke Social History Smoking and tobacco/nicotine status: never used tobacco/nicotine Alcohol intake: former Substance/Drug Use: never Household members: spouse and children Marital status: Current occupational status: unemployed Current gender identity: Male Vitals/I&O/Wt Last Vital Signs Temp 99.3 F 08/28/24 17:40 Pulse 59 L 08/28/24 17:50 Resp 14 08/28/24 17:50 BP 145/67 08/28/24 17:50 Pulse Ox 90 08/28/24 17:50 Weight last 48 hrs Weight 185.973 kg Physical Exam Narrative: General: Patient is awake. Appears ill. Head: Normocephalic. Atraumatic. EOM intact. Neck: No JVD. Cardiovascular: RRR. No gallops. No murmurs. Lungs: Clear to auscultation, no use of accessory muscles, no crackles or wheezes. Skin: No jaundice. No rashes. Abdomen: Normal bowel sounds, abdomen soft and nontender. Extremities: No cyanosis or clubbing. Lymphedema of lower extremities. Musculoskeletal: No swollen or erythematous joints. Neurological: Moves all 4 extremities. No myoclonus. Decreased sensation left face. Otherwise cranial nerves II through XII are grossly intact. Word finding difficulty with expressive aphasia noted. Data 08/28/24 17:33 08/28/24 17:33 A&P Assessment and plan (1) Stroke-like episode: (2) Hypertension: Qualifiers: Hypertension type: primary hypertension Qualified Code(s): I10 - Essential (primary) hypertension (3) Lymphedema of both lower extremities: (4) Gout: (5) Chronic back pain: Plan Strokelike symptoms with aphasia and left-sided facial numbness - Neurology evaluated, appreciate further recommendations X-serial neurological exams - CT head negative for acute findings - Check echo with bubble - Further imaging as per neuro reccs - Permissive hypertension - Telemetry monitoring - ST/OT/PT History of hypertension - Hold Norvasc, losartan, and chlorthalidone - Okay to continue metoprolol as to avoid beta-radha withdrawal History of gout without exacerbation - Continue allopurinol Lymphedema - Continue home diuretics Chronic pain - Analgesics as needed - Will hold NSAID for now given thrombocytopenia Thrombocytopenia - Hold home NSAID - Monitor for bleeding DVT prophylaxis: Lovenox CODE STATUS: Full code PDMP PDMP Reviewed: Not Reviewed Attestations Medical Necessity Statement*: Patient presents with strokelike symptoms with expected hospitalization not to across 2 midnights for further stroke workup. Coding Level of Care Code Acute Code for Chg Fwd Diagnoses Stroke-like episode R29.90 Primary hypertension I10 Hypertension type: primary hypertension Lymphedema of both lower extremities I89.0 Gout M10.9 Chronic back pain M54.9; G89.29
[2024-08-28 17:54] LABS: Basophils % 0.6 %; Eosinophils % 1.2 %; Hematocrit 40.1 % (37-53); Lymphocytes % 30.7 %; Mean Corpuscular HGB Conc 34.7 g/dL (30-55); Mean Corpuscular Hemoglobin 31.2 pg (27-33); Mean Corpuscular Volume 90.1 fl (82-101); Mean Platelet Volume 10.7 fL (7.4-10.4); Monocytes # 0.3 10^3/uL (0.2-0.9); Monocytes % 9.6 %; Neutrophils # 1.85 10^3/uL (1.8-7.7); Neutrophils % 57.6 %; Nucleated Red Blood Cells % 0 %; Platelet Count 111 10^3/cmm (157-399); Red Blood Count 4.45 10^6/uL (3.85-5.65); Red Cell Distribution Width 13.2 % (12.1-15.1); White Blood Count 3.22 10^3/uL (3.29-11.43)
[2024-08-28 18:04] LABS: Partial Thromboplastin Time 27.4 SECONDS (23.9-36.7)
[2024-08-28 18:13] LABS: Alanine Aminotransferase 40 U/L (0-41); Albumin Level 4.5 g/dL (3.5-5.2); Alkaline Phosphatase 79 U/L (40-130); Anion Gap 16.8 (5-19); Aspartate Amino Transferase 47 U/L (0-40); Blood Urea Nitrogen 25 mg/dL (6-20); Calcium 9.6 mg/dL (8.5-10.5); Carbon Dioxide 28 mmol/L (22-29); Chloride 98 mmol/L (98-107); Creatinine Clr Calc Pharmacy 107.0658; Globulin 2.8 g/dL (1.3-4.6); Glucose 96 mg/dL (65-115); Osmolality Calculated 292 mOsm/kg (285-295); Potassium 3.8 mmol/L (3.5-5.1); Sodium 139 mmol/L (136-145); Total Bilirubin 0.6 mg/dL (0.15-1.2); Total Protein 7.3 g/dL (6.6-8.7)
[2024-08-28 18:20] LABS: Glucose Point of Care 110 mg/dL (70-110)
--- NOTE | 2024-08-28 18:21 | USCV_ITS ---
Chris Pankaj Age: 43 Gender: M : 1980 Exam Date: 08/28/2024 19:30 Ordering Phys: Afshin Carter MD Technologist: AYAAN [place] [facility] [place]: Morbid Obesity 5ft 9in 410lbs. order says r/o wall motion abnormalities BP: 99 / 60 HR: 59 Rhythm: Sinus Technical Quality: Adequate with OPTISON MEASUREMENTS (Male / Female) Normal Values 2D ECHO LV Diastolic Diameter PLAX 4.9 cm 4.2 - 5.9 / 3.9 - 5.3 cm IVS Diastolic Thickness 1.6 cm 0.6 - 1.0 / 0.6 - 0.9 cm IVS Systolic Thickness 1.9 cm LVPW Diastolic Thickness 2.1 cm 0.6 - 1.0 / 0.6 - 0.9 cm LVPW Systolic Thickness 1.7 cm LVOT Diameter 2.4 cm LV Ejection Fraction 2D Teich 60.2 % LV Ejection Fraction MOD 4C 60.0 % LV Ejection Fraction MOD 2C 49.1 % LV Ejection Fraction 2C AL 48.7 % LA Diameter 3.2 cm Aorta at Sinotubular Diameter 3.3 cm IVC Diameter 1.6 cm M-MODE LA Ao Ratio MM 1.0 AV Cusp Separation MM 2.3 cm DOPPLER AV Peak Velocity 94.0 cm/s LVOT Peak Velocity 98.0 cm/s AV Area Cont Eq vti 4.7 cm squared AV Area Cont Eq pk 4.6 cm squared MV Peak Velocity 69.0 cm/s MV Area PHT 2.8 cm squared Mitral E to A Ratio 0.9 TV Peak E Velocity 63.0 cm/s PV Peak Velocity 104.0 cm/s FINDINGS Left Ventricle Normal LV size with ejection fraction of 60%. Mild concentric left ventricular hypertrophy.Grade I/IV diastolic dysfunction (abnormal relaxation filling pattern), normal to mildly elevated filling pressures. (Echo contrast - Optison was used to delineate the endocardium and to estimate the LV ejection fraction) Right Ventricle Possibly of normal size ejection fraction Right Atrium Right atrium not well visualized. Left Atrium Appears to be of normal size. Mitral Valve No gross abnormalities noted Aortic Valve No gross abnormalities noted Tricuspid Valve Tricuspid valve not well visualized. Pulmonic Valve Mild pulmonary valve regurgitation. Pericardium No pericardial effusion. Aorta Normal aortic annulus size. IVC Inferior vena cava not visualized. CONCLUSIONS Normal LV size with ejection fraction of 60%. Mild concentric left ventricular hypertrophy.Grade I/IV diastolic dysfunction (abnormal relaxation filling pattern), normal to mildly elevated filling pressures. (Echo contrast - Optison was used to delineate the endocardium and to estimate the LV ejection fraction). Possibly normal chamber sizes. Mild pulmonary valve regurgitation. There is no pericardial effusion. Technically difficult study because of the poor ultrasonic window Dr Kathe Smith MD FAC (Electronically Signed) Final Date: 30 August 2024 11:03 S
--- NOTE | 2024-08-28 18:26 | USCV_ITS ---
Chris Pankaj Age: 43 Gender: M : 1980 Exam Date: 08/28/2024 20:23 Ordering Phys: Afshin Carter MD Technologist: AYAAN Exam Location: [facility] [place] Indication: Morbid Obesity 5ft 9in 410 lbs. Order says Evaluate for carotid stenosis. Risk Factors: Morbid Obesity 5ft 9in 410 lbs, DM2 Previous Vascular Surgery: None Right Brachial BP: 140 / 63 Left Brachial BP: / Right Left Velocity (cm/s) Spectral Plaque Velocity (cm/s) Spectral Plaque Syst/Diast Broadening Syst/Diast Broadening 131.20/19.90 Min Homo Prox CCA 146.20/ 13.80 Min Homo 107.50/14.40 Min Hetro Mid CCA 133.50/ 17.40 Min Hetro 96.00/ 10.70 Min Hetro Distal CCA 144.40/ 21.00 Min Hetro 71.30/ 15.30 Min Hetro Prox ICA 57.30 / 17.40 Min Hetro 53.70/ 15.30 Min Hetro Mid ICA 68.20 / 21.00 Min Homo 49.30/ 18.60 Min Homo Distal ICA 66.40 / 17.40 Min Hetro 83.30 None Hetro ECA 99.10 Min Homo 0.70 ICA/CCA 0.50 Antegrade Vertebral Antegrade 40.60/ 7.60 cm/s 50.10/ 4.70 cm/s Bi Subclavian Tri 160.8 140.8 0 0 CONCLUSIONS Right ICA stenosis <50%. Mild atheromatous plaque right carotid bulb/ICA. Left ICA stenosis <50%. Mild atheromatous plaque left carotid bulb/ICA. Normal antegrade Doppler flow noted in the right vertebral artery. Normal antegrade Doppler flow noted in the left vertebral artery. Henrik Sher MD (Electronically Signed) Final Date: 29 August 2024 11:46 S
[2024-08-28 18:37] LABS: Add Urine Microscopic? NO
[2024-08-28 18:46] LABS: Amphetamines Screen Urine Negative (Negative); Barbiturates Screen Urine Negative (Negative); Benzodiazepines Screen Urine Negative (Negative); Cocaine Screen Urine Negative (Negative); Opiate Screen Urine Negative (Negative); PCP Screen Urine Negative (Negative); THC Screen Urine Negative (Negative)
[2024-08-28 18:49] LABS: Bilirubin Urine Neg (Negative); Blood Urine Neg (Negative); Charge for UA Resulting for Rev; Glucose Urine UA Norm (Normal); Ketones Urine Negative (Negative); Leukocyte Esterase Urine Negative (Negative); Nitrate Urine Negative (Negative); Protein Urine Neg (Negative); Urine Appearance Clear (CLEAR); Urine Color Yellow (Yellow); Urobilinogen Urine Norm (Negative); pH Urine 6 (5-7)
[2024-08-28] MEDS: acetaminophen 325 mg Tablet 650 MG PO (20:45)
[2024-08-28] MEDS: atorvastatin 40 mg Tablet PO (20:46)
[2024-08-28] MEDS: enoxaparin 40 mg/0.4 mL Syringe SUBCUT (20:46)
[2024-08-28] MEDS: sodium chloride 0.9% 1,000 ML 100 ML IV (20:50)
[2024-08-29] VITALS (11 sets, daily range): BP systolic 110–159; BP diastolic 59–84; PULSE 54–90; RESP 17–21; TEMP 36.5–36.9; O2SAT 88–97
[2024-08-29 06:21] LABS: Glucose Point of Care 107 mg/dL (70-110)
[2024-08-29] MEDS: sodium chloride 0.9% 1,000 ML 100 ML IV (06:42)
[2024-08-29] MEDS: metoprolol tartrate 50 mg Tablet PO ×2 (08:29→17:10)
[2024-08-29] MEDS: allopurinol 100 mg Tablet PO (08:29)
[2024-08-29] MEDS: TORSEmide 20 mg Tablet 40 MG PO (08:30)
[2024-08-29] MEDS: aspirin 81 mg EC Tablet PO (08:31)
[2024-08-29 11:24] LABS: Glucose Point of Care 119 mg/dL (70-110)
[2024-08-29] MEDS: acetaminophen 325 mg Tablet 650 MG PO ×2 (13:04→19:52)
[2024-08-29 16:36] LABS: Glucose Point of Care 108 mg/dL (70-110)
--- NOTE | 2024-08-29 17:23 | P.PN_ITS ---
Subjective 2 Subjective: Patient reports he feels much better this morning. Reports some persistence of facial numbess and improved speech. Starting to work with speech therapy on exam. Denies other new complaints. Medications: Reviewed: Yes Vitals/I&O/Wt Last Vital Signs Temp 98.1 F 08/29/24 15:00 Pulse 75 08/29/24 15:00 Resp 21 H 08/29/24 15:00 BP 143/70 08/29/24 15:00 Pulse Ox 94 08/29/24 15:00 O2 Del Method Room Air 08/29/24 15:00 O2 Flow Rate 2 08/29/24 01:24 08/29/24 08/29/24 08/29/24 06:59 14:59 22:59 Intake Total 986.667 / 986.667 593.333 / 593.333 Output Total Balance 985.667 / 985.667 593.333 / 593.333 Weight last 48 hrs Weight 186.2 kg Weight 187.742 kg Weight 186.426 kg Weight 185.973 kg Physical Exam 2 Narrative: General: Patient is awake. Alert. Very pleasant. Head: Normocephalic. Atraumatic. EOM intact. Neck: No JVD. Cardiovascular: RRR. No gallops. No murmurs. Lungs: Clear to auscultation, no use of accessory muscles, no crackles or wheezes. Skin: No jaundice. No rashes. Abdomen: Normal bowel sounds, abdomen soft and nontender. Extremities: No cyanosis or clubbing. Lymphedema of lower extremities. Musculoskeletal: No swollen or erythematous joints. Neurological: Moves all 4 extremities. No myoclonus. Verbal responses still slightly slowed, but much improved as compared to prior exam. Data 08/28/24 17:33 08/28/24 17:33 A&P Assessment and plan (1) Stroke-like episode: (2) Hypertension: Qualifiers: Hypertension type: primary hypertension Qualified Code(s): I10 - Essential (primary) hypertension (3) Lymphedema of both lower extremities: (4) Gout: (5) Chronic back pain: Plan Strokelike symptoms with aphasia and left-sided facial numbness - Neurology evaluated, appreciate further recommendations - Echo with bubble pending - Caroitd doppler ultrasound pending - End permissive hypertension - Telemetry monitoring - ST/OT/PT History of hypertension - Restart Norvasc, losartan, and chlorthalidone; continue BB History of gout without exacerbation - Continue allopurinol Lymphedema - Continue home diuretics Chronic pain - Analgesics as needed Thrombocytopenia - Hold home NSAID - Monitor for bleeding DVT prophylaxis: Lovenox CODE STATUS: Full code PDMP PDMP Reviewed: Not Reviewed Attestations 2 Medical Necessity Statement*: Pt requires ongoing hospitalization for stroke work up Coding Level of Care Code Acute Code for Chg Fwd Diagnoses Stroke-like episode R29.90 Primary hypertension I10 Hypertension type: primary hypertension Lymphedema of both lower extremities I89.0 Gout M10.9 Chronic back pain M54.9; G89.29
[2024-08-29] MEDS: atorvastatin 40 mg Tablet PO (19:52)
[2024-08-29] MEDS: enoxaparin 40 mg/0.4 mL Syringe SUBCUT (19:52)
[2024-08-29 20:30] LABS: Glucose Point of Care 161 mg/dL (70-110)
[2024-08-30 03:59] VITALS: BP 136/69; PULSE 92; RESP 18; TEMP 36.6; O2SAT 93
[2024-08-30 06:00] VITALS: PULSE 61
[2024-08-30 07:54] VITALS: BP 123/66; PULSE 57; RESP 14; TEMP 36.5; O2SAT 96
[2024-08-30] MEDS: acetaminophen 325 mg Tablet 650 MG PO (08:44)
[2024-08-30] MEDS: chlorthalidone 25 mg Tablet PO (08:44)
[2024-08-30] MEDS: amlodipine 10 mg Tablet PO (08:44)
[2024-08-30] MEDS: losartan 50 mg Tablet 100 MG PO (08:45)
[2024-08-30] MEDS: TORSEmide 20 mg Tablet 40 MG PO (08:45)
[2024-08-30] MEDS: allopurinol 100 mg Tablet PO (08:45)
[2024-08-30] MEDS: aspirin 81 mg EC Tablet PO (08:45)
[2024-08-30] MEDS: metoprolol tartrate 50 mg Tablet PO (08:45)
[2024-08-30 09:18] LABS: LAB Peripheral Smear Sent for Review
[2024-08-30 09:20] LABS: Basophils % 0.9 %; Eosinophils % 1.8 %; Hematocrit 38.3 % (37-53); Lymphocytes # 0.9 10^3/uL (0.8-4.8); Lymphocytes % 39.9 %; Mean Corpuscular HGB Conc 34.5 g/dL (30-55); Mean Corpuscular Hemoglobin 31.6 pg (27-33); Mean Corpuscular Volume 91.6 fl (82-101); Monocytes # 0.1 10^3/uL (0.2-0.9); Neutrophils # 1.11 10^3/uL (1.8-7.7); Neutrophils % 50.9 %; Nucleated Red Blood Cells % 0 %; Platelet Count 94 10^3/cmm (157-399); Red Blood Count 4.18 10^6/uL (3.85-5.65); White Blood Count 2.18 10^3/uL (3.29-11.43)
[2024-08-30 09:36] LABS: Estmated Average Glucose 108; Hemoglobin A1C 5.4 % (4.0-6.0)
[2024-08-30 09:43] LABS: Alanine Aminotransferase 35 U/L (0-41); Albumin Level 4.3 g/dL (3.5-5.2); Alkaline Phosphatase 77 U/L (40-130); Anion Gap 16.6 (5-19); Aspartate Amino Transferase 41 U/L (0-40); Blood Urea Nitrogen 25 mg/dL (6-20); Calcium 9.4 mg/dL (8.5-10.5); Carbon Dioxide 26 mmol/L (22-29); Chloride 100 mmol/L (98-107); Chol HDL Ratio 4.96 mg/dL (1.0-5.00); Cholesterol 134 mg/dL (0-200); Creatinine Clr Calc Pharmacy 141.6693; Globulin 2.6 g/dL (1.3-4.6); Glomerular Filtration Rate 72.7 mL/min (90-130); Glucose 160 mg/dL (65-115); HDL Cholesterol 27 mg/dL (60-100); LDL Cholesterol Calculated 65 mg/dL (50-129); LDL HDL Ratio 2.41 RATIO (0.00-3.22); Osmolality Calculated 296 mOsm/kg (285-295); Potassium 3.6 mmol/L (3.5-5.1); Sodium 139 mmol/L (136-145); Total Bilirubin 0.6 mg/dL (0.15-1.2); Total Protein 6.9 g/dL (6.6-8.7); Triglycerides 210 mg/dL (0-150)
--- NOTE | 2024-08-30 11:14 | PM.DCS ---
Discharge Providers Date of Admission: 08/29/24 18:34 Date of Discharge: August 30, 2024 Attending Provider at Admission: Afshin Carter MD Attending Provider at Discharge: Afshin Carter MD Consults: Neurology Primary Care Provider: Dilshad Bennett MD Diagnoses at Discharge Discharge Diagnosis (1) Stroke-like episode: Status: Acute (2) Hypertension: Status: Acute Qualifiers: Hypertension type: primary hypertension Qualified Code(s): I10 - Essential (primary) hypertension (3) Lymphedema of both lower extremities: Status: Acute (4) Gout: Status: Acute (5) Chronic back pain: Status: Acute Reason for Visit Reason for Visit: JOSEPH Hospital Course Hospital Course Pankaj Perez is a very pleasant 43 year old male with past medical history significant for hypertension, chronic pain, arthritis, carpal tunnel, and prior stroke who presents to the emergency department for strokelike symptoms. Neurology evaluated the patient and recommend admission for further work up. TNKase not administered at the recommendation of neurology. Patient started on aspirin and statin. CT head negative for acute stroke. Carotid doppler ultrasound showed mild carotid stenosis. Transthoracic echocardiogram showed no acute findings. Patient worked with therapy services with significant improvement in symptomatology. Patient was also found to have bicytopenia with leukopenia and thrombocytopenia. Patient instructed to hold home Celebrex until further work up and discussion with PCP can take place. Peripheral smear is pending at time of discharge. Physical Exam Narrative: General: Patient is awake. Alert. Conversational. In bedside chair. Head: Normocephalic. Atraumatic. EOM intact. Neck: No JVD. Cardiovascular: RRR. No gallops. No murmurs. Lungs: Clear to auscultation, no use of accessory muscles, no crackles or wheezes. Skin: No jaundice. No rashes. Abdomen: Normal bowel sounds, abdomen soft and nontender. Extremities: No cyanosis or clubbing. Lymphedema of lower extremities. Musculoskeletal: No swollen or erythematous joints. Neurological: Moves all 4 extremities. No myoclonus. Verbal responses improved. Discharge Data Studies Completed and Pending Completed Studies During Hospitalization Category Date Time Status CT head thrombolytic [id number] Stat Cat Scan 08/28/24 17:21 Completed CV. echo w/w bubble cont [id number] Stat Ultrasound 08/28/24 18:21 Completed US carotid duplex bilateral [CV carotid duplex BI* Ultrasound 08/28/24 18:26 Completed [id number]] Stat Radiology Impressions Head CT 08/28/24 17:21 IMPRESSION: No acute intracranial abnormality. ASSESSMENT: ASPECTS ([place] Stroke Program Early CT Score) is 10. ADDENDUM: 08/28/24 1808 THIS REPORT CONTAINS FINDINGS THAT MAY BE CRITICAL TO PATIENT CARE. As of 6:07 PM CDT on 08/28/2024 operations center staff confirmed that has received the exam report and indicated that no conference call was necessary to discuss the exam findings. ADDENDUM: 08/28/24 1811 COMMENT: THIS REPORT CONTAINS FINDINGS THAT MAY BE CRITICAL TO PATIENT CARE. The exam findings were verbally communicated by me to Dr. Rojas via telephone conference at 6:10 PM CDT on 08/28/2024. The findings were acknowledged and understood. Laboratory Results WBC 2.18 10^3/uL (3.29-11.43) L 08/30/24 08:51 RBC 4.18 10^6/uL (3.85-5.65) 08/30/24 08:51 Hgb 13.20 g/dL (11.27-16.99) 08/30/24 08:51 Hct 38.3 % (37-53) 08/30/24 08:51 MCV 91.6 fl (82-101) 08/30/24 08:51 MCH 31.6 pg (27-33) 08/30/24 08:51 MCHC 34.5 g/dL (30-55) 08/30/24 08:51 RDW 13.0 % (12.1-15.1) 08/30/24 08:51 Plt Count 94 10^3/cmm (157-399) L 08/30/24 08:51 MPV 11.0 fL (7.4-10.4) H 08/30/24 08:51 Neut % (Auto) 50.9 % 08/30/24 08:51 Lymph % (Auto) 39.9 % 08/30/24 08:51 [place] % (Auto) 6.0 % 08/30/24 08:51 Eos % (Auto) 1.8 % 08/30/24 08:51 Baso % (Auto) 0.9 % 08/30/24 08:51 Neut # (Auto) 1.11 10^3/uL (1.8-7.7) L 08/30/24 08:51 Lymph # (Auto) 0.9 10^3/uL (0.8-4.8) 08/30/24 08:51 [place] # (Auto) 0.1 10^3/uL (0.2-0.9) L 08/30/24 08:51 Eos # (Auto) 0.0 10^3/uL (0.0-0.8) 08/30/24 08:51 Baso # (Auto) 0.0 10^3/uL (0.0-0.1) 08/30/24 08:51 Nucleated RBC % (auto) 0 % 08/30/24 08:51 Nucleated RBCs # 0.0 /100WBC 08/30/24 08:51 Peripher Smr Path Cons Sent for review 08/30/24 08:51 PT 13.90 SECONDS (12.1-14.9) 08/28/24 17:33 INR 1.00 (0.8-1.2) 08/28/24 17:33 APTT 27.4 SECONDS (23.9-36.7) 08/28/24 17:33 Sodium 139 mmol/L (136-145) 08/30/24 08:51 Potassium 3.6 mmol/L (3.5-5.1) 08/30/24 08:51 Chloride 100 mmol/L (98-107) 08/30/24 08:51 Carbon Dioxide 26 mmol/L (22-29) 08/30/24 08:51 Anion Gap 16.6 (5-19) 08/30/24 08:51 BUN 25 mg/dL (6-20) H 08/30/24 08:51 Creatinine 1.1 mg/dL (0.7-1.2) 08/30/24 08:51 GFR Calculation 72.7 mL/min (90-130) L 08/30/24 08:51 Glucose 160 mg/dL (65-115) H 08/30/24 08:51 POC Glucose 161 mg/dL (70-110) H 08/29/24 20:24 Estimat Average Glucose 108 08/30/24 08:51 Hemoglobin A1c 5.4 % (4.0-6.0) 08/30/24 08:51 Calculated Osmolality 296 mOsm/kg (285-295) H 08/30/24 08:51 Calcium 9.4 mg/dL (8.5-10.5) 08/30/24 08:51 Total Bilirubin 0.6 mg/dL (0.15-1.2) 08/30/24 08:51 AST 41 U/L (0-40) H 08/30/24 08:51 ALT 35 U/L (0-41) 08/30/24 08:51 Alkaline Phosphatase 77 U/L (40-130) 08/30/24 08:51 Total Protein 6.9 g/dL (6.6-8.7) 08/30/24 08:51 Albumin 4.3 g/dL (3.5-5.2) 08/30/24 08:51 Globulin 2.6 g/dL (1.3-4.6) 08/30/24 08:51 Triglycerides 210 mg/dL (0-150) H 08/30/24 08:51 Cholesterol 134 mg/dL (0-200) 08/30/24 08:51 LDL Cholesterol, Calc 65 mg/dL (50-129) 08/30/24 08:51 HDL Cholesterol 27 mg/dL (60-100) L 08/30/24 08:51 LDL/HDL Ratio 2.41 RATIO (0.00-3.22) 08/30/24 08:51 Cholesterol/HDL Ratio 4.96 mg/dL (1.0-5.00) 08/30/24 08:51 Urine Color Yellow (Yellow) 08/28/24 18:24 Urine Appearance Clear (CLEAR) 08/28/24 18:24 Urine pH 6 (5-7) 08/28/24 18:24 Ur Specific [place] 1.010 (1.005-1.030) 08/28/24 18:24 Urine Protein Neg (Negative) 08/28/24 18:24 Urine Glucose (UA) Norm (Normal) 08/28/24 18:24 Urine Ketones Negative (Negative) 08/28/24 18:24 Urine Blood Neg (Negative) 08/28/24 18:24 Urine Nitrate Negative (Negative) 08/28/24 18:24 Urine Bilirubin Neg (Negative) 08/28/24 18:24 Urine Urobilinogen Norm mg/dL (Negative) 08/28/24 18:24 Ur Leukocyte Esterase Negative (Negative) 08/28/24 18:24 Amorphous Sediment Not Reportable 08/28/24 18:24 Urine Opiates Screen Negative ng/mL (Negative) 08/28/24 18:24 Ur Barbiturates Screen Negative ng/mL (Negative) 08/28/24 18:24 Ur Phencyclidine Scrn Negative ng/mL (Negative) 08/28/24 18:24 Ur Amphetamines Screen Negative ng/mL (Negative) 08/28/24 18:24 U Benzodiazepines Scrn Negative ng/mL (Negative) 08/28/24 18:24 Urine Cocaine Screen Negative ng/mL (Negative) 08/28/24 18:24 U Marijuana (THC) Screen Negative ng/mL (Negative) 08/28/24 18:24 Vitals Last Vital Signs Temp 97.7 F 08/30/24 07:54 Pulse 57 L 08/30/24 07:54 Resp 14 08/30/24 07:54 BP 123/66 08/30/24 07:54 Pulse Ox 96 08/30/24 07:54 O2 Del Method Room Air 08/30/24 07:54 O2 Flow Rate 2 08/29/24 01:24 Discharge Plan Discharge Patient Disposition: Home Condition: Stable Prescriptions: New atorvastatin 40 mg Tablet 40 mg PO BEDTIME 30 Days Qty: 30 0RF aspirin 81 mg Tablet,Delayed Release (Dr/Ec) 81 mg PO DAILY 30 Days Qty: 30 0RF Continued (DME) Compression leg wraps large See Rx Instructions .Route .MEDSUPPLY Qty: 2 5RF Rx Instructions: As directed (DME) Knee High Compression Socks 25-35mm See Rx Instructions .Route .MEDSUPPLY Qty: 2 0RF Rx Instructions: As directed by [employer] 2 pairs q6 months for life metformin 500 mg tablet 500 mg PO BID Qty: 60 2RF tizanidine 4 mg tablet See Rx Instructions .ROUTE .COMPLEX Qty: 60 3RF Dose Instruction: TAKE 1 TABLET BY MOUTH TWICE DAILY NEEDED FOR MUSCLE SPASTICITY Rx Instructions: TAKE 1 TABLET BY MOUTH TWICE DAILY NEEDED FOR MUSCLE SPASTICITY (DME) compression socks, x-large Misc See Rx Instructions .Route Qty: 2 11RF Rx Instructions: As directed 25-35 millimeters of mercury knee high compression socks mupirocin 2 % ointment 1 applic topical TID 7 Days Qty: 22 0RF (DME) pen needle, diabetic [BD Ultra-Fine Short Pen Needle] 31 gauge x 5/16 needle See Rx Instructions .Route Qty: 100 0RF Rx Instructions: use to inject once a week. nystatin 100,000 unit/gram powder 1 applic topical DAILY Qty: 60 3RF metoprolol tartrate 50 mg tablet See Rx Instructions .ROUTE .COMPLEX Qty: 180 1RF Dose Instruction: take ONE tablet BY MOUTH TWICE DAILY Rx Instructions: take ONE tablet BY MOUTH TWICE DAILY chlorthalidone 25 mg tablet 25 mg PO DAILY Qty: 90 1RF torsemide 20 mg tablet See Rx Instructions .ROUTE .COMPLEX Qty: 180 1RF Dose Instruction: take TAKE 2 TABLETS BY MOUTH EVERY MORNING and ONE at NOON Rx Instructions: take TAKE 2 TABLETS BY MOUTH EVERY MORNING and ONE at NOON amlodipine 10 mg tablet See Rx Instructions .ROUTE .COMPLEX Qty: 90 1RF Dose Instruction: TAKE 1 TABLET BY MOUTH EVERY DAY Rx Instructions: TAKE 1 TABLET BY MOUTH EVERY DAY allopurinol 100 mg tablet See Rx Instructions .ROUTE .COMPLEX Qty: 90 1RF Dose Instruction: TAKE 1 TABLET BY MOUTH EVERY DAY Rx Instructions: TAKE 1 TABLET BY MOUTH EVERY DAY losartan 100 mg tablet 100 mg PO DAILY Qty: 90 1RF acetaminophen [Tylenol] 325 mg Tablet 325 - 650 mg PO QID PRN (Reason: PAIN/FEVER) No Action celecoxib [Celebrex] 100 mg capsule 100 mg PO BID Qty: 60 3RF Discharge Orders: Discharge Order (Routine); Ordered 08/30/24 Ordered By: Afshin Carter Referrals: Dilshad Bennett MD [Primary Care Provider] - 09/18/24 2:00 pm Discharge Diet: Advance as tolerated and Usual diet Discharge Activity: Resume usual activity and Increase activity as tolerated Patient Instructions: Aspirin (By mouth), Atorvastatin (By mouth), Ischemic Stroke (DC), Chronic Hypertension (DC), Opioid Safety, Stroke Stoplight Activity Restrictions/Additional Instructions: 1. Take medications as prescribed. 2. Follow up with PCP within one week. Your peripheral smear result is pending at time of discharge. Discharge Attestations Time Spent in Discharge Care*: greater than 30 min Quality Metrics Clinical Quality Measures [ No reported AMI, CVA or VTE this stay] Coding Level of Care Code Acute Code for Chg Fwd Diagnoses Stroke-like episode R29.90 Primary hypertension I10 Hypertension type: primary hypertension Lymphedema of both lower extremities I89.0 Gout M10.9 Chronic back pain M54.9; G89.29
[2024-08-30 11:57] VITALS: BP 117/71; PULSE 66; RESP 18; TEMP 36.4; O2SAT 93
[2024-08-30 12:23] VITALS: BP 117/71; PULSE 66; RESP 16; TEMP 36.4; O2SAT 93
[2024-08-30] MEDS: perflutren protein-a microsphr 0.22 mg/mL SDV 3 mL IV (17:13)
== END 2024-08-30 12:51 | disposition home or self-care (01) | DRG 65 ==
LOC: ER 17:49 → ER IP 18:34 → MEDSURG 21:01
PROVIDERS: Admitting Provider Internal Medicine; Emergency Provider Family Medicine; PCP Family Medicine; Visit Provider Internal Medicine
DX: I63.9 Cerebral infarction, unspecified (principal); Z68.44 Body mass index [BMI] 60.0-69.9, adult; R47.01 Aphasia; R20.2 Paresthesia of skin; R29.702 NIHSS score 2; E66.01 Morbid (severe) obesity due to excess calories; I10 Essential (primary) hypertension; G89.29 Other chronic pain; M19.90 Unspecified osteoarthritis, unspecified site; Z86.73 Personal history of transient ischemic attack (TIA), and cerebral infarction without residual deficits; M10.9 Gout, unspecified; R60.0 Localized edema; D69.6 Thrombocytopenia, unspecified
CPT/HCPCS: 36415; 36416; 70450; 80053; 80061; 80306; 80503; 81003; 82962; 83036; 85025; 85610; 85730; 92523; 92610; 93005; 93880; 96372; 97116; 97161; 97165; 99285; C8929; G0378; J1650; J7030; J9999

== ENCOUNTER → 2024-10-07 15:36 | Outpatient (BNVA) | payer MEDICAID, SELFPAY | PROVIDERS: PCP Family Medicine; Visit Provider Family Medicine | DX: D72.819 Decreased white blood cell count, unspecified (principal) | CPT/HCPCS: 80503; 85025 ==

== ENCOUNTER 2024-12-09 09:56 | Outpatient (CLI) | payer MEDICAID, SELFPAY ==
--- NOTE | 2024-12-09 10:08 | XR_ITS ---
WS: [id number] LUMBAR SPINE TECHNIQUE: 3 views of the lumbar spine CLINICAL INFORMATION: DISABILITY DETERMINATIONS FINDINGS: Small riblets at T12. Five yla-xja-hgftmar lumbar vertebral bodies. Mild lumbar curve convex LEFT. Mild chronic anterior wedging T12, L1, and L2. Mild disc space narrowing at these levels. Mild disc space narrowing L5-S1. Minimal anterior hypertrophic changes. Visualized sacroiliac joints are normal. Normal visualized soft tissues. Partially visualized bowel gas pattern is normal. XR/XR lumbar spine 2-3V* [id number] IMPRESSION: 1. Mild chronic anterior wedging T12, L1, and L2. 2. Mild disc space narrowing at T12-L1, L1-L2, L2-L3, and L5-S1. 3. Mild anterior hypertrophic changes. 4. Mild lumbar curve convex LEFT.
--- NOTE | 2024-12-09 10:08 | XR_ITS ---
WS: [id number] KNEE LEFT TECHNIQUE: 2 views of the left knee CLINICAL INFORMATION: DISABILITY DETERMINATIONS COMPARISON: 06/21/2024 FINDINGS: Moderate to advanced joint space narrowing medial joint compartment. Hypertrophic changes along the joint line. Moderate degenerative narrowing of the patellofemoral articulation. Lateral joint compartment is better preserved. No acute fractures. Prepatellar and suprapatellar soft tissue edema. Small s uprapatellar effusion. XR/XR knee LT 1-2V [id number] IMPRESSION: Moderate to advanced joint space narrowing medial joint compartment. Kellgren-Moreno Classification: grade 3 (moderate): moderate multiple osteoph ytes, definite narrowing of joint space and some sclerosis and possible deformi ty of bone ends
== END 2024-12-09 09:57 | disposition home or self-care (01) ==
LOC: RAD 10:06
PROVIDERS: PCP Family Medicine; Visit Provider Family Medicine
DX: S22.080A Wedge compression fracture of T11-T12 vertebra, initial encounter for closed fracture (principal); S32.010A Wedge compression fracture of first lumbar vertebra, initial encounter for closed fracture; S32.020A Wedge compression fracture of second lumbar vertebra, initial encounter for closed fracture; X58.XXXA Exposure to other specified factors, initial encounter; M51.369 Other intervertebral disc degeneration, lumbar region without mention of lumbar back pain or lower extremity pain; M51.34 Other intervertebral disc degeneration, thoracic region; M89.38 Hypertrophy of bone, other site; M41.86 Other forms of scoliosis, lumbar region; M25.861 Other specified joint disorders, right knee; M17.12 Unilateral primary osteoarthritis, left knee; M22.2X2 Patellofemoral disorders, left knee; M25.462 Effusion, left knee
CPT/HCPCS: 72100; 73560

== ENCOUNTER → 2025-02-19 13:38 | Outpatient (BNVA) | payer MEDICAID, SELFPAY | PROVIDERS: PCP Family Medicine | DX: M19.072 Primary osteoarthritis, left ankle and foot (principal); M77.32 Calcaneal spur, left foot; M79.89 Other specified soft tissue disorders; Q70.22 Fused toes, left foot; W23.1XXA Caught, crushed, jammed, or pinched between stationary objects, initial encounter | CPT/HCPCS: 73630 ==

== ENCOUNTER 2025-03-27 21:11 | Observation (INO) | payer MEDICAID, SELFPAY ==
[2025-03-27 21:12] VITALS: BP 138/73; PULSE 72; RESP 16; TEMP 36.4; O2SAT 98; BMI 57.6
--- NOTE | 2025-03-27 21:19 | XRR_ITS ---
PROCEDURE INFORMATION: Exam: XR Chest Exam date and time: 03/27/2025 9:19 PM Age: 44 years old Clinical indication: Pain; Angina pectoris; Additional info: Chest pain/shortness of breath TECHNIQUE: Imaging protocol: Radiologic exam of the chest. Views: 1 view. COMPARISON: CR XR chest 1V portable [id number] 12/13/2020 4:40 PM FINDINGS: Lungs: Unremarkable. No consolidation. Pleural spaces: Unremarkable. No pleural effusion. No pneumothorax. Heart/Mediastinum: Mild cardiomegaly. Bones/joints: Unremarkable. XR/XR chest 1V portable [id number] IMPRESSION: No acute cardiopulmonary findings.
--- NOTE | 2025-03-27 21:19 | ECG_ITS ---
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 Measurements Intervals [place] Rate: 75 P: -6 TN: 181 QRS: 27 QRSD: 92 T: 29 QT: 382 QTc: 427 Interpretive Statements SINUS RHYTHM WITH OCCASIONAL SUPRAVENTRICULAR PREMATURE COMPLEXES LOW QRS VOLTAGE IN PRECORDIAL LEADS [QRS DEFLECTION < 1.0 mV IN CHEST LEADS] Compared to ECG 08/28/2024 17:18:52 Low QRS voltage now present First degree AV block no longer present Electronically Signed On 03-29-2025 13:00:42 CONTAINER WASHER by Kathe Smith M.D. [id number]
--- OUTSIDE RECORDS SUMMARY | 2025-03-27 21:21 | XMS_ITS | Patient Health Record ---
Author Organization [facility] Address [address] [place] [address] Care Team Providers Care Ore Crusher Name Role Phone Leatha Anand Primary Care Provider Allergies Allergen (clinical drug ingredient) Drug/Non Drug Allergy documented on EMR Reaction Allergy Type Onset Date Status tramadol Tramadol irregular heartbeat Drug Allergy Active Reason For Referral No Information Medications Medication SIG (Take, Route, Frequency, Duration) Notes Start Date End Date Status cloNIDine HCl 0.1 MG Tablet 1-2 tablet Orally Once a day Not-Taking Potassium Chloride ER 10 MEQ Tablet Extended Release 1 tablet with food Orally Twice a day; Duration: 30 days Not-Taking Nabumetone 500 MG Tablet 1 tablet Orally Twice a day; Duration: 30 days Not-Takin g Allopurinol 100 MG Tablet 1 tablet Orall y Once a day; Duration: 30 days Not-Takin g Furosemide 40 MG Tablet 1 tablet Orally twice daily; Duration: 30 days Not-Taking Carvedilol 6.25 MG Tablet 1 tablet with food Orally Twice a day; Duration: 30 days Not-Taking Social History Tobacco Use: Social History Observation Description Date Details (start date - stop date) Never Smoker NA - NA Social History Depression Screening Social Info Question Answer Notes PHQ-9 Little interest or pleasure in doing thin gs Not at all Feeling down, depressed, or hopeless Not at all Trouble falling or staying asleep, or sleeping t oo much Not at all Feeling tired or having little energy Not at all Poor appetite or overeating Not at all Feeling bad about yourself, or that you are a failure, or have let yourself or your family down Not at all Trouble concentrating on thi ngs, such as reading the newspaper or watching television Not at all Moving or speaking so slowly that other people could have noticed. Or the opposite ? being so fidgety or restless that you have been moving around a lot more than usual Not at all Thoughts that you would be b jaziel off , or of hurting yourself in some way Not at all Total Score 0 Drugs/Alcohol: Social Info Question Answer Notes Alcohol Screen (Audit-C) Did you have a drink containing alcohol in the past year? No Points 0 Interpretation Negative Drugs Have you used drugs other than those for medical reasons in the past 12 months? No Caffeine Intake: 1-2 cups per day Tobacco Use: Social Info Question Answer Notes xTobacco Use/Smoking Are you a nonsmoker Tobacco use other than smoking: Are you an other tobacco user? No Additional Details Category Social Info Options Details Drugs/Alcohol: Do you smoke marijuana? Admits edibles when in severe pain and could not see a doctor d/t no insurance. Do you drink alcohol? No Problems Problem Type SNOMED Code ICD Code Onset Dates Problem Status W/U Status Risk Notes Problem Essential hypertension (48896304) Essential hypertension (I10) Active confirmed Problem Chronic gouty arthritis (61018086) Chronic gout without tophus, unspecified cause, unspecified site ([id number].9XX0) Active confirmed Problem Paroxysmal supraventricular tachycardia (22206482) Supraventricular tachycardia, paroxysmal (I47.1) Active confirmed Problem Morbid obesity (445522148) Morbid obesity (278.01) 2010 Active confirmed [id number]- Problem Low back pain (993110296) Low back pain (724.2) 2010 Active confirmed [id number]- Problem Hypercholesterolemia (73556626) Hypercholesterolemia (272.0) 2010 Active confirmed [id number]- Problem Benign essential hypertension (4846525) Mild hypertension (401.1) 2010 Active confirmed [id number]- Problem Vitamin D deficiency (72690204) Vitamin D deficiency (268.9) 2010 Problem resolved confirmed [id number]- Problem Lesion of ulnar nerv e (948958365) 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) 2010 Problem resolved confirmed [id number]- Problem Open wound of foot (316522455) Open wound on the foot (892.0) 2010 Problem resolved confirmed [id number]- Problem Lateral epicondyliti s (732640586) Lateral epicondylitis (726.32) 2010 Problem resolved confirmed [id number]- Problem Acute maxillary sinusitis (63215053) Acute sinusitis, maxillary (461.0) 2010 Problem resolved confirmed [id number]- Problem Lateral epicondyliti s (951206133) Tennis elbow (726.32) 2010 Problem resolved confirmed [id number]- Problem Knee pain (6893055859) Knee pain (719.46) 2010 Problem resolved confirmed [id number]- Problem Mitral valve disease (91755684) Mitral valve disease (394.9) 2010 Active confirmed [id number]- Plan Of Treatment No Information Insurance Providers Payer Name Payer Address Payer Phone Subscriber Number Group Number Insured Name Patient Relationship to Insured Coverage Start Date Coverage End Date [facility] Medicaid Replacement [address] [facility] [place] [phone] [id number] Pankaj Perez Self - patient is the insured Medical (General) History Medical History History ICD Code Hypertension SVT left knee pain bilateral LLE gout (toes, ankles, knees, and elbows) 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
--- OUTSIDE RECORDS SUMMARY | 2025-03-27 21:21 | XMS_ITS | Clinical Summary ---
Author Organization [facility] Address [address] [place] [address] Phone Care Team Providers Care Oliver Filter Operator Name Role Phone Unavailable Primary Care Provider Unavailabl e Allergies Active Allergy Reactions Criticality Noted Date Comments Ketorolac Arrhythmia High 12/28/2020 Tramadol Arrhythmia High 01/01/2021 heart beat funny Medications carvediloL (Coreg) 12.5 mg tablet Take 6.25 mg by mouth 2 times daily. Active furosemide (LASIX) 20 mg tablet Take 20 mg by mouth daily. Active allopurinoL (ZYLOPRIM) 100 mg tablet Take 100 mg by mouth daily. Active nabumetone (RELAFEN) 500 mg tablet Take 500 mg by mouth 2 times daily. Active ibuprofen (MOTRIN) 200 mg tablet Take 400 mg by mouth every 6 hours as needed for Pain, Mild. Active potassium chloride (KLOR-CON) 10 mEq Extended Release tablet Take 10 mEq by mouth. Active HYDROcodone-maria luz taminophen (NORCO) 5-325 mg tabletIndicatio ns:Acute pain of right knee Take 1 Tablet by mouth every 4 hours as needed for Pain. To be dispersed here. Max Daily Amount: 6 Tablets 4 Tablet 1 Active cloNIDine HCL (CATAPRES) 0.1 mg tablet 1-2 p.o. every 4 hours as needed for blood pressure greater than 160. To be dispersed here. 4 Tablet 1 Active amoxicillin (AMOXIL) 875 mg tablet Take 875 mg by mouth every 12 hours. 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 [employer] Gender Identity Not on file Sexual Orientation Not on file Last Filed Vital Signs Vital Sign Reading Time Taken Comments Blood Pressure 155/78 01/01/2021 1:29 PM CDT Pulse - - Temperature 36.2 C (97.1 F) 01/01/2021 1:29 PM CDT Respiratory Rate 20 01/01/2021 1:29 PM CDT Oxygen Saturation 96% 01/01/2021 1:29 PM CDT Inhaled Oxygen Concentration - - Weight 172 kg (379 lb 3.2 oz) 01/01/2021 11:48 A M CDT Height 172.7 cm (5' 8 ) 01/01/2021 11:48 AM CDT Body Mass Index 57.66 01/01/2021 11:48 AM CDT Plan of Treatment Health Maintenance Due Date Last Done Comments DTAP/TDAP/TD VACCINES (1 - Tdap) 11/08/1998 HEPATITIS B VACCINES (1 of 3 - 19+ 3-dose series) 10/21 HPV VACCINES (1 - 3-dose SCDM series) 11/08/2006 COLORECTAL SCREENING 11/08/2024 Colorectal Cancer Screening 11/08/2024 FIT-DNA Q 3 years 11/08/2024 FIT/FOBT Q 1 year 11/08/2024 Flex Sig/CT Colonography Q 5 years 11/08/2024 INFLUENZA VACCINE (#1) 2024 [place]
--- NOTE | 2025-03-27 21:31 | ED_ITS ---
HPI - Chest Pain 2 General: Chief Complaint: Chest Pain Stated Complaint: Chest Pain, SOB, Light headed, weak Time Seen by Provider: 03/27/25 21:27 History of Present Illness: 44yo M w/pmhx of CVA, HTN, HLD, diastoli c dysfunction presents with cc/of chest pain and shortness of breath. Patient states that since yesterday, he has been experiencing left-sided, pressure-like sensation with radiation to his neck. He states that pain is worse with exertion, he has been feeling short of breath and has been feeling lightheaded and dizzy with exertion. Patient has not had diaphoresis but has had a decreased appetite and mild nausea. No fever, cough, hemoptysis, syncope, vomiting, abdominal pain, diarrhea, dysuria. Patient has chronic lower extremity edema for which she takes torsemide, feels that it is a little worse today. Patient has not been a smoker. Related Data Home Medications ?Medication ?Instructions ?Recorded ?Confirmed acetaminophen 325 mg tablet 325 - 650 mg PO QID PRN PA IN/FEVER 12/13/20 03/24/25 (Tylenol) Previous Rx's ?Medication ?Instructions ?Recorded Compression leg wraps #2 ea 03/31/22 pen needle, diabetic 31 gauge x #100 ea 06/07/2310/04 (BD Ultra-Fine Short Pen Needle) Knee High Compression Socks 25-35mm #2 ea 06/26/23 nystatin 100,000 unit/gram topical 1 applic topical DA LUIS #60 grams 08/30/23 powder mupirocin 2 % topical ointment 1 applic topical TID 7 days #22 05/01/24 grams compression socks, x-large #2 ea 06/03/24 aspirin 81 mg tablet,delayed 81 mg PO DAILY #90 tabs 0 09/04/24 release chlorthalidone 25 mg tablet 25 mg PO DAILY #90 tabs metoprolol tartrate 50 mg tablet See Rx Instructions . Route 11/11/24 .COMPLEX #180 tabs allopurinol 100 mg tablet See Rx Instructions .Route 0 01/31/25 .COMPLEX #90 tabs amlodipine 10 mg tablet See Rx Instructions .Route 0 01/31/25 .COMPLEX #90 tabs celecoxib 100 mg capsule (Celebrex) 100 mg PO BID #60 caps 01/31/25 losartan 100 mg tablet 100 mg PO DAILY #90 tabs 05/15 tizanidine 4 mg tablet See Rx Instructions .Route 0 01/31/25 .COMPLEX #60 tabs torsemide 20 mg tablet See Rx Instructions .Route 0 01/31/25 .COMPLEX #180 tabs cetirizine 10 mg tablet (Zyrtec) 10 mg PO DAILY #30 ta bs 02/19/25 fluticasone propionate 50 1 spray intranasal BID #16 g valentin 02/19/25 mcg/actuation nasal spray,suspension tirzepatide (weight loss) 5 mg/0.5 5 mg (0.5 mL) SUBCU T .qweekly #2 mL 02/24/25 mL subcutaneous pen injector atorvastatin 40 mg tablet 40 mg PO BEDTIME #90 tabs Allergies Allergy/AdvReac Type Severity Reaction Status Date / Time ketorolac (From Toradol) Allergy ADR/ALGY-Pa Verified 03/24/25 14:31 lpitations lactose Allergy ADR-Diarrhe Verified 03/24/25 14:31 a topiramate Allergy Unknown Verified 03/24/25 14:31 tramadol Allergy Unknown Verified 03/24/25 14:31 [facility] ED 2 PFS: Medical History (Updated 03/27/25 @ 23:46 by Stacia Kebede MD) BMI 50.0-59.9, adult Leukopenia Stroke-like episode Left facial numbness Abscess of skin of left ankle Abscess Epididymoorchitis Right testicular pain Indirect left inguinal hernia Right inguinal hernia Ventral hernia, recurrent Indirect right inguinal hernia Dental abscess BMI 60.0-69.9, adult Low testosterone Palpitations Grief Chest pain Testicular pain, right Arthritis Lumbar disc disease Bilateral carpal tunnel syndrome Low back pain of over 3 months duration Neck pain of over 3 months duration Stenosis of cervical spine with myelopathy Morbid obesity with BMI of 50.0-59.9, adult Cervical disc disorder with myelopathy of mid-cervical region Displacement of lumbar intervertebral disc Surgical History History of hernia repair Family History Mother SVT (supraventricular tachycardia) Arthritis Hypertension Grandfather Arthritis Dementia Diabetes Hypertension CAD (coronary artery disease) Cancer Grandmother Arthritis Dementia Diabetes Hypertension Cancer Other Lung disease Denies family history of Clotting disorder Chronic kidney disease (CKD) Anesthesia complication Bleeding disorder Stroke Social History Smoking and tobacco/nicotine status: never used tobacco/nicotine Alcohol intake: former Substance/Drug Use: never Household members: spouse and children Marital status: Current occupational status: unemployed Current gender identity: Male Physical Exam 2 Narrative: EXAM NARRATIVE: Vital signs were reviewed. Patient is alert and oriented. +Morbid obesity. Patient is breathing comfortably, no increased WOB or accessory muscle use. SpO2 is above 95% on RA. Patient has clear lungs b/l, no rhonchi, wheezing or crackles. No hypotension or tachycardia. Abdomen is soft, nondistended and nontender. Patient is moving all extremities, no deformity or gross injury. No lower extremity asymmetry. Patient has chronic venous stasis dermatitis and LE edema. Course 2 Vital Signs: Vital signs: Vital Signs Temperature 97.5 F L 03/27/25 21:12 Pulse Rate 77 03/27/25 23:11 Respiratory Rate 16 03/27/25 23:06 Blood Pressure 132/76 03/27/25 23:11 Pulse Oximetry 94 03/27/25 23:11 Oxygen Delivery Me thod Room Air 03/27/25 23:11 MDM - Chest Pain Medical Decision Making 44yo M with several risk factors for heart disease presents with a chief complaint of chest pain and shortness of breath since yesterday. It is left- sided, dull, aching, radiating to the left neck, exertional. Differential diagnosis includes, but is not limited to, ACS, myocarditis, pericarditis, pneumonia, viral upper respiratory infection, PE, GERD, other. On initial exam, patient is hemodynamically stable nontoxic appearing. EKG was personally reviewed and interpreted and shows normal sinus rhythm with a heart rate of 75, normal axis, normal intervals, no ST segment elevation. Patient was evaluate CBC, BMP, troponin, BNP, EKG, chest x-ray. Prior to arrival, patient has taken 481mg of ASA. He was treated with sublingual nitroglycerin, morphine and Zofran. Patient has a normal white blood cell count. He is not anemic. Patient has elevated creatinine which is increased from previous. He has a normal anion gap, I suspect this may be chronic worsening of his kidney disease. He has initial normal troponin and normal BNP. He is feeling better after morphine but still complains of shortness of breath and discomfort in the chest. He is moderate risk per HEART score but I feel that his history is very concerning. Presentation is consistent w/unstable angina. Patient was admitted for ACS r/o. Lab Data 03/27/25 22:20 03/27/25 22:20 Radiology Impressions Chest X-Ray 03/27/25 21:19 IMPRESSION: No acute cardiopulmonary findings. Laboratory Results WBC 4.34 10^3/uL (3.29-11.43) 03/27/25 22:20 RBC 4.21 10^6/uL (3.85-5.65) 03/27/25 22:20 Hgb 13.50 g/dL (11.27-16.99) 03/27/25 22:20 Hct 38.4 % (37-53) 03/27/25 22:20 MCV 91.2 fl (82-101) 03/27/25 22:20 MCH 32.1 pg (27-33) 03/27/25 22:20 MCHC 35.2 g/dL (30-55) 03/27/25 22:20 RDW 13.6 % (12.1-15.1) 03/27/25 22:20 Plt Count 87 10^3/cmm (157-399) L 03/27/25 22:20 MPV 11.1 fL (7.4-10.4) H 03/27/25 22:20 Neut % (Auto) 66.3 % 03/27/25 22:20 Lymph % (Auto) 25.3 % 03/27/25 22:20 Twiggs % (Auto) 7.1 % 03/27/25 22:20 Eos % (Auto) 0.9 % 03/27/25 22:20 Baso % (Auto) 0.2 % 03/27/25 22:20 Neut # (Auto) 2.87 10^3/uL (1.8-7.7) 03/27/25 22:20 Lymph # (Auto) 1.1 10^3/uL (0.8-4.8) 03/27/25 22:20 [place]gs # (Auto) 0.3 10^3/uL (0.2-0.9) 03/27/25 22:20 Eos # (Auto) 0.0 10^3/uL (0.0-0.8) 03/27/25 22:20 Baso # (Auto) 0.0 10^3/uL (0.0-0.1) 03/27/25 22:20 Nucleated RBC % (auto) 0 % 03/27/25 22:20 Nucleated RBCs # 0.0 /100WBC 03/27/25 22:20 Sodium 142 mmol/L (136-145) 03/27/25 22:20 Potassium 3.9 mmol/L (3.5-5.1) 03/27/25 22:20 Chloride 104 mmol/L (98-107) 03/27/25 22:20 Carbon Dioxide 25 mmol/L (22-29) 03/27/25 22:20 Anion Gap 16.9 (5-19) 03/27/25 22:20 BUN 21 mg/dL (6-20) H 03/27/25 22:20 Creatinine 1.5 mg/dL (0.7-1.2) H 03/27/25 22:20 GFR Calculation 50.6 mL/min (90-130) L 03/27/25 22:20 Glucose 101 mg/dL (65-115) 03/27/25 22:20 Calculated Osmolality 297 mOsm/kg (285-295) H 03/27/25 22:20 Calcium 9.7 mg/dL (8.5-10.5) 03/27/25 22:20 Troponin T Baseline 9 ng/L (0-15) 03/27/25 22:20 NT-Pro-B Natriuret Pep < 36 pg/mL (0-125) 03/27/25 22:20 All radiology interpretation(s) finalized by discharge EKG Data EKG 2: Interpretation: Normal sinus rhythm with sinus arrhythmia, normal axis, normal intervals, heart rate of 73, no STEMI. EKG 1: Interpretation: Normal sinus rhythm with a heart rate of 75, normal axis, normal intervals, no STEMI. Discharge Plan Discharge Patient Disposition: Admitted As Inpatient Clinical Impression: Angina pectoris, unstable, CKD (chronic kidney disease), Heart failure Condition: Stable Coding Level of Care Code ED Licensed Practical Vocational Nurse for Chg Fwd Heart Score HEART Score Components History: Highly Suspicious EKG: Normal Age: Less than 45 yrs Risk Factors: >/=3 Risk Factors Risk Factor Details: HLD, HTN, CVA, obesity Troponin: Baseline Trop <16 ng/L HEART Score RESULT HEART Score: 4
[2025-03-27 22:10] VITALS: BP 146/59; PULSE 75; O2SAT 99
[2025-03-27 22:41] LABS: Hematocrit 38.4 % (37-53); Hemoglobin 13.50 g/dL (11.27-16.99); Mean Corpuscular HGB Conc 35.2 g/dL (30-55); Mean Corpuscular Hemoglobin 32.1 pg (27-33); Mean Corpuscular Volume 91.2 fl (82-101); Nucleated Red Blood Cells % 0 %; Platelet Count 87 10^3/cmm (157-399); Red Blood Count 4.21 10^6/uL (3.85-5.65); White Blood Count 4.34 10^3/uL (3.29-11.43)
[2025-03-27] MEDS: ondansetron 2 mg/ML SDV 2 mL 4 MG IVP (22:44)
[2025-03-27 22:50] VITALS: BP 155/70; PULSE 80; O2SAT 94
[2025-03-27 23:00] LABS: Troponin(5th) Baseline 9 ng/L (0-15)
[2025-03-27 23:06] VITALS: RESP 16
[2025-03-27] MEDS: morphine 4 mg/mL SDV 1 mL IVP (23:06)
[2025-03-27 23:10] LABS: Anion Gap 16.9 (5-19); Blood Urea Nitrogen 21 mg/dL (6-20); Calcium 9.7 mg/dL (8.5-10.5); Carbon Dioxide 25 mmol/L (22-29); Chloride 104 mmol/L (98-107); Creatinine Clr Calc Pharmacy 99.5568; Glucose 101 mg/dL (65-115); NT Pro B Type Natriuretic Pept < 36 pg/mL (0-125); Osmolality Calculated 297 mOsm/kg (285-295); Potassium 3.9 mmol/L (3.5-5.1); Sodium 142 mmol/L (136-145)
[2025-03-27 23:11] VITALS: BP 132/76; PULSE 77; O2SAT 94
--- NOTE | 2025-03-27 23:19 | ECG_ITS ---
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
--- NOTE | 2025-03-27 23:48 | PM.HP ---
Providers/Chief Complaint Admitting Physician: Garrett Tong MD Primary Care Provider: Dilshad Bennett MD Chief Complaint: Chest Pain, SOB, Light headed, weak History of Present Illness As per the previous notes and the patient/family: Pankaj Perez is a 44 year old male w/pmhx of CVA, HTN, HLD, diastolic dysfunction presents with cc/of chest pain and shortness of breath. Patient states that since yesterday, he has been experiencing left-sided, pressure-like sensation with radiation to his neck. The pain started while he was sitting and was about to sleep. It was sharp without any diaphoresis, nausea or vomiting or any presyncope. The patient was mildly dizzy. But did not pass out. The patient also reported some increase in his lower leg swellings. But no orthopnea or PND. At baseline he has venous insufficiency but does not wear compression stockings due to insurance issues. He is also diagnosed to have sleep apnea however he is scheduled for sleep studies and currently not on any CPAP at night. The patient reported that he used the machine at some point and is comfortable in using it. Non-smoker, no drug abuse and no alcohol intake history. Patient was also found to have thrombocytopenia, but no easy bruising, any obvious source of bleeding or any hematuria. No previous history of any hematological disorder, liver cirrhosis or any splenomegaly. Review of Systems General: Reports: 10 or more systems reviewed and unremarkable except in HPI and below Medications/Allergies Home Medications ?Medication ?Instructions ?Recorded ?Confirmed ?Last Taken ?Type acetaminophen 325 mg tablet 325 - 650 mg PO QID PRN PAIN/FEVER 12/13/20 03/24/25 08/28/24 History (Tylenol) Compression leg wraps #2 ea 03/31/22 03/24/25 Unknown Rx pen needle, diabetic 31 gauge x #100 ea 06/07/23 03/24/25 Unknown Rx 5/16 (BD Ultra-Fine Short Pen Needle) Knee High Compression Socks 25-35mm #2 ea 06/26/23 03/24/25 Unknown Rx nystatin 100,000 unit/gram topical 1 applic topical DAILY #60 grams 08/30/23 03/24/25 Unknown Rx powder mupirocin 2 % topical ointment 1 applic topical TID 7 days #22 05/01/24 03/24/25 Unknown Rx grams compression socks, x-large #2 ea 06/03/24 03/24/25 Unknown Rx aspirin 81 mg tablet,delayed 81 mg PO DAILY #90 tabs 09/04/24 03/24/25 Unknown Rx release chlorthalidone 25 mg tablet 25 mg PO DAILY #90 tabs 11/11/24 03/24/25 Unknown Rx metoprolol tartrate 50 mg tablet See Rx Instructions .Route 11/11/24 03/24/25 Unknown Rx .COMPLEX #180 tabs allopurinol 100 mg tablet See Rx Instructions .Route 01/31/25 03/24/25 Unknown Rx .COMPLEX #90 tabs amlodipine 10 mg tablet See Rx Instructions .Route 01/31/25 03/24/25 Unknown Rx .COMPLEX #90 tabs celecoxib 100 mg capsule (Celebrex) 100 mg PO BID #60 caps 01/31/25 03/24/25 Unknown Rx losartan 100 mg tablet 100 mg PO DAILY #90 tabs 01/31/25 03/24/25 Unknown Rx tizanidine 4 mg tablet See Rx Instructions .Route 01/31/25 03/24/25 Unknown Rx .COMPLEX #60 tabs torsemide 20 mg tablet See Rx Instructions .Route 01/31/25 03/24/25 Unknown Rx .COMPLEX #180 tabs cetirizine 10 mg tablet (Zyrtec) 10 mg PO DAILY #30 tabs 02/19/25 03/24/25 Unknown Rx fluticasone propionate 50 1 spray intranasal BID #16 grams 02/19/25 03/24/25 Unknown Rx mcg/actuation nasal spray,suspension tirzepatide (weight loss) 5 mg/0.5 5 mg (0.5 mL) SUBCUT .qweekly #2 mL 02/24/25 03/24/25 Unknown Rx mL subcutaneous pen injector atorvastatin 40 mg tablet 40 mg PO BEDTIME #90 tabs 02/28/25 03/24/25 Unknown Rx Allergies Allergy/AdvReac Type Severity Reaction Status Date / Time ketorolac (From Toradol) Allergy ADR/ALGY-Pa Verified 03/24/25 14:31 lpitations lactose Allergy ADR-Diarrhe Verified 03/24/25 14:31 a topiramate Allergy Unknown Verified 03/24/25 14:31 tramadol Allergy Unknown Verified 03/24/25 14:31 PFSH Acute PFSH: Medical History (Updated 03/27/25 @ 23:46 by Stacia Kebede MD) BMI 50.0-59.9, adult Leukopenia Stroke-like episode Left facial numbness Abscess of skin of left ankle Abscess Epididymoorchitis Right testicular pain Indirect left inguinal hernia Right inguinal hernia Ventral hernia, recurrent Indirect right inguinal hernia Dental abscess BMI 60.0-69.9, adult Low testosterone Palpitations Grief Chest pain Testicular pain, right Arthritis Lumbar disc disease Bilateral carpal tunnel syndrome Low back pain of over 3 months duration Neck pain of over 3 months duration Stenosis of cervical spine with myelopathy Morbid obesity with BMI of 50.0-59.9, adult Cervical disc disorder with myelopathy of mid-cervical region Displacement of lumbar intervertebral disc Surgical History History of hernia repair Family History Mother SVT (supraventricular tachycardia) Arthritis Hypertension Grandfather Arthritis Dementia Diabetes Hypertension CAD (coronary artery disease) Cancer Grandmother Arthritis Dementia Diabetes Hypertension Cancer Other Lung disease Denies family history of Clotting disorder Chronic kidney disease (CKD) Anesthesia complication Bleeding disorder Stroke Social History Smoking and tobacco/nicotine status: never used tobacco/nicotine Alcohol intake: former Substance/Drug Use: never Household members: spouse and children Marital status: Current occupational status: unemployed Current gender identity: Male Vitals/I&O/Wt Last Vital Signs Temp 97.5 F L 03/27/25 21:12 Pulse 77 03/27/25 23:11 Resp 16 03/27/25 23:06 BP 132/76 03/27/25 23:11 Pulse Ox 94 03/27/25 23:11 O2 Del Method Room Air 03/27/25 23:11 Weight last 48 hrs Weight 176.901 kg Physical Exam Narrative: General: Morbidly obese gentleman, alert and oriented, lying comfortably without any distress HEENT: Normocephalic, atraumatic, grossly unremarkable exam Cardio: normal rate rhythm, normal S1-S2 without any murmurs, rubs, or gallops and JVD normal Respiratory: normal vascular breathing on auscultation without any wheezes, stridor, rhonchi GI: Abdomen soft, nontender, nondistended, normoactive bowel sounds present all 4 quadrants, Neuro: intact cranial nerves motor and sensory and cerebellar/coordination function without any focal neurological deficit Behavior: Appropriate and cooperative Extremities: Adequate palpable pulses, mild trace edema with chronic pigmented skin changes on the lower legs. Data 03/27/25 22:20 03/27/25 22:20 A&P Assessment and plan 1. Angina pectoris, unstable: Patient having heart score of around 4 Already took aspirin 4 tablets at home Continue home dose of baby aspirin 81 mg and atorvastatin Tropes negative Telemetry monitoring Echo has been recently done in August 2024 For nuclear stress test tomorrow Continue diet with avoidance of caffeinated products 2. CKD (chronic kidney disease): Currently stable, continue to monitor renal parameters and electrolytes with adequate intake and output monitoring Avoid nephrotoxic drugs NSAIDs like Motrin. Patient medications contain celecoxib, to reconcile and discontinue with discussion with the patient at the time of discharge. 3. CVA (cerebral vascular accident): Currently no residual deficit, resume home dose of aspirin and statin after reconciliation 4. HTN (hypertension): Patient home medication reviewed and on chlorthalidone 25 mg daily, amlodipine 10 mg daily and losartan 100 mg daily Patient blood pressure at presentation around 130s systolic Only had resumed 10 mg amlodipine and to resume rest of the antihypertensive medications depending upon the blood pressure 5. Lymphedema of both lower extremities: Leg elevation and compression stockings 6. Thrombocytopenia: Currently stable, no acute open no obvious source of bleeding Continue to monitor VTE, SCDs avoid heparin products for further drop in platelets Ultrasound liver and spleen to look for any underlying cause Considered hematology referral at the time of discharge for further workup PDMP PDMP Reviewed: Not Reviewed Attestations Medical Necessity Statement*: Patient will stay overnight for cardiac nuclear stress test and further management based on the results Time Spent in Patient Care: 16 - 35 minutes (>than 50% of time spent in counselling and/or direct pt care on unit). Other Attestations: Patient condition has been discussed at length with the patient/family, I have independently reviewed the chart labs imaging/diagnostics/EKG. the goals of care and code status with the patient/family/NOK/legal retail wireless sales representative, and documented accordingly. The management has been done according to the current clinical condition with respect to patient goals of care and based on recommendations/guidelines. The patient/family has been informed about the current condition and further plan of care. Agreed with the plan of care and understood without any language barrier. Every effort was made to ensure accuracy of mold yard worker. Any obvious errors or omissions should be clarified with the author of the document. Coding Level of Care Code Acute Code for Chg Fwd Diagnoses Angina pectoris, unstable I20.0 CKD (chronic kidney disease) N18.9 CVA (cerebral vascular accident) I63.9 HTN (hypertension) I10 Lymphedema of both lower extremities I89.0 Thrombocytopenia D69.6
[2025-03-28] VITALS (12 sets, daily range): BP systolic 118–153; BP diastolic 60–88; PULSE 59–83; RESP 14–23; TEMP 36.4; O2SAT 91–99
--- NOTE | 2025-03-28 | ECG_ITS ---
[employer] Test Date: 2025-03-28 Pat Name: Pankaj Perez Department: Room: 104 Gender: Male Fruit Raiser: : 1980 Requested By: Garrett Tong Order Number: [id number] Francisca MD: Kathe Smith M.D. Interpretive Statements Lung unchanged pre/post procedure; Intraprocedure shortess of breath; Symptoms resoled by discharge PROCEDURE: At the baseline, the EKG revealed normal sinus rhythm with normal ST Ts. The baseline heart was 64 bpm with a blood pressue of 126/75 mm of Hg Lexiscan was infused over a period of 20 seconds. A total of 0.4 milligrams of Lexiscan was infused. The stress phase was continued for a total of 5 minutes. Heart rate at the end of the stress phase was 63 bpm with a blood pressure 127/75 mm of Hg. The EKG at the peak infusion revealed no significant changes. Sestamibi was injected 20 seconds after the Lexiscan infusion. Heart rate at the end of the recovery phase was 63 bpm with a blood pressure of 129/78 mm of Hg. CONCLUSION: 1. No significant EKG changes with the LexiScan infusion 2. No LexiScan induced chest pain or cardiac arrhythmia 3. Normal blood pressure and heart rate response 4. Sestamibi/sestamibi perfusion scan pending; see separate report. Electronically Signed On 03-28-2025 19:48:17 YARD COUPLER by Kathe Smith M.D. [id number]
--- NOTE | 2025-03-28 00:16 | USR_ITS ---
PROCEDURE INFORMATION: Exam: US Duplex Artery or Vein of the Abdominal and/or Reproductive Organs, Limited Exam date and time: 03/28/2025 1:01 AM Age: 44 years old Clinical indication: Other: Thrombocytopenia; Additional info: For liver and spleen evaluation, patient has thrombocytopenia and to rule out any TECHNIQUE: Imaging protocol: Real-time duplex ultrasound scan of the arterial or venous flow of the abdomen and/or reproductive organs, with color Doppler flow and spectral waveform analysis with image documentation. Exam focused on the region of clinical interest. Duplex exam was performed to evaluate for vascular conditions. COMPARISON: US scrotum [id number] 08/01/2023 10:14 AM FINDINGS: Portal venous: Spectral sonography demonstrates a patent portal vein with smooth diastolic flow and gentle undulation, likely representing mild respiratory phasicity. Blood flow is hepatopetal in orientation. No evidence of occlusive thrombus. No portal venous abnormality identified. PROCEDURE INFORMATION: Exam: US Abdomen Complete Exam date and time: 03/28/2025 1:01 AM Age: 44 years old Clinical indication: Other: Thrombocytopenia; Additional info: For liver and spleen evaluation, patient has thrombocytopenia and to rule out any TECHNIQUE: Imaging protocol: Real-time ultrasound of the abdomen with image documentation. Complete exam. COMPARISON: CT abdomen pelvis w con* [id number] 08/10/2018 10:43 PM FINDINGS: Liver: The liver is enlarged. Hepatic echogenicity is within normal limits. Hepatic echotexture is normal. No hepatic contour nodularity. No solid hepatic observations are noted. Gallbladder: Cholelithiasis is present. The gallbladder wall is thickened measuring up to 0.9 cm. No pericholecystic fluid. A positive Cazares's sign was reported by the boom storage. Biliary ducts: The common bile duct measures up to 6 mm, within normal limits. No bile duct dilatation. Pancreas: The imaged pancreas is within normal limits. No ductal dilatation is noted. Right kidney: The right kidney measures 12.4 x 7.1 x 8.1 cm. Normal renal echogenicity and echotexture. Normal cortical thickness. No hydronephrosis, nephrolithiasis, or solid renal mass is noted. Left kidney: The left kidney measures 12.7 x 6.2 x 7.9 cm. Normal renal echogenicity and echotexture. Normal cortical thickness. No hydronephrosis, nephrolithiasis, or solid renal mass is noted. A 3.7 cm simple left renal cyst is noted. Spleen: The spleen measures 9.3 x 18.4 cm. Intraperitoneal space: No ascites is present. Aorta: The imaged aorta is patent and nonaneurysmal. Inferior vena cava: Normal. Portal venous: The portal vein is patent with hepatopetal flow. US/US abdomen complete* [id number] IMPRESSION: Unremarkable portal venous spectral waveform with hepatopetal blood flow. No portal venous thrombus. IMPRESSION: 1. Equivocal findings for acute calculus cholecystitis given positive sonographic Cazares's sign and gallbladder wall thickening. Chronic cholecystitis could have a similar appearance. Correlate with patient history/physical exam and laboratory values. HIDA scan can be obtained for further characterization. Surgical consultation can be considered. 2. Splenomegaly. 3. Hepatomegaly. Correlate with LFTs.
[2025-03-28 00:22] LABS: Magnesium 1.9 mg/dL (1.7-2.3); Thyroid Stimulating Hormone 2.14 uIU/mL (0.27-4.20)
[2025-03-28] MEDS: alum-mag-hydroxide-sime 30 mL UDC 15 ML PO ×2 (00:47→04:58)
[2025-03-28] MEDS: heparin 5,000 unit/mL INJ 1 mL 5000 UNIT SUBCUT (00:48)
[2025-03-28 01:35] LABS: Troponin 5 2HR 9.88 ng/L (0-15); Troponin 5 2HR Delta 0.88 ABS# (0-10)
--- NOTE | 2025-03-28 02:46 | ECG_ITS ---
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
[2025-03-28 04:37] LABS: Hematocrit 37.5 % (37-53); Hemoglobin 12.90 g/dL (11.27-16.99); Mean Corpuscular HGB Conc 34.4 g/dL (30-55); Mean Corpuscular Hemoglobin 32.2 pg (27-33); Mean Corpuscular Volume 93.5 fl (82-101); Nucleated Red Blood Cells % 0 %; Platelet Count 87 10^3/cmm (157-399); Red Blood Count 4.01 10^6/uL (3.85-5.65); White Blood Count 4.17 10^3/uL (3.29-11.43)
[2025-03-28 04:55] LABS: Alanine Aminotransferase 36 U/L (0-41); Albumin Level 4.2 g/dL (3.5-5.2); Alkaline Phosphatase 99 U/L (40-130); Anion Gap 16.0 (5-19); Aspartate Amino Transferase 32 U/L (0-40); Blood Urea Nitrogen 22 mg/dL (6-20); Calcium 9.6 mg/dL (8.5-10.5); Carbon Dioxide 25 mmol/L (22-29); Chloride 104 mmol/L (98-107); Creatinine Clr Calc Pharmacy 93.3345; Globulin 2.4 g/dL (1.3-4.6); Glucose 101 mg/dL (65-115); Osmolality Calculated 295 mOsm/kg (285-295); Potassium 4.0 mmol/L (3.5-5.1); Sodium 141 mmol/L (136-145); Total Protein 6.6 g/dL (6.6-8.7)
--- NOTE | 2025-03-28 05:46 | ECG_ITS ---
[facility]25-[facility]28 Pat Name: Pankaj Perez Department: Room: EDIP Gender: Male Psychiatric Orderly: : 1980 Requested By: Garrett Tong Order Number: [id number] Reading MD: RAFAT HARRINGTON Measurements Intervals [place] Rate: 59 P: -21 IL: 240 QRS: 132 QRSD: 109 T: -18 QT: 432 QTc: 429 Interpretive Statements SINUS BRADYCARDIA WITH FIRST DEGREE AV BLOCK POSSIBLE RIGHT VENTRICULAR HYPERTROPHY [SOME/ALL OF: PROMINENT R IN V1, LATE TRANSITION, RAD, SCOTTIE, SSS] INFERIOR MYOCARDIAL INFARCTION , PROBABLY OLD [40+ ms Q WAVE AND/OR ST/T ABNORMALITY IN II/aVF] Compared to ECG 03/28/2025 02:50:05 First degree AV block now present Myocardial infarct finding now present Sinus rhythm no longer present Electronically Signed On 03-29-2025 16:08:09 COAT CHECKER by RAFAT HARRINGTON [email or web address] [id number]
--- NOTE | 2025-03-28 06:40 | NMCV_ITS ---
NM joycelyn perf SPECT r/s* [id number] Pankaj Perez Age: 44 Gender: M : 1980 Exam Date: 03/28/2025 11:01 Ordering Phys: Garrett Tong MD Technologist: LAURIE Velázquez Exam Location: [facility] Indications: cp STRESS TEST [facility] IMAGE PROTOCOL Rest/Stress 1 Lexiscan Day Radiopharmaceutical Dose (mCi) Administration Site Administered by Rest: Tc-99m 11 IV Ingrid Lynne, DOWNSTREAM BIOMANUFACTURING TECHNICIAN Sestamibi Stress:Tc-99m 33 IV Ingrid Yuly, DOWNSTREAM BIOMANUFACTURING TECHNICIAN Sestamibi Rest: 28-Mar-2025 60 Discovery 630 Stress: 28-Mar-2025 30 Discovery 630 0.4mg Lexiscan. Supine position only as patient was unable to lay prone. SPECT RESULTS Technical Quality: Good Raw Data Analysis: Soft tissue attenuation Image Corrections: No attenuation or motion correction applied Summed Stress Score: 0 Summed Rest Score: 2 Summed Difference Score: 0 PERFUSION FINDINGS A small area of slightly decreased tracer uptake was noted in the basal, mid and apical inferolateral region. No significant reversibility was noted in this area. FUNCTIONAL RESULTS (calculated via Gated SPECT) Stress Image LV EF (%): 61 Stress EDV (mL):181 TID: 1 Stress ESV (mL):71 FUNCTIONAL FINDINGS: Segmental wall motion analysis revealing no gross wall motion abnormalities IMPRESSIONS 1. Myocardial perfusion imaging revealing a small area of persistent decreased tracer uptake involving the inferolateral region, most likely represent attenuation artifact. 2. Normal LV ejection fraction of 61%. 3. LV wall motion analysis revealing no gross wall motion abnormalities. 4. Mildly dilated LV cavity with an end-systolic volume of 71 mL Low probability for coronary ischemia, based on the above findings Dr Kathe Smith MD FACC (Electronically Signed) Final Date: 28 March 2025 13:19 S
--- NOTE | 2025-03-28 10:20 | CT_ITS ---
WS: [id number] CT HEAD TECHNIQUE: Noncontrast CT of the head obtained from the skullbase to the vertex. CLINICAL INFORMATION: dizziness, h/o stroke, possible post circulation stroke COMPARISON: CT 08/28/2024 DLP: 1211.[address] scans at [facility] use at least one of these dose optimization techniques: automated exposure control; mA and/or kV adjustment per patient size (includes targeted exams where dose is matched to clinical indication); or iterative reconstruction. FINDINGS: No evidence of intracranial hemorrhage or mass effect. Ventricular system and basal cisterns are patent. Incidental cavum septum pellucida and vergae. No extra-axial fluid collections. No evidence of mass or mass effect. Normal kohler-white differentiation. Paranasal sinuses and mastoid air cells are well aerated. .Normal visualized soft tissues. CT/CT head wo con* [id number] IMPRESSION: 1. No evidence of intracranial hemorrhage or mass effect. 2. No acute intracranial findings.
--- NOTE | 2025-03-28 11:46 | PM.MISC ---
Miscellaneous Note Note: Attempted to see pt. Gone for stress test. Low suspicion for cholecystitis given normal white count and absence of symptoms according to family in room. Will return later.
--- NOTE | 2025-03-28 13:28 | P.DS_ITS ---
Discharge Providers Date of Admission: 03/28/25 01:19 Date of Discharge: March 28, 2025 Attending Provider at Admission: Garrett Tong MD Attending Provider at Discharge: Priyank Mckeon MD Consults: Surgery: Dr. Gaines Primary Care Provider: Dilshad Bennett MD Diagnoses at Discharge Discharge Diagnosis 1. Angina pectoris, unstable: 2. CKD (chronic kidney disease): 3. CVA (cerebral vascular accident): 4. HTN (hypertension): 5. Lymphedema of both lower extremities: 6. Thrombocytopenia: Reason for Visit Reason for Visit: Chest Pain, SOB, Light headed, weak Brief History: As per the previous notes and the patient/family: Pankaj Perez is a 44 year old male w/pmhx of CVA, HTN, HLD, diastolic dysfunction presents with cc/of chest pain and shortness of breath. Patient states that since yesterday, he has been experiencing left-sided, pressure-like sensation with radiation to his neck. The pain started while he was sitting and was about to sleep. It was sharp without any diaphoresis, nausea or vomiting or any presyncope. The patient was mildly dizzy. But did not pass out. The patient also reported some increase in his lower leg swellings. But no orthopnea or PND. At baseline he has venous insufficiency but does not wear compression stockings due to insurance issues. He is also diagnosed to have sleep apnea however he is scheduled for sleep studies and currently not on any CPAP at night. The patient reported that he used the machine at some point and is comfortable in using it. Non-smoker, no drug abuse and no alcohol intake history. Patient was also found to have thrombocytopenia, but no easy bruising, any ob vious source of bleeding or any hematuria. No previous history of any hematological disorder, liver cirrhosis or any splenomegaly. Hospital Course Hospital Course Patient was sent to the hospital further evaluation and management of chest heaviness. Troponin cycled were negative. He underwent cardiac stress test which was negative for acute ischemia. During hospitalization patient complained of occasional dizziness on changing position. His antihypertensive were adjusted. He remained orthostatic negative. His blood pressures remained stable on lower antihypertensive. On admission abdominal ultrasound was done which was concerning for possible acute calculous cholecystitis. Patient did not have any abdominal pain, no leukocytosis and had no transaminitis. Surgery was consulted and cholecystitis was clinically ruled out. It is possible patient's symptoms are most likely in setting of undiagnosed sleep apnea along with hypotension because of multiple antihypertensives. Patient is advised to have sleep study at the earliest. His antihypertensive been adjusted. Has been discharged hemodynamically stable condition on adjusted antihypertensive with advice to check his BP daily at home with goal blood pressure between 100-140 systolics. Physical Exam Narrative: General: Morbidly obese gentleman, alert and oriented, lying comfortably without any distress HEENT: Normocephalic, atraumatic, grossly unremarkable exam Cardio: normal rate rhythm, normal S1-S2 without any murmurs, rubs, or gallops and JVD normal Respiratory: normal vascular breathing on auscultation without any wheezes, stridor, rhonchi GI: Abdomen soft, nontender, nondistended, normoactive bowel sounds present all 4 quadrants, Neuro: intact cranial nerves motor and sensory and cerebellar/coordination function without any focal neurological deficit Behavior: Appropriate and cooperative Extremities: Adequate palpable pulses, mild trace edema with chronic pigmented skin changes on the lower legs. Discharge Data Studies Completed and Pending Completed Studies During Hospitalization Category Date Time Status CT head wo con* [id number] Routine Cat Scan 03/28/25 10:20 Completed Cardiac Stress Test MIBI [Sestamibi Stress Test Request Exams 03/28/25 06:39 Draft ] Routine XR chest 1V portable [id number] Stat Exams 03/27/25 21:19 Completed NM joycelyn perf SPECT r/s* [id number] Routine Nuc Med 03/28/25 06:40 Completed US abdomen complete* [id number] Routine Ultrasound 03/28/25 00:16 Completed Pending at discharge Category Date Time Status Complete Blood Count w/Auto AM LABS Lab 03/29/25 04:00 Ordered Comprehensive Metabolic Panel AM LABS Lab 03/29/25 04:00 Ordered Radiology Impressions Chest X-Ray 03/27/25 21:19 IMPRESSION: No acute cardiopulmonary findings. Abdomen Ultrasound 03/28/25 00:16 IMPRESSION: Unremarkable portal venous spectral waveform with hepatopetal blood flow. No portal venous thrombus. IMPRESSION: 1. Equivocal findings for acute calculus cholecystitis given positive sonographic Cazares's sign and gallbladder wall thickening. Chronic cholecystitis could have a similar appearance. Correlate with patient history/physical exam and laboratory values. HIDA scan can be obtained for further characterization. Surgical consultation can be considered. 2. Splenomegaly. 3. Hepatomegaly. Correlate with LFTs. ADDENDUM: 03/28/25 0209 The findings were verbally communicated via telephone conference with Dr. Clayton at 2:07 AM [employer] OPERATIONS INTELLIGENCE OFFICER on 03/28/2025. The findings were acknowledged and understood. Head CT 03/28/25 10:20 IMPRESSION: 1. No evidence of intracranial hemorrhage or mass effect. 2. No acute intracranial findings. Lexiscan Stress test PERFUSION FINDINGS A small area of slightly decreased tracer uptake was noted in the basal, mid and apical inferolateral region. No significant reversibility was noted in this area. FUNCTIONAL RESULTS (calculated via Gated SPECT) Stress Image LV EF (%): 61 Stress EDV (mL):181 TID: 1 Stress ESV (mL):71 FUNCTIONAL FINDINGS: Segmental wall motion analysis revealing no gross wall motion abnormalities IMPRESSIONS 1. Myocardial perfusion imaging revealing a small area of persistent decreased tracer uptake involving the inferolateral region, most likely represent attenuation artifact. 2. Normal LV ejection fraction of 61%. 3. LV wall motion analysis revealing no gross wall motion abnormalities. 4. Mildly dilated LV cavity with an end-systolic volume of 71 mL Low probability for coronary ischemia, based on the above findings Dr Kathe Smith MD [facility] (Electronically Signed) Final Date: 28 March 2025 Laboratory Results WBC 4.17 10^3/uL (3.29-11.43) 03/28/25 04:26 RBC 4.01 10^6/uL (3.85-5.65) 03/28/25 04:26 Hgb 12.90 g/dL (11.27-16.99) 03/28/25 04:26 Hct 37.5 % (37-53) 03/28/25 04:26 MCV 93.5 fl (82-101) 03/28/25 04:26 MCH 32.2 pg (27-33) 03/28/25 04:26 MCHC 34.4 g/dL (30-55) 03/28/25 04:26 RDW 13.9 % (12.1-15.1) 03/28/25 04:26 Plt Count 87 10^3/cmm (157-399) L 03/28/25 04:26 MPV 10.7 fL (7.4-10.4) H 03/28/25 04:26 Neut % (Auto) 60.2 % 03/28/25 04:26 Lymph % (Auto) 30.2 % 03/28/25 04:26 [place] % (Auto) 7.2 % 03/28/25 04:26 Eos % (Auto) 1.7 % 03/28/25 04:26 Baso % (Auto) 0.5 % 03/28/25 04:26 Neut # (Auto) 2.51 10^3/uL (1.8-7.7) 03/28/25 04:26 Lymph # (Auto) 1.3 10^3/uL (0.8-4.8) 03/28/25 04:26 [place] # (Auto) 0.3 10^3/uL (0.2-0.9) 03/28/25 04:26 Eos # (Auto) 0.1 10^3/uL (0.0-0.8) 03/28/25 04:26 Baso # (Auto) 0.0 10^3/uL (0.0-0.1) 03/28/25 04:26 Nucleated RBC % (auto) 0 % 03/28/25 04:26 Nucleated RBCs # 0.0 /100WBC 03/28/25 04:26 Sodium 141 mmol/L (136-145) 03/28/25 04:26 Potassium 4.0 mmol/L (3.5-5.1) 03/28/25 04:26 Chloride 104 mmol/L (98-107) 03/28/25 04:26 Carbon Dioxide 25 mmol/L (22-29) 03/28/25 04:26 Anion Gap 16.0 (5-19) 03/28/25 04:26 BUN 22 mg/dL (6-20) H 03/28/25 04:26 Creatinine 1.6 mg/dL (0.7-1.2) H 03/28/25 04:26 GFR Calculation 47.0 mL/min (90-130) L 03/28/25 04:26 Glucose 101 mg/dL (65-115) 03/28/25 04:26 Calculated Osmolality 295 mOsm/kg (285-295) 03/28/25 04:26 Calcium 9.6 mg/dL (8.5-10.5) 03/28/25 04:26 Phosphorus 3.0 mg/dL (2.5-4.5) 03/27/25 22:20 Magnesium 1.9 mg/dL (1.7-2.3) 03/27/25 22:20 Total Bilirubin 0.7 mg/dL (0.15-1.2) 03/28/25 04:26 AST 32 U/L (0-40) 03/28/25 04:26 ALT 36 U/L (0-41) 03/28/25 04:26 Alkaline Phosphatase 99 U/L (40-130) 03/28/25 04:26 Troponin T Baseline 9 ng/L (0-15) 03/27/25 22:20 Troponin T 120 Minute 9.88 ng/L (0-15) 03/28/25 01:03 Delta Troponin T 0.88 ABS# (0-10) 03/28/25 01:03 NT-Pro-B Natriuret Pep < 36 pg/mL (0-125) 03/27/25 22:20 Total Protein 6.6 g/dL (6.6-8.7) 03/28/25 04:26 Albumin 4.2 g/dL (3.5-5.2) 03/28/25 04:26 Globulin 2.4 g/dL (1.3-4.6) 03/28/25 04:26 TSH 2.14 uIU/mL (0.27-4.20) 03/27/25 22:20 Vitals Last Vital Signs Temp 97.6 F 03/28/25 12:00 Pulse 62 03/28/25 12:07 Resp 19 H 03/28/25 12:00 BP 129/78 03/28/25 12:07 Pulse Ox 95 03/28/25 12:00 O2 Del Method Room Air 03/28/25 12:00 Discharge Plan Discharge Patient Disposition: Home Condition: Stable Prescriptions: Continued (DME) Compression leg wraps large See Rx Instructions .Route .MEDSUPPLY Qty: 2 5RF Rx Instructions: As directed (DME) Knee High Compression Socks 25-35mm See Rx Instructions .Route .MEDSUPPLY Qty: 2 0RF Rx Instructions: As directed by [facility] 2 pairs q6 months for life (DME) compression socks, x-large Misc See Rx Instructions .Route Qty: 2 11RF Rx Instructions: As directed 25-35 millimeters of mercury knee high compression socks aspirin 81 mg tablet,delayed release (DR/EC) 81 mg PO DAILY Qty: 90 1RF (DME) pen needle, diabetic [BD Ultra-Fine Short Pen Needle] 31 gauge x 5/16 needle See Rx Instructions .Route Qty: 100 0RF Rx Instructions: use to inject once a week. metoprolol tartrate 50 mg tablet See Rx Instructions .ROUTE .COMPLEX Qty: 180 1RF Dose Instruction: take ONE tablet BY MOUTH TWICE DAILY Rx Instructions: Take ONE tablet BY MOUTH TWICE DAILY. tizanidine 4 mg tablet See Rx Instructions .ROUTE .COMPLEX Qty: 60 3RF Dose Instruction: TAKE 1 TABLET BY MOUTH TWICE DAILY NEEDED FOR MUSCLE SPASTICITY Rx Instructions: TAKE 1 TABLET BY MOUTH TWICE DAILY NEEDED FOR MUSCLE SPASTICITY amlodipine 10 mg tablet See Rx Instructions .ROUTE .COMPLEX Qty: 90 1RF Dose Instruction: TAKE 1 TABLET BY MOUTH EVERY DAY Rx Instructions: TAKE 1 TABLET BY MOUTH EVERY DAY tirzepatide (weight loss) 5 mg/0.5 mL pen injector 5 mg SUBCUT .qweekly Qty: 2 1RF Rx Instructions: ' atorvastatin 40 mg tablet 40 mg PO BEDTIME Qty: 90 1RF acetaminophen [Tylenol] 325 mg Tablet 325 - 650 mg PO QID PRN (Reason: PAIN/FEVER) cetirizine [Zyrtec] 10 mg tablet 10 mg PO DAILY PRN (Reason: allergies) allopurinol 100 mg tablet 100 mg PO DAILY fluticasone propionate 50 mcg/actuation spray,suspension 1 spray intranasal BID PRN (Reason: allergies) Rx Instructions: administer into each nostril Changed losartan 100 mg tablet 50 mg PO DAILY Qty: 90 1RF Discontinued chlorthalidone 25 mg tablet 25 mg PO DAILY Qty: 90 1RF torsemide 20 mg tablet See Rx Instructions .ROUTE .COMPLEX Qty: 180 1RF Dose Instruction: take TAKE 2 TABLETS BY MOUTH EVERY MORNING and ONE at NOON Rx Instructions: Take TAKE 2 TABLETS BY MOUTH EVERY MORNING and ONE at NOON celecoxib [Celebrex] 100 mg capsule 100 mg PO BID Qty: 60 3RF Discharge Order = DC NOW: Discharge Order (Routine); Ordered 11/07/25 Ordered By: Priyank Mckeon Other Ambulatory Orders: Sleep Study W Sleep Stage (Routine) Timeframe: 1 Week Facility: [facility] - Location: [facility] Ordered By: Priyank Mckeon Referrals: Dilshad Bennett MD [Primary Care Provider, Family Practice] - 1 week Discharge Diet: Cardiac Discharge Activity: Resume usual activity and Increase activity as tolerated Patient Instructions: Opioid Safety, Patient Portal & Anastacio Instructions Activity Restrictions/Additional Instructions: Check your BP daily. Goal BP is less than 140/90 mmhg. Follow up with your PCP for further adjustment of anti-hypertensive. Stop Chlorthalidone and Torsemide for now. Dose of losartan has been decreased to 50 mg daily. Please have sleep study at the earliest. DC after stress results and surgey consultation. Discharge Attestations Time Spent in Discharge Care*: greater than 30 min Specific Discharge Activities: educating patient, educating and/or supporting family/caregiver, discussing with pcp/other providers, discussing with pillowcase cutter/social workers/dc planners, documenting/other paperwork and evaluating patient/reviewing data Status at Discharge: Cognitive status at discharge: cognitively intact , Behavioral status at discharge: cooperative , Functional status at discharge: independent ambulation , Overall status at discharge: patient is back to baseline Quality Metrics Clinical Quality Measures [ No reported AMI, CVA or VTE this stay] Coding Level of Care Code 09397 Total time (in minutes) for Discharge: 65 Diagnoses Angina pectoris, unstable I20.0 CKD (chronic kidney disease) N18.9 Chronic kidney disease stage: unspecified stage CVA (cerebral vascular accident) I63.9 HTN (hypertension) I10 Lymphedema of both lower extremities I89.0 Thrombocytopenia D69.6
--- NOTE | 2025-03-28 13:31 | PM.CONSULT ---
Providers/Reason For Consult Consulting Physician/Specialty*: Dr. Gaines general surgery Reason for Consult*: Cholelithiasis Attending Physician: Priyank Mckeon MD Primary Care Provider: Dilshad Bennett MD History of Present Illness History of Present Illness Pankaj Perez is a 44 year old male morbid obesity whom surgery was consulted for incidental finding on ultrasound of gallstones. Patient is asymptomatic. No abdominal pain. Medications/Allergies Home Medications ?Medication ?Instructions ?Recorded ?Confirmed ?Last Taken ?Type acetaminophen 325 mg tablet 325 - 650 mg PO QID PRN PAIN/FEVER 12/13/20 03/28/25 08/28/24 History (Tylenol) Compression leg wraps #2 ea 03/31/22 03/28/25 Unknown Rx pen needle, diabetic 31 gauge x #100 ea 06/07/23 03/28/25 Unknown Rx 5/16 (BD Ultra-Fine Short Pen Needle) Knee High Compression Socks 25-35mm #2 ea 06/26/23 03/28/25 Unknown Rx compression socks, x-large #2 ea 06/03/24 03/28/25 Unknown Rx aspirin 81 mg tablet,delayed 81 mg PO DAILY #90 tabs 09/04/24 03/28/25 03/27/25 Rx release chlorthalidone 25 mg tablet 25 mg PO DAILY #90 tabs 11/11/24 03/28/25 03/27/25 Rx metoprolol tartrate 50 mg tablet See Rx Instructions .Route 11/11/24 03/28/25 03/27/25 Rx .COMPLEX #180 tabs amlodipine 10 mg tablet See Rx Instructions .Route 01/31/25 03/28/25 03/27/25 Rx .COMPLEX #90 tabs celecoxib 100 mg capsule (Celebrex) 100 mg PO BID #60 caps 01/31/25 03/28/25 03/27/25 Rx losartan 100 mg tablet 100 mg PO DAILY #90 tabs 01/31/25 03/28/25 03/27/25 Rx tizanidine 4 mg tablet See Rx Instructions .Route 01/31/25 03/28/25 03/25/25 Rx .COMPLEX #60 tabs torsemide 20 mg tablet See Rx Instructions .Route 01/31/25 03/28/25 03/27/25 Rx .COMPLEX #180 tabs tirzepatide (weight loss) 5 mg/0.5 5 mg (0.5 mL) SUBCUT .qweekly #2 mL 02/24/25 03/28/25 03/27/25 Rx mL subcutaneous pen injector atorvastatin 40 mg tablet 40 mg PO BEDTIME #90 tabs 02/28/25 03/28/25 03/26/25 Rx allopurinol 100 mg tablet 100 mg PO DAILY 03/28/25 03/28/25 03/27/25 History cetirizine 10 mg tablet (Zyrtec) 10 mg PO DAILY PRN allergies 03/28/25 03/28/25 Unknown History fluticasone propionate 50 1 spray intranasal BID PRN 03/28/25 03/28/25 Unknown History mcg/actuation nasal allergies spray,suspension Allergies Allergy/AdvReac Type Severity Reaction Status Date / Time ketorolac (From Toradol) Allergy ADR/ALGY-Pa Verified 03/24/25 14:31 lpitations lactose Allergy ADR-Diarrhe Verified 03/24/25 14:31 a topiramate Allergy Unknown Verified 03/24/25 14:31 tramadol Allergy Unknown Verified 03/24/25 14:31 Current Medications Generic Name Dose Route Start Last Admin Trade Name Freq PRN Reason Stop Dose Admin Al Hydrox/Mg Hydrox/Simethicone 15 ml 03/27/25 23:45 03/28/25 04:58 Lfhi-Sdl-Htowacfoi-Liberty 30 Ml Udc PO 15 ml Q6H ROLA Administration Aspirin 81 mg 03/28/25 05:00 03/28/25 04:58 Aspirin 81 Mg Ec Tablet PO 81 mg DAILY ROLA Administration Famotidine 20 mg 03/27/25 23:45 03/28/25 00:47 Famotidine 20 Mg/2 Ml Inj IVP 20 mg Q12H ROLA Administration Nitroglycerin 0.4 mg 03/27/25 22:09 03/27/25 22:43 Nitroglycerin 0.4 Mg Sublingual Tablet SUBLINGUAL 0.4 mg Q5M PRN Administration CHEST PAIN Senna 17.2 mg 03/27/25 23:45 03/28/25 00:47 Sennosides 8.6 Mg Tablet PO 17.2 mg BEDTIME ROLA Administration PFSH Acute PFSH: Medical History (Updated 03/28/25 @ 13:32 by Gerardo Gaines MD) BMI 50.0-59.9, adult Leukopenia Stroke-like episode Left facial numbness Abscess of skin of left ankle Abscess Epididymoorchitis Right testicular pain Indirect left inguinal hernia Right inguinal hernia Ventral hernia, recurrent Indirect right inguinal hernia Dental abscess BMI 60.0-69.9, adult Low testosterone Palpitations Grief Chest pain Testicular pain, right Arthritis Lumbar disc disease Bilateral carpal tunnel syndrome Low back pain of over 3 months duration Neck pain of over 3 months duration Stenosis of cervical spine with myelopathy Morbid obesity with BMI of 50.0-59.9, adult Cervical disc disorder with myelopathy of mid-cervical region Displacement of lumbar intervertebral disc Surgical History History of hernia repair Family History Mother SVT (supraventricular tachycardia) Arthritis Hypertension Grandfather Arthritis Dementia Diabetes Hypertension CAD (coronary artery disease) Cancer Grandmother Arthritis Dementia Diabetes Hypertension Cancer Other Lung disease Denies family history of Clotting disorder Chronic kidney disease (CKD) Anesthesia complication Bleeding disorder Stroke Social History Smoking and tobacco/nicotine status: never used tobacco/nicotine Alcohol intake: former Substance/Drug Use: never Household members: spouse and children Marital status: Current occupational status: unemployed Current gender identity: Male Vitals/I&O/Wt Last Vital Signs Temp 97.6 F 03/28/25 12:00 Pulse 62 03/28/25 12:07 Resp 19 H 03/28/25 12:00 BP 129/78 03/28/25 12:07 Pulse Ox 95 03/28/25 12:00 O2 Del Method Room Air 03/28/25 12:00 Weight last 48 hrs Weight 390 lb Physical Exam Narrative: Chest: Unlabored breathing room air. No lymphadenopathy. Heart: Regular rate and rhythm. Abdomen: Soft, nontender, nondistended. No masses or lymphadenopathy. Data 03/28/25 04:26 03/28/25 04:26 A&P Assessment and plan 1. Cholelithiasis: Plan: 44-year-old male whom surgery was consulted for incidental gallstones and ultrasound of the abdomen. Patient is asymptomatic. Ultrasound findings are incidental and do not require additional workup or management. He can always follow-up as needed my office. Discussed with hospitalist PDMP PDMP Reviewed: Not Reviewed Coding Level of Care Code 46742 Diagnoses Cholelithiasis K80.20
--- OUTSIDE RECORDS SUMMARY | 2025-03-28 17:28 | XMS_ITS | Patient Health Record ---
Author Organization [facility] Address [address] [place] [address] Care Team Providers Care School Bus Technician Name Role Phone Leatha Anand Primary Care Provider [phone] Allergies Allergen (clinical drug ingredient) Drug/Non Drug [...] W/U Status Risk Notes Problem Essential hypertension (76740891) Essential hypertension (I10) Active confirmed Problem Chronic gouty arthritis (14474249) Chronic gout without tophus, unspecified cause, unspecified site (M1A.9XX0) Active confirmed Problem Paroxysmal supraventricular tachycardia (15634055) Supraventricular tachycardia, paroxysmal (I47.1) Active confirmed Problem Morbid obesity (962823254) Morbid obesity (278.01) 2010 Active confirmed [id number] Problem Low back pain (084375433) Low back pain (724.2) 2010 Active confirmed [id number]- Problem Hypercholesterolemia (19561707) Hypercholesterolemia (272.0) 2010 Active confirmed [id number]- Problem Benign essential hypertension (0880166) Mild hypertension (401.1) 2010 Active confirmed [id number]- Problem Mitral valve disease (93193317) Mitral valve disease (394.9) 2010 Active confirmed [id number]- Problem Vitamin D deficiency (99889430) Vitamin D deficiency (268.9) 2010 Problem resolved confirmed [id number]- Problem Lesion of ulnar nerv e (800409979) 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) 2010 Problem resolved confirmed [id number]- Problem Open wound of foot (149672955) Open wound on the foot (892.0) 2010 Problem resolved confirmed [id number]- Problem Lateral epicondyliti s (532620599) Lateral epicondylitis (726.32) 2010 Problem resolved confirmed [id number]- Problem Acute maxillary sinusitis (91807530) Acute sinusitis, maxillary (461.0) 2010 Problem resolved confirmed [id number]- Problem Lateral epicondyliti s (164862846) Tennis elbow (726.32) 2010 Problem resolved confirmed [id number]- Problem Knee pain (0974688997) Knee pain (719.46) 2010 Problem resolved confirmed [id number]- Plan Of Treatment No Information Insurance Providers Payer Name Payer Address Payer Phone Subscriber Number Group Number Insured Name Patient Relationship to Insured Coverage Start Date Coverage End Date [facility] Medicaid Replacement [address] 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
== END 2025-03-28 17:04 | disposition home or self-care (01) ==
LOC: ER 23:55 → ER IP 03-28 02:43 → CSU 03-28 09:49 → ER IP 03-28 17:26
PROVIDERS: Admitting Provider Student in an Organized Health Care Education/Training Program; Emergency Provider Emergency Medicine; PCP Family Medicine; Visit Provider Student in an Organized Health Care Education/Training Program
DX: I20.0 Unstable angina (principal); I12.9 Hypertensive chronic kidney disease with stage 1 through stage 4 chronic kidney disease, or unspecified chronic kidney disease; N18.9 Chronic kidney disease, unspecified; I63.9 Cerebral infarction, unspecified; I89.0 Lymphedema, not elsewhere classified; D69.6 Thrombocytopenia, unspecified; Z79.82 Long term (current) use of aspirin; R00.2 Palpitations; E66.01 Morbid (severe) obesity due to excess calories; Z68.43 Body mass index [BMI] 50.0-59.9, adult; Z82.49 Family history of ischemic heart disease and other diseases of the circulatory system; K80.20 Calculus of gallbladder without cholecystitis without obstruction
CPT/HCPCS: 36415; 70450; 71045; 76700; 78452; 80048; 80053; 83735; 83880; 84100; 84443; 84484; 85025; 93005; 93017; 96372; 96374; 96375; 99285; A9500; G0378; J1644; J2270; J2405; J2785; J3490; J9999

== ENCOUNTER → 2025-04-03 10:38 | Outpatient (BNVA) | payer MEDICAID, SELFPAY | PROVIDERS: PCP Family Medicine; Visit Provider Family Medicine | DX: N17.9 Acute kidney failure, unspecified (principal) | CPT/HCPCS: 80053; 85025 ==

== ENCOUNTER → 2025-04-11 11:40 | Outpatient (BNVA) | payer MEDICAID, SELFPAY | PROVIDERS: PCP Family Medicine; Visit Provider Family Medicine | DX: N17.9 Acute kidney failure, unspecified (principal) | CPT/HCPCS: 80048 ==

== ENCOUNTER → 2025-04-25 13:19 | Outpatient (BNVA) | payer MEDICAID, SELFPAY | PROVIDERS: PCP Family Medicine; Visit Provider Family Medicine | DX: N17.9 Acute kidney failure, unspecified (principal) | CPT/HCPCS: 80048 ==

== ENCOUNTER 2025-05-06 19:56 | Outpatient (CLI) | payer MEDICAID, SELFPAY | END 2025-05-06 19:57 | disposition home or self-care (01) | LOC: SLEEP 19:57 | PROVIDERS: PCP Family Medicine; Referring Provider Student in an Organized Health Care Education/Training Program; Visit Provider Internal Medicine Pulmonary Disease | DX: G47.33 Obstructive sleep apnea (adult) (pediatric) (principal); G47.36 Sleep related hypoventilation in conditions classified elsewhere | CPT/HCPCS: 95810 ==